=== PATIENT | male | born 1950 | race Caucasian/White ===

== ENCOUNTER 2016-11-15 01:19 | Inpatient (IN) | payer OTHER ==
[2016-11-15] VITALS (141 sets, daily range): BP systolic -4–141; BP diastolic -5–106; PULSE 81–153; TEMP 33.9–38.9; O2SAT 83–100; Ht 172.7 cm; Wt 90.5 kg
[~2016-11-15] VITALS: Ht 172.7 cm; Wt 90.5 kg
[~2016-11-15 01:19] MED LIST: AMX500 PO
[2016-11-15] MEDS ORDERED: HEPARIN SOD (PORCINE) 1000 UNIT/ML 10 ML VIAL ONE (01:26)
[2016-11-15] MEDS ORDERED: FENTANYL CITRATE INJ 50 MCG/1 ML 2 ML VIAL ONE ×2 (01:26→03:55)
[2016-11-15] MEDS ORDERED: NiCARDipine HCL INJ 2.5 MG/ML 10 ML AMP ONE (01:26)
[2016-11-15] MEDS ORDERED: MIDAZOLAM HCL 1 MG/ML 2ML VIAL ONE (01:26)
[2016-11-15] MEDS ORDERED: NITROGLYCERIN/D5W 100MCG/ML 20ML SYR ONE (01:27)
[2016-11-15] MEDS ORDERED: SODIUM CHLORIDE 0.9% 1000ML 1,000 ML IV STA (01:28)
[2016-11-15] MEDS ORDERED: MoRPHine SULFATE 2 MG/ML CARP IV PRN (01:30)
[2016-11-15] MEDS ORDERED: NITROGLYCERIN 0.4 MG SL PER TAB CHARGE SL PRN (01:30)
--- NOTE | 2016-11-15 01:35 | EMERGENCY ROOM VISIT NOTE ---
History Report prepared by Cassidy: Jeannette Francisco Under the Supervision of: Dr. Frank Tan M.D. First contact with patient: 01:08 Chief Complaint: HEART ALERT Stated Complaint: CHEST PAIN History of Present Illness The patient is a 65 year old male who presents to the Emergency Room with complaints of persistent chest pain that began earlier today, but worsened around 1700. He currently rates his discomfort as a 2/10, but states that it was initially 10/10 around 1700. Per EMS the patient was moving furniture all day and was experiencing persistent chest pain. EMS reports that the patient developed crushing chest pain that he rated as a 10/10 in severity. EMS reports that the patient additionally complained of diaphoresis, shortness of breath, and nausea. EMS states that the the patient has a history of hypertension and GERD and a family history of heart disease. The patient states that his father at 51 of a heart attack. The patient states that his pain radiated into his left neck and left shoulder. EMS reports that the patient called them around midnight regarding his pain. EMS reports that the patient received 324 mg of aspirin 4 mg of Zofran and 100 mcg of Fentanyl that has alleviated his discomfort from a 10/10 to a 2/10 in severity. The patient states that he was a previous smoker 35 years ago. The patient denies any dizziness or lightheadedness Source of History: patient, EMS Onset: today, worsened around 1700 Position: chest Symptom Intensity: 2/10 Quality: other (crushing) Timing: worsening, other (persistent) Associated Symptoms: + diaphoresis, + SOB, + nausea Review of Systems See HPI for pertinent positives and negatives. A total of ten systems were reviewed and were otherwise negative. Past Medical & Surgical Medical Problems: (1) Anterior myocardial infarction (2) Cardiogenic shock (3) GERD (gastroesophageal reflux disease) (4) Hypertension Family History Heart disease Social History Smoking Status: Former Smoker Current/Historical Medications Scheduled Lisinopril (Prinivil), 20 MG PO DAILY Omeprazole (Prilosec), 20 MG PO DAILY Allergies Coded Allergies: No Known Allergies (Unverified , NONE, 11/15/16) Physical Exam Vital Signs Date Time Temp Pulse Resp B/P (MAP) Pulse Ox O2 Delivery O2 Flow Rate FiO2 11/15/16 03:30 133 20 118/84 (95) 85 Mechanical Ventilator 100 8/9/17 03:15 121 20 101/71 (81) 86 Mechanical Ventilator 100 11/15/16 02:30 100 11/15/16 01:34 82 23 99 11/15/16 01:31 107/82 11/15/16 01:30 116/89 11/15/16 01:29 93 17 90 11/15/16 01:26 90 24 108/81 87 Room Air 11/15/16 01:26 87 Room Air 11/15/16 01:26 89 11/15/16 01:25 Nasal Cannula 2.0 11/15/16 01:24 90 30 108/81 87 11/15/16 01:23 87 Room Air Physical Exam GENERAL: Awake, alert, uncomfortable-appearing but in NAD HENT: Normocephalic, atraumatic. Dry mucous membranes. EYES: Normal conjunctiva. Sclera non-icteric. NECK: Supple. No nuchal rigidity. FROM. No JVD. RESPIRATORY: Clear to auscultation. CARDIAC: Regular rate, normal rhythm. Extremities warm and well perfused. Pulses equal. ABDOMEN: Soft, non-distended. No tenderness to palpation. No rebound or guarding. No masses. RECTAL: Deferred. MUSCULOSKELETAL: Chest examination reveals no tenderness. The back is symmetrical on inspection without obvious abnormality. There is no CVA tenderness to palpation. No joint edema. LOWER EXTREMITIES: Calves are equal size bilaterally and non-tender. No edema. No discoloration. NEURO: Normal sensorium. No sensory or motor deficits noted. SKIN: No rash or jaundice noted. Medical Decision & Procedures ER Provider Diagnostic Interpretation: 1 view chest x-ray interpretation, pending radiology review: mediastinum within normal limits, lungs are clear, no cardiomegaly Laboratory Results Test 11/15/16 01:29 11/15/16 01:36 11/15/16 01:38 11/15/16 02:43 Bedside Troponin I 0.440 ng/ml (0-0.045) Bedside Hemoglobin 17.0 g/dl (14.0-18.0) Bedside Hematocrit 50 % (42-52) Bedside Sodium 142 mEq/L (135-144) Bedside Potassium 4.4 mEq/L (3.3-5.0) Bedside Chloride 108 mEq/L (101-112) Bedside Total CO2 23 mEq/l (24-31) Bedside Blood Urea Nitrogen 26 mg/dl (7-18) Bedside Creatinine 1.3 mg/dl (0.6-1.3) Bedside Ionized Calcium (Boy) 1.22 mmol/l (1.12-1.32) Prothrombin Time 10.3 SECONDS (9.0-12.0) Prothromb Time International Ratio 1.0 (0.9-1.1) Activated Partial Thromboplast Time 26.9 SECONDS (21.0-31.0) Partial Thromboplastin Ratio 1.0 Total Bilirubin 0.3 mg/dl (0.2-1) Direct Bilirubin < 0.1 mg/dl (0-0.2) Aspartate Amino Transf (AST/SGOT) 32 U/L (15-37) Alanine Aminotransferase (ALT/SGPT) 38 U/L (12-78) Alkaline Phosphatase 73 U/L (45-117) Total Protein 7.2 gm/dl (6.4-8.2) Albumin 3.4 gm/dl (3.4-5.0) Globulin 3.8 gm/dl (2.5-4.0) Albumin/Globulin Ratio 0.9 (0.9-2) Kaolin Activated Coagulation Time 379 SECONDS (94-140) Laboratory results reviewed by me Medications Administered Medications (Trade) Dose Ordered Sig/[facility] Route Start Time Stop Time Status Last Admin Dose Admin Heparin Sodium (Porcine) (Heparin Iv Bolus) 10,000 unit STK-MED ONCE .ROUTE 11/15/16 01:26 11/15/16 01:27 DC 11/15/16 01:26 8,000 UNIT Fentanyl Citrate (Fentanyl Inj) 100 mcg STK-MED ONCE .ROUTE 11/15/16 01:26 11/15/16 01:27 DC 11/15/16 01:26 100 MCG Midazolam HCl (Versed Inj) 2 mg STK-MED ONCE .ROUTE 11/15/16 01:26 11/15/16 01:27 DC 11/15/16 01:26 2 MG Ondansetron HCl (Zofran Inj) 8 mg STK-MED ONCE .ROUTE 11/15/16 01:43 11/15/16 01:44 DC 11/15/16 01:43 8 MG Phenylephrine HCl (Hitesh-Synephrine Inj) 10 mg STK-MED ONCE .ROUTE 11/15/16 01:59 8/9/17 02:00 DC 11/15/16 01:59 10 MG Eptifibatide (Integrilin Inj) 75 mg STK-MED ONCE IV 11/15/16 02:05 11/15/16 02:06 DC 11/15/16 02:05 75 MG Eptifibatide (Integrilin Inj) 40 mg STK-MED ONCE IV 11/15/16 02:05 11/15/16 02:06 DC 11/15/16 02:05 40 MG Dopamine HCl/ Dextrose (DOPamine 400MG / D5W) 400 mg STK-MED ONCE .ROUTE 11/15/16 02:09 11/15/16 02:10 DC 11/15/16 02:09 400 MG Furosemide (Lasix Inj) 40 mg STK-MED ONCE .ROUTE 11/15/16 02:14 11/15/16 02:15 DC 11/15/16 02:14 40 MG Miscellaneous (Rapid Sequence Induction Bag) 1 ea STK-MED ONCE N/A 11/15/16 02:24 11/15/16 02:25 DC 11/15/16 02:24 1 EA Sodium Bicarbonate (Sodium Bicarbonate 8.4% Inj) 50 ml STK-MED ONCE IV 11/15/16 02:46 11/15/16 02:47 DC 11/15/16 02:46 50 ML Sodium Bicarbonate (Sodium Bicarbonate 8.4% Inj) 50 ml STK-MED ONCE IV 11/15/16 03:06 11/15/16 03:07 DC 11/15/16 03:06 50 ML ECG Indication: chest pain Rate (beats per minute): 89 Rhythm: normal sinus Findings: ST depression (reciprocal ST depressions consistent with STEMI), ST elevation (anterioseptal) ED Course 0100: I took the medical command call for the patient and a Code Heart Alert was called. 0119: The patient was evaluated in room B1. A complete history and physical exam was performed. I initiated the Heart Alert Protocol set at this time. 0123: Dr. Reyez, interventional cardiology arrived at the patients bedside for further evaluation and treatment. 0126: I spoke to the patients regarding the patients condition and Dr. Reyez, interventional Cardiology spoke to the patient about the risks and benefits of a heart catheterization. 0137: I discussed the patients case with Dakota Crandall. He is going to evaluate the patient for further treatment after the catheterization. 0141: The patient left for the cardiac catheterization lab at this time. Medical Decision I reviewed the patient's past medical history, medications, and the nursing notes as described above. The patient's presentation and history were concerning for STEMI, PE, unstable angina The patient is a 65 y/o gentle man who presents to the emergency department with acute onset CP of pressure on his chest at 1700 tonight in setting of intermittant pain throughout the day per HPI. Heart alert activated priro to arrival via Medical command after view transmitted 12 lead showing anterior- septal RADHA with inferior reciprocal STD. ASA by EMS. Fentanyl for pain with good effect. On arrival the patient appeared uncomfortable but in NAD. Able to speak full sentences with pain improved to 2/10. Dr. Reyez, cards interventionalist, at beside shortly after patient arrival and patient was taken to the labor conciliator. Medicine team made aware. Otherwise, Pre-labor conciliator panel sent, trop elevated. My CXR interpretation with clear lungs, no cardiomegaly, mediastinum wnl. Of note, patient decompensated in labor conciliator during procedure 2/2 evolving heart failure and required intubation. See Dr. Mackey's note for details. ICU attending updated. Medication Reconcilliation Current Medication List: was personally reviewed by me Blood Pressure Screening Patient's blood pressure: Normal blood pressure Consults Time Called: 0130 Consulting Physician: Dakota Crandall Returned Call: 0137 I discussed the patients case with Dakota Crandall. He is going to evaluate the patient for further treatment after the catheterization. Impression Primary Impression: STEMI (ST elevation myocardial infarction) Critical Care I have personally spent greater than 40 minutes of critical care time in the direct management of this patient. This includes bedside care, interpretation of diagnostic studies, and testing, discussion with consultants, patient, and family members, and other required patient management activities. This 40 minutes is in excess of all separately billable procedures. Scribe Attestation The scribe's documentation has been prepared under my direction and personally reviewed by me in its entirety. I confirm that the note above accurately reflects all work, treatment, procedures, and medical decision making performed by me. Departure Information Dispostion Being Evaluated By Hospitalist Referrals No Doctor, Assigned (PCP)
[2016-11-15] MEDS ORDERED: ONDANSETRON INJ 2 MG/ML 2 ML VIAL ONE (01:43)
[2016-11-15 01:46] LABS: HEMATOCRIT 47.7 % (42-52); MEAN CELL VOLUME 90.9 fL (80-100); MEAN CORPUSCULAR HEMOGLOBIN 31.8 pg (25-34); MEAN PLATELET VOLUME 11.8 fL (7.4-10.4); PLATELET COUNT 278 K/uL (130-400); RED BLOOD COUNT 5.25 M/uL (4.7-6.1); WHITE BLOOD COUNT 13.97 K/uL (4.8-10.8)
[2016-11-15] MEDS ORDERED: PRLSR20 PO (01:47)
[2016-11-15] MEDS ORDERED: LISI20TA3 PO (01:47)
[2016-11-15 01:54] LABS: PROTHROMBIN TIME (PATIENT) 10.3 SECONDS (9.0-12.0)
[2016-11-15 01:57] LABS: ISTAT CREATININE 1.3 mg/dl (0.6-1.3); ISTAT IONIZED CALCIUM 1.22 mmol/l (1.12-1.32)
[2016-11-15] MEDS ORDERED: PHENYLEPHRINE HCL INJ 10 MG/ML VIAL ONE (01:59)
[2016-11-15] MEDS ORDERED: EPTIFIBATIDE 0.75 MG/ML 75MG VIAL IV ONE (02:05)
[2016-11-15] MEDS ORDERED: EPTIFIBATIDE 2 MG/ML 10 ML VIAL IV ONE (02:05)
[2016-11-15 02:08] LABS: ALT/SGPT 38 U/L (12-78); AST/SGOT 32 U/L (15-37); BLOOD UREA NITROGEN 22 mg/dl (7-18); BUN/CREATININE RATIO 18.3 (10-20); CALCIUM 8.3 mg/dl (8.5-10.1); CARBON DIOXIDE 18 mmol/L (21-32); CHLORIDE 114 mmol/L (98-107); GLUCOSE 141 mg/dl (70-99); MAGNESIUM 1.8 mg/dl (1.8-2.4); POTASSIUM 4.2 mmol/L (3.5-5.1); SODIUM 141 mmol/L (136-145)
[2016-11-15] MEDS ORDERED: DOPamine 400MG / 250ML D5W ONE (02:09)
[2016-11-15 02:10] LABS: BASO % 0.3 %; BASO ABS # 0.04 K/uL (0-0.2); COMPLETE YES; EOS % 2.3 %; IG% 0.4 %; LYMPH % 35.9 %; LYMPH ABS # 5.02 K/uL (1.2-3.4); MONO % 6.9 %; NEUT % 54.2 %
[2016-11-15] MEDS ORDERED: FUROSEMIDE 40 MG/4 ML VIAL ONE (02:14)
[2016-11-15 02:24] LABS: ALB/GLOB RATIO 0.9 (0.9-2); ALKALINE PHOSPHATASE 73 U/L (45-117)
[2016-11-15] MEDS ORDERED: RAPID SEQUENCE INDUCTION BAG ONE (02:24)
--- NOTE | 2016-11-15 02:42 | EMERGENCY ROOM VISIT NOTE ---
ED Visit Note I was called to the cardiac catheterization laboratory as the patient was in need of an emergent airway. The patient had presented as a heart alert. As he was in the catheterization laboratory undergoing coronary stenting, he became short of breath and began to cough up heart failure appearing fluid. His O2 saturation began to drop. I was called to perform an intubation emergently. The patient was hyperoxygenated with bag valve mask ventilation. Respiratory was present. Intubation: Patient received 20 mg of etomidate IV, 120 mg of succinylcholine IV. The patient was hyper oxygenated. Using rapid technique, the patient was intubated with a Alberto two blade. Suction was required-heart failure fluid was noted to be coming from the trachea. No complication with the tube placement. The endotracheal tube was placed at 24 centimeters at the the lips. Good O2 saturation noted afterwards. Good CO2 color change. Breath sounds equal bilaterally. His tube placement will be confirmed via fluoroscopy. He is still undergoing his cardiac intervention. Of note, the patient was given 10 mg of IV vecuronium to maintain paralysis. Dr. Reyez has assumed care.
[2016-11-15] MEDS ORDERED: SODIUM BICARB 8.4% INJ 50 MEQ/50 ML SYR IV ONE ×2 (02:46→03:06)
[2016-11-15 03:32] LABS: ISTAT ARTERIAL BLOOD GAS HCO3 14 meq/L (19-24); ISTAT ARTERIAL BLOOD GAS PCO2 40 mmHg (35-46); ISTAT ARTERIAL BLOOD GAS PO2 51 mmHg (80-95); ISTAT ARTERIAL BLOOD GAS pH 7.16 (7.35-7.45); ISTAT CARBON DIOXIDE 16 mEq/l (24-31)
[2016-11-15 03:32] LABS: ISTAT ARTERIAL BLOOD GAS HCO3 14 meq/L (19-24); ISTAT ARTERIAL BLOOD GAS PCO2 38 mmHg (35-46); ISTAT ARTERIAL BLOOD GAS PO2 72 mmHg (80-95); ISTAT ARTERIAL BLOOD GAS pH 7.17 (7.35-7.45); ISTAT CARBON DIOXIDE 15 mEq/l (24-31)
[2016-11-15] MEDS ORDERED: PHENYLEPHRINE HCL INJ 20 MG in DEXTROSE 5% 500ML 500 ML IV PRN ×2 (03:52→04:00)
[2016-11-15] MEDS ORDERED: MIDAZOLAM HCL 1 MG/ML 2ML VIAL IV PRN (04:00)
[2016-11-15] MEDS ORDERED: FENTANYL CITRATE INJ 50 MCG/1 ML 2 ML VIAL IV PRN (04:00)
[2016-11-15] MEDS ORDERED: RANITIDINE IV 50 MG in DEXTROSE 5% 100ML 100 ML IV SCH (04:00)
[2016-11-15] MEDS ORDERED: ENOXAPARIN 30 MG/0.3 ML SYR SQ SCH (04:00)
[2016-11-15] MEDS ORDERED: ONDANSETRON INJ 8 MG in DEXTROSE 5% 50ML 50 ML IV PRN (04:00)
[2016-11-15] MEDS ORDERED: EPTIFIBATIDE BOLUS / DRIP IV ONE (04:00)
[2016-11-15] MEDS ORDERED: ATROPINE SULFATE 0.1 MG/ML 5ML SYR IV PRN (04:00)
[2016-11-15] MEDS ORDERED: MIDAZOLAM 125MG/250ML D5W IV ONE (04:18)
[2016-11-15] MEDS ORDERED: MIDAZOLAM HCL 1 MG/ML 2ML VIAL IV STA (04:25)
--- NOTE | 2016-11-15 04:49 | Cardiac Catheterization ---
Procedure Note Procedure Date Nov 15, 2016. Pre-Procedure Diagnosis STEMI AUC Score 9 Post-Procedure Diagnosis Severe CAD, Successful PCI, Decreased LV Systolic Function, Elevated Intracardiac Pressures Procedure(s) Performed Coronary Angiography, Left Heart Cath, LV Angiography, PTCA, Drug Eluting Stent Wood Finisher Dr. Reyez Space Operations(s) Harriett Ba, DIRECTOR [employer]POR[employer]URITY Estimated Blood Loss 50 Medication(s) Dopamine, Fentanyl, Heparin, Integrilin, Hitehs-Synephrine, Nicardipine (Intra- arterial and intracoronary), Versed, Lidocaine 1% IV sodium bicarbonate . IV etomidate,succinylcholine, Vecuronium for endotracheal intubation. Summary of Findings Indications: Acute anterior ND Cath site: 6 Fr [place]ender [place] right radial artery Hemostasis: Terumo TR band. Equipment and protocol: Initial left coronary angiography was attempted with a 3.75 EBU guide catheter. This catheter would not adequately cannulate the left main coronary artery. Was then exchanged for an EBU 3.5 guide catheter which adequately cannulated the left main coronary artery. A [place] guidewire was then advanced across a total proximal LAD occlusion. PTCA was then performed to the proximal LAD with an Abbot 2.5 x 12 millimeter balloon dilatation catheter. Four balloon inflations to a maximum pressure of 8 atmospheres and maximum duration of 25 seconds performed. Prior to intervention intravenous heparin and Integrilin had been administered. A therapeutic activated clotting time was subsequently documented. Because of respiratory distress intravenous furosemide was administered.. Because of hypotension intravenous dopamine and Hitesh-Synephrine were initiated. A Medtronic Resolute 2.5 x 26 millimeter drug-eluting stent was then deployed in the proximal LAD at a pressure of 9 atmospheres for duration of 35 seconds. Because of continued respiratory distress the patient was then endotracheally intubated by the emergency department physician. He was then placed on mechanical ventilation. A 2nd Medtronic Resolute stent was then deployed distal to the 1st stent in an overlapping fashion. This was a 2.5 x 22 millimeter stent. Deployed at a pressure of 8 atmospheres for duration of 45 seconds. The overlap site of the stents was then post dilated with the 2nd stent delivery balloon to a pressure of 14 atmospheres for duration of 15 seconds. Proximal stent was post dilated with the 2nd stent delivery balloon with 2 inflations to 14 atmospheres for duration of 15 seconds. Follow-up angiography was then performed from orthogonal projections with guidewire in place and then withdrawn. Right coronary angiography was then performed with a 6 [place] JR4 diagnostic catheter. Left heart catheterization and left ventricular angiography were then performed with a 6 [place] pigtail catheter. Left ventricular angiography was performed with a hand injection of contrast dye in the 30 degree right anterior oblique projection. Findings: Fluoroscopy revealed coronary calcifications. The coronary circulation was right dominant. Large caliber left main coronary artery which gave rise to medium caliber left anterior descending and left circumflex coronary arteries. There was an ostial 20 percent left main stenosis. 100% proximal LAD occlusion. KOBI 0 flow. After PTCA with 2.5 X 12 mm Trek balloon KOBI 2 flow. 75% mid LAD stenosis noted. PTCA performed to mid LAD. Following PTCA to the proximal and mid LAD there were residual 50 percent stenoses in the proximal mid LAD. Medtronic Resolute 2.5 X 26 mm and 2.5 X 22 mm SHAWANDA deployed in proximal to mid LAD in overlapping fashion. No dissection, thrombus, perforation,or distal embolic event. KOBI 3 flow post stents. The residual stenosis at the stent sites was 0-10 percent. The mid LAD after the stent had a 20 percent stenosis. The proximal LAD gave rise to a very small caliber 1st diagonal artery. Mid LAD gave rise to a small caliber 2nd diagonal artery. It then gave rise to very small caliber 3rd and 4th diagonal arteries. The distal LAD had no obstructive disease. It wrapped around the apex as a very small caliber vessel. On initial angiography L-R collaterals seen . The LAD and left circumflex supplied collateral flow to the right posterolateral artery and right posterior descending artery. These vessels were visualized as very small caliber vessels. The RCA itself was a medium caliber vessel. 50,30 percent proximal stenoses. 50 percent mid segment stenosis. After the origin of a right ventricular branch the right coronary artery was totally occluded. The appearance was that of a chronic total occlusion. The ostial left circumflex had 30 percent stenosis. The proximal left circumflex gave rise to a long medium caliber 1st marginal artery. The 1st marginal had a 20 percent proximal stenosis and 20 percent mid segment stenosis. Following the origin of this marginal the mid circumflex had 20 percent stenosis. The circumflex gave rise to a very small caliber 2nd marginal artery and then to a long small caliber 3rd marginal artery. Following the origin of the marginal the circumflex continued on in the atrioventricular groove as a very small caliber vessel. LV angiography from the 30 degree right anterior oblique projection all ( hand injection) with global LV hypokinesis. The hypokinesis in the posterobasal and diaphragmatic segments was severe. Estimated LVEF 25-30%. Complications: No coronary complications. Patient did have development of pulmonary edema requiring ET intubation . Hypotension requiring pressors. Plan: IV Integrilin for 24 hrs. ASA and clopidogrel. Statin. Mechanical ventilation. IV sedation. Continue pressors to maintain MAP > 60 mm Hg. Serial labs,ECG. Stat echo now to further assess LV function and to assess for mechanical defect. Beta mihaela and JORGE LUIS inhibitor when hemodynamically stable. Hemodynamics Rest Ao: 90/64/76 mm Hg Final Ao: 89/58/74 mm Hg LV: 94/30 mm Hg Recommendations Medical therapy and/or Counseling, PCI without planned CABG Specimens None Radiation Exposure (mGy) 3448 Contrast (mls) 120 ml Visipaque Fluids (cc crystalloids) 250 Drains none Anesthesia IV Versed,fentanyl, etomidate Procedural Complication(s) None Disposition ICU ACC Data Cardiac Status Clinical evaluation leading to the procedure CAD Presntation: STEMI Anginal Classification: CCS IV Heart Failure: NYHA Class: CCS IV Cardiogenic Shock w/in 24Hrs: Yes Cardiac Arrest w/in 24Hrs: No Imaging studies past 6 months: No Stress studies past 6 months: No Standard Exercise Stress Test: No Stress Echocardiogram: No Stress Testing w/SPECT MPI: No Cardiac CTA: No Coronary Anatomy Dominant: Right Left Main (% Stenosis): Normal LAD (% Stenosis): Proximal (100), Mid (20) D1 (% Stenosis): Normal D2 (% Stenosis): Ostial (50) D3 (% Stenosis): Normal Circumflex (% Stenosis): Ostial (30), Mid (30) OM1 (% Stenosis): Proximal (20), Mid (20,20) RCA (% Stenosis): Proximal (50,30), Mid (50,100) Left Ventricular Angiography EF (%): 30 Wall Motion: Inferior (Hypokinetic), Apical (Hypokinetic), Anterior ( Hypokinetic) Mitral Regurgitation: None Diagnostic Physician's Name: Carter Reyez M.D. Status: Emergency Closure Device Percutaneous Entry Location: Radial Closure Device: Radial Band Recommendations: Medical therapy and/or Counseling, PCI without planned CABG PCI Indication: Immediate PCI for STEMI First Noted: First EKG Lesion Segment Name: proximal LAD Culprit Artery: Yes Stenosis Prior to Rx (%): 100 Chronic Total Occlusion: No IVUS: No FFR: No Pre-Procedure KOBI Flow: 0 Previously Treated Lesion: No Lesion Complexity: Non-High/Non-C Lesion Length (mm): 20 Thrombus Present: Yes Bifurcation Lesion: No Guidewire Across Lesion: Yes Guidewire: Stenosis Post-Procedure (%): 0 Post-Procedure KOBI Flow: 3 Device(s) Deployed: Yes Type of Device(s): Medtronic Resolute 2.5 X 26 mm SHAWANDA Lesion #2 Segment Name: mid LAD Culprit Artery: Yes Stenosis Prior to Rx (%): 75 Chronic Total Occlusion: No IVUS: No FFR: No Pre-Procedure KOBI Flow: 3 Previously Treated Lesion: No Lesion Complexity: Non-High/Non-C Lesion Length (mm): 15 Thrombus Present: No Bifurcation Lesion: No Guidewire Across Lesion: Yes Guidewire: Stenosis Post-Procedure (%): 0 Post-Procedure KOBI Flow: 3 Device(s) Deployed: Yes Type of Device(s): Medtronic Resolute 2.5 X 22 mm SHAWANDA Intraprocedure Events Significant Dissection: No Perforation: No
[2016-11-15 05:08] LABS: ISTAT ALLEN TEST Pass; ISTAT ARTERIAL BLOOD GAS HCO3 19 meq/L (19-24); ISTAT ARTERIAL BLOOD GAS PCO2 40 mmHg (35-46); ISTAT ARTERIAL BLOOD GAS PO2 59 mmHg (80-95); ISTAT ARTERIAL BLOOD GAS pH 7.28 (7.35-7.45); ISTAT CARBON DIOXIDE 21 mEq/l (24-31); ISTAT DELIVERY SYSTEM Ventilator; ISTAT FIO2 100 %; ISTAT PEEP 10; ISTAT RATE 16; ISTAT SITE L Radial; VE 12.1; Vt 600
[2016-11-15 05:28] LABS: HEMATOCRIT 50.3 % (42-52); MEAN CORPUSCULAR HEMOGLOBIN 32.4 pg (25-34); MEAN CORPUSCULAR HGB CONC 35.6 g/dl (32-36); MEAN PLATELET VOLUME 12.3 fL (7.4-10.4); PLATELET COUNT 337 K/uL (130-400); RED BLOOD COUNT 5.53 M/uL (4.7-6.1)
[2016-11-15] MEDS: EPTIFIBATIDE INJ 75 MG PREMIXED IV SCH ×2 (05:46→12:18)
[2016-11-15 05:51] LABS: BLOOD UREA NITROGEN 23 mg/dl (7-18); BUN/CREATININE RATIO 16.5 (10-20); CALCIUM 7.7 mg/dl (8.5-10.1); CARBON DIOXIDE 20 mmol/L (21-32); CHLORIDE 105 mmol/L (98-107); CHOLESTEROL 238 mg/dl (0-200); CHOLESTEROL/HDL RATIO 6.8; HDL CHOLESTEROL 35 mg/dl; MAGNESIUM 1.6 mg/dl (1.8-2.4); SODIUM 134 mmol/L (136-145); TRIGLYCERIDES 209 mg/dl (0-150); VERY LOW DENSITY LIPOPROT CALC 42 mg/dl
[2016-11-15 05:54] LABS: GLUCOSE 425 mg/dl (70-99)
[2016-11-15 06:12] LABS: BASO % 0.1 %; BASO ABS # 0.03 K/uL (0-0.2); COMPLETE YES; EOS % 0.1 %; IG% 0.6 %; LYMPH ABS # 2.64 K/uL (1.2-3.4); MONO % 2.2 %
[2016-11-15] MEDS ORDERED: MAGNESIUM SULFATE 1GM / D5W 1 GM in PREMIXED IN D5W 100 ML IV STA ×2 (06:21→21:45)
[2016-11-15] MEDS ORDERED: GLUCAGON FOR INJ 1 MG VIAL SQ PRN (06:30)
[2016-11-15] MEDS ORDERED: GLUCOSE 40% GEL 15 GM TUBE PO PRN (06:30)
[2016-11-15] MEDS ORDERED: GLUCOSE 10 TABS/TUBE PO PRN (06:30)
[2016-11-15] MEDS ORDERED: DEXTROSE 50% 50 ML SYR IV PRN (06:30)
--- NOTE | 2016-11-15 06:42 | HISTORY & PHYSICAL EXAMINATION ---
DATE OF ADMISSION: 11/15/2016 PRIMARY CARE PHYSICIAN: Dr. Lobo. CHIEF COMPLAINT: Off and on chest pain since last morning. HISTORY OF PRESENT COMPLAINT: He is a 65-year-old male with significant past medical history including hypertension, hyperlipidemia, history of duodenal ulcer, history of back pain with sciatica and a strong family history of ischemic heart disease. Apparently he has been complaining of chest pain off and on since yesterday morning. The pain got worse around 5:00 p.m. yesterday and it went up to about 10/10. At that time, he was feeling that somebody was sitting on his chest associated with shortness of breath, diaphoresis, nausea. He called EMS for help and he received 324 mg of aspirin and 4 mg of Zofran and also got fentanyl IV. In the Emergency Room, he was noted to have ST elevation CA in the anterior leads and from that point, Heart Alert was called and he was straightaway taken to the cardiac labor union business representative by Dr. Reyez. In the labor union business representative, the patient was having difficulty breathing and his saturation was going down and also blood pressure was going down as well. At that time, the ER physician was called and he was intubated. The cath was finished and it did show that he has complete occlusion of LAD and he is status post 2 stent placement in that area and also he has blockage of the right coronary artery and circumflex artery had good collaterals. At one point, the thought was given that the patient might need to be transferred to tertiary care center for blood pressure control. He was started with vasopressor and he was transferred to ICU. In the ICU, when I saw the patient, his blood pressure is improving and his saturation is improving as well. He receives Lasix as well for pulmonary edema. PAST MEDICAL HISTORY: Back pain with sciatica, a strong family history of ischemic heart disease, hyperlipidemia, not been taking any medications, duodenal ulcer and essential hypertension. PAST SURGICAL HISTORY: Nothing significant. FAMILY HISTORY: Father had heart disorder, at the age of 51. Mother has lymph node cancer. Brother has throat cancer. SOCIAL HISTORY: He is . He quit smoking in 1980 and he smoked 3 packs per day for 20 years. He does not use any alcohol and he is reasonably active. ALLERGIES: NKDA. MEDICATIONS: From the Epic chart, he has been on lisinopril 20 mg tablet daily and omeprazole 20 mg daily. REVIEW OF SYSTEMS: Was not able to get as the patient is intubated. PHYSICAL EXAMINATION: VITAL SIGNS: In the ICU, temperature 34.8 rectal, pulse is 130, blood pressure 135/62 and saturation 88% on 100% FiO2. HEENT: Unremarkable. NECK: Supple. No JVD, no bruit. CHEST: Decreased breath sounds with coarse crackles at the bases. HEART: S1, S2 regular. No definite murmur appreciated. ABDOMEN: Nondistended, soft, benign. No organomegaly. Bowel sounds present. RECTAL: Deferred. EXTREMITIES: Negative for any edema. CENTRAL NERVOUS SYSTEM: He was intubated and was on sedation. LABORATORY DATA: Noted today, white count was 13.97, H&H 16.7/47.7, platelet was 278. Chemistry: Sodium 142, potassium 4.4, chloride 108, carbon dioxide 23, anion gap 16, BUN of 26 and creatinine 1.20, random glucose 141, calcium 8.3. LFTs unremarkable. CK-MB was 11.2. Troponin initial one was 0.440 that was POC troponin and lab troponin was 0.669, albumin 3.4. INR 1.0, PTT ratio 1.0. Active coagulation time 379. Chest x-ray consistent with pulmonary edema, but no infiltration. EKG sinus rhythm with multiple ventricular ectopics, ST elevation anterior leads, IVCD with associated ST-T wave changes. There are no prior EKGs to compare. IMPRESSION AND PLAN: 1.RADHA myocardial infarction anterior, Coronary Angiography, Left Heart Cath, LV Angiography, PTCA, Drug Eluting Stent. The patient is admitted to the ICU, has been on Integrilin drip and also received aspirin, Plavix and statin. Further management as per physiology teacher. 2. Status post intubation and mechanical ventilation. The patient's condition deteriorated during the catheterization procedure secondary to pulmonary edema and required intubation.Now sedated on Vent in ICU. Further vent management as per business applications analyst. 3. Low blood pressure with Hypoxemia and acidosis Started on intravenous pressor agents and IV Bicarbonate x2 for Acidosis. Will monitor blood gas while in the ICU. Cannot give much fluids due to pulmonary edema. Blood pressure and saturation have been improving when I saw the patient. 4. Hyperlipidemia. Last cholesterol was checked in 2014. At that time, total cholesterol, LDL and triglycerides mildly elevated and HDL was borderline at 36. He has not been taking any statin medications. We will start atorvastatin while in the hospital. 5. History of duodenal ulcer, has been on Protonix, we will continue with that. 6.Leukocytosis.Likely secondary to Stress.Doubt any infection /Will not start any antibiotic yet 7. Deep venous thrombosis prophylaxis, has been on Integrilin. Will need subsequent prophylaxis 8. Gastrointestinal prophylaxis with Ranitidine. 9. Code status. He will be a full code. In my clinical judgment, the beneficiary meets criteria as per CMS for 2 midnight admission in the hospital. MELISSA
[2016-11-15] MEDS ORDERED: INSULIN ASPART 100 UNITS/ML 3 ML PEN SC SCH (06:45)
--- NOTE | 2016-11-15 07:22 | DIAGNOSTIC IMAGING REPORT ---
CHEST ONE VIEW PORTABLE CLINICAL HISTORY: HEART ALERT dyspnea COMPARISON STUDY: No previous studies for comparison. FINDINGS: Mild/moderate fullness right hilum. Mild fullness mid mediastinum. Moderate prominence pulmonary vasculature. Diaphragms smooth. IMPRESSION: 1. Findings consistent with developing congestive failure. 2. Fullness right hilum and mid mediastinum. CT of the chest is recommended on a routine basis to exclude any possibility of adenopathy. The above report was generated using voice recognition software. It may contain grammatical, syntax or spelling errors. Electronically signed by: Idris Schaffer M.D. 11/15/2016 7:21 AM Dictated Date/Time: 11/15/2016 7:19 AM
[2016-11-15 07:36] LABS: BETA-HYDROXYBUTYRATE 1.51 mg/dL (0.2-2.81); CKMB/CK RATIO 8.7 (0-3.0)
[2016-11-15 07:38] LABS: ESTIMATED AVERAGE GLUCOSE 105 mg/dl; HA1C FLAG Normal (Normal)
[2016-11-15] MEDS ORDERED: PNEUMOCOCCAL ADMINISTRATION CHARGE ONE (08:00)
[2016-11-15] MEDS ORDERED: PNEUMOCOCCAL POLYSACCHARIDES 25 MCG/0.5 ML VIAL/SYR IM. ONE (08:00)
[2016-11-15] MEDS: CHLORHEXIDINE GLUCONATE 0.12% 480 ML MT SCH (08:12)
[2016-11-15] MEDS: ARTIFICIAL TEARS OP SOLN OP SCH ×2 (08:13)
--- NOTE | 2016-11-15 08:13 | Progress Note ---
Medicine Progress Note Date & Time of Visit: Nov 15, 2016 at 07:50 . Subjective Presented to ED during the night with anterior STEMI. Found to have 100% proximal LAD occlusion, 75% mid LAD stenosis, 100% RCA occlusion. PCI with SHAWANDA x 2 performed. Required intubation for respiratory failure due to pulmonary edema. Required pressors for cardiogenic shock. Remains intubated and sedated this morning. . Objective Last 8 Hrs Date Time Temp Pulse Resp B/P (MAP) Pulse Ox O2 Delivery O2 Flow Rate FiO2 11/15/16 07:33 100 11/15/16 06:01 35.4 90 15 117/76 (90) 97 11/15/16 05:34 100 11/15/16 05:31 35.2 99 23 113/84 (94) 93 11/15/16 05:20 35.2 108 19 11/15/16 05:16 35.3 111 18 114/88 (97) 96 11/15/16 05:05 35.1 111 19 95 11/15/16 05:01 35.1 111 19 110/80 (90) 97 11/15/16 04:50 35.2 114 44 97 11/15/16 04:47 35.2 114 21 110/67 (81) 88 11/15/16 04:35 35.2 96 24 91 11/15/16 04:31 33.9 90 18 124/81 (95) 91 11/15/16 04:20 35.0 83 23 85 11/15/16 04:15 34.8 130 18 135/62 88 Mechanical Ventilator 100 11/15/16 04:15 34.4 87 24 109/78 (88) 87 11/15/16 04:05 35.1 103 24 90 11/15/16 04:01 35.1 112 16 119/86 (97) 88 11/15/16 03:50 35.3 148 85 11/15/16 03:49 35.3 134 127/92 (104) 91 11/15/16 03:35 100 11/15/16 03:30 133 20 118/84 (95) 85 Mechanical Ventilator 100 11/15/16 03:15 121 20 101/71 (81) 86 Mechanical Ventilator 100 11/15/16 02:30 100 11/15/16 01:34 82 23 99 11/15/16 01:31 107/82 11/15/16 01:30 116/89 11/15/16 01:29 93 17 90 11/15/16 01:26 90 24 108/81 87 Room Air 11/15/16 01:26 87 Room Air 11/15/16 01:26 89 11/15/16 01:25 Nasal Cannula 2.0 11/15/16 01:24 90 30 108/81 87 11/15/16 01:23 87 Room Air Physical Exam: General- sedated, no acute distress Eyes- pupils 3 mm, reactive; anicteric ENT- oral ETT Neck- + JVD Lungs- scattered rhonchi Heart- RRR, apical S3 Abdomen- quiet, soft, nondistended Extremities- no pretibial edema or calf tenderness Neuro- sedated . Laboratory Results: Last 24 Hours Test 11/15/16 01:28 11/15/16 01:29 11/15/16 01:36 11/15/16 01:38 Creatine Kinase MB Ratio Bedside Troponin I 0.440 ng/ml Bedside Hemoglobin 17.0 g/dl Bedside Hematocrit 50 % Bedside Sodium 142 mEq/L Bedside Potassium 4.4 mEq/L Bedside Chloride 108 mEq/L Bedside Total CO2 23 mEq/l Anion Gap 16.0 mmol/L 9.0 mmol/L Bedside Blood Urea Nitrogen 26 mg/dl Bedside Creatinine 1.3 mg/dl Bedside Glucose (other) 114 mg/dl Bedside Ionized Calcium (Boy) 1.22 mmol/l White Blood Count 13.97 K/uL Red Blood Count 5.25 M/uL Hemoglobin 16.7 g/dL Hematocrit 47.7 % Mean Corpuscular Volume 90.9 fL Mean Corpuscular Hemoglobin 31.8 pg Mean Corpuscular Hemoglobin Concent 35.0 g/dl Platelet Count 278 K/uL Mean Platelet Volume 11.8 fL Neutrophils (%) (Auto) 54.2 % Lymphocytes (%) (Auto) 35.9 % Monocytes (%) (Auto) 6.9 % Eosinophils (%) (Auto) 2.3 % Basophils (%) (Auto) 0.3 % Neutrophils # (Auto) 7.57 K/uL Lymphocytes # (Auto) 5.02 K/uL Monocytes # (Auto) 0.97 K/uL Eosinophils # (Auto) 0.32 K/uL Basophils # (Auto) 0.04 K/uL RDW Standard Deviation 44.9 fL RDW Coefficient of Variation 13.6 % Immature Granulocyte % (Auto) 0.4 % Immature Granulocyte # (Auto) 0.05 K/uL Prothrombin Time 10.3 SECONDS Prothromb Time International Ratio 1.0 Activated Partial Thromboplast Time 26.9 SECONDS Partial Thromboplastin Ratio 1.0 Sodium Level 141 mmol/L Potassium Level 4.2 mmol/L Chloride Level 114 mmol/L Carbon Dioxide Level 18 mmol/L Blood Urea Nitrogen 22 mg/dl Creatinine 1.20 mg/dl Est Creatinine Clear Calc Drug Dose 58.6 ml/min Estimated GFR () 72.6 Estimated GFR (Non- 62.6 BUN/Creatinine Ratio 18.3 Random Glucose 141 mg/dl Calcium Level 8.3 mg/dl Magnesium Level 1.8 mg/dl Total Bilirubin 0.3 mg/dl Direct Bilirubin < 0.1 mg/dl Aspartate Amino Transf (AST/SGOT) 32 U/L Alanine Aminotransferase (ALT/SGPT) 38 U/L Alkaline Phosphatase 73 U/L Creatine Kinase MB 11.2 ng/ml Troponin I 0.669 ng/ml Total Protein 7.2 gm/dl Albumin 3.4 gm/dl Globulin 3.8 gm/dl Albumin/Globulin Ratio 0.9 Test 11/15/16 01:59 11/15/16 02:42 11/15/16 02:43 11/15/16 03:01 Kaolin Activated Coagulation Time 263 SECONDS 379 SECONDS Bedside Blood Gas pH (LAB) 7.17 7.16 Bedside Blood Gas pCO2 (LAB) 38 mmHg 40 mmHg Bedside Blood Gas pO2 (LAB) 72 mmHg 51 mmHg Bedside Blood Gas HCO3 (LAB) 14 meq/L 14 meq/L Bedside Blood Gas Total CO2 15 mEq/l 16 mEq/l Bedside Blood Gas Base Excess (LAB) -15.0 meq/L -14.0 meq/L Bedside Blood Gas O2 Saturation 90.0 % 76.0 % Test 11/15/16 04:45 11/15/16 04:55 11/15/16 06:30 White Blood Count 33.20 K/uL Red Blood Count 5.53 M/uL Hemoglobin 17.9 g/dL Hematocrit 50.3 % Mean Corpuscular Volume 91.0 fL Mean Corpuscular Hemoglobin 32.4 pg Mean Corpuscular Hemoglobin Concent 35.6 g/dl Platelet Count 337 K/uL Mean Platelet Volume 12.3 fL Neutrophils (%) (Auto) 89.0 % Lymphocytes (%) (Auto) 8.0 % Monocytes (%) (Auto) 2.2 % Eosinophils (%) (Auto) 0.1 % Basophils (%) (Auto) 0.1 % Neutrophils # (Auto) 29.57 K/uL Lymphocytes # (Auto) 2.64 K/uL Monocytes # (Auto) 0.73 K/uL Eosinophils # (Auto) 0.04 K/uL Basophils # (Auto) 0.03 K/uL RDW Standard Deviation 45.0 fL RDW Coefficient of Variation 13.5 % Immature Granulocyte % (Auto) 0.6 % Immature Granulocyte # (Auto) 0.19 K/uL Sodium Level 134 mmol/L Potassium Level 4.0 mmol/L Chloride Level 105 mmol/L Carbon Dioxide Level 20 mmol/L Anion Gap 9.0 mmol/L Blood Urea Nitrogen 23 mg/dl Creatinine 1.40 mg/dl Est Creatinine Clear Calc Drug Dose 50.2 ml/min Estimated GFR () 60.3 Estimated GFR (Non- 52.0 BUN/Creatinine Ratio 16.5 Random Glucose 425 mg/dl Estimated Average Glucose 105 mg/dl Hemoglobin A1c 5.3 % Lactic Acid Level 2.6 mmol/L Calcium Level 7.7 mg/dl Magnesium Level 1.6 mg/dl Triglycerides Level 209 mg/dl Cholesterol Level 238 mg/dl HDL Cholesterol 35 mg/dl LDL Cholesterol Direct 168 mg/dl LDL Cholesterol, Calculated mg/dl VLDL Cholesterol, Calculated 42 mg/dl Cholesterol/HDL Ratio 6.8 Chemistry Specimen Hemolysis Blood Gas Sample Site L Radial Bedside Blood Gas pH (LAB) 7.28 Bedside Blood Gas pCO2 (LAB) 40 mmHg Bedside Blood Gas pO2 (LAB) 59 mmHg Bedside Blood Gas HCO3 (LAB) 19 meq/L Bedside Blood Gas Total CO2 21 mEq/l Bedside Blood Gas Base Excess (LAB) -8.0 meq/L Bedside Blood Gas O2 Saturation 90.0 % Gold Test Pass Oxygen Delivery Device Ventilator Bedside Oxygen Rate (breaths/min) 16 Blood Gas Minute Ventilation 12.1 Bedside FiO2 100 % Blood Gas Tidal Volume 600 Blood Gas PEEP 10 Total Creatine Kinase 8409 U/L Creatine Kinase MB 729.1 ng/ml Creatine Kinase MB Ratio 8.7 Troponin I > 200.000 ng/ml Beta-Hydroxybutyric Acid 1.51 mg/dL Date/Time Source Procedure Growth Status 11/15/16 03:55 Nasal MRSA DNA Surveillance Screen Pending Received Assessment & Plan STEMI PULMONARY EDEMA ACUTE RESPIRATORY FAILURE CARDIOGENIC SHOCK HYPERGLYCEMIA LEUKOCYTOSIS Critically ill with multiple problems as summarized above. Case discussed with CCM and Cardiology. Family at bedside and given update. . Current Inpatient Medications: Current Inpatient Medications Medications (Trade) Dose Ordered Sig/Guillaume Route Start Time Stop Time Status Last Admin Dose Admin Atropine Sulfate (Atropine Sulfate 0.1MG/Ml Inj) 0.5 mg ONE PRN IV 11/15/16 04:00 12/15/16 03:59 Ondansetron HCl 8 mg/Dextrose 54 ml @ 200 mls/hr Q6H PRN IV 11/15/16 04:00 12/15/16 03:59 Aspirin (Ecotrin Tab) 81 mg QAM PO 11/15/16 09:00 12/15/16 08:59 Clopidogrel Bisulfate (plAVix TAB) 75 mg QAM PO 11/15/16 09:00 12/15/16 08:59 Atorvastatin Calcium (Lipitor Tab) 80 mg QAM PO 11/15/16 09:00 12/15/16 08:59 Fentanyl Citrate (Fentanyl Inj) 50 mcg Q1H PRN IV 11/15/16 04:00 11/29/16 03:59 11/15/16 05:02 50 MCG Dopamine HCl/ Dextrose 0 ml @ 0 mls/hr Q0M PRN IV 11/15/16 03:52 12/15/16 03:51 Lansoprazole (Prevacid Solutab) 30 mg DAILY PO 11/15/16 09:00 12/15/16 08:59 Phenylephrine HCl 20 mg/Dextrose 502 ml @ 0 mls/hr Q0M PRN IV 11/15/16 03:52 12/15/16 03:51 11/15/16 06:17 281 MLS/HR Midazolam HCl (Versed Inj) 1 mg Q1HWA PRN IV 11/15/16 04:00 12/15/16 03:59 Midazolam HCl 250 ml @ 0 mls/hr Q0M PRN IV 11/15/16 03:52 12/15/16 03:51 Ranitidine HCl 50 mg/Dextrose 102 ml @ 200 mls/hr Q8H IV 11/15/16 04:00 12/15/16 03:59 11/15/16 05:45 200 MLS/HR Eptifibatide 100 ml @ 13 mls/hr Q7H42M IV 11/15/16 04:45 11/16/16 07:00 11/15/16 05:46 13 MLS/HR Miscellaneous (Stop Order) 1 ea 0700 ONCE N/A 11/16/16 07:00 11/16/16 07:01 Insulin Aspart (novoLOG ASPART) SLIDING SCALE G... ACHS SC 11/15/16 06:45 12/15/16 06:44 11/15/16 06:36 10 UNITS Glucose (Glucose 40% Gel) 15-30 GRAMS 15 GRAMS... UD PRN PO 11/15/16 06:30 12/15/16 06:29 Glucose (Glucose Chew Tab) 4-8 Tablets 4 Tabl... UD PRN PO 11/15/16 06:30 12/15/16 06:29 Dextrose (Dextrose 50% 50ML Syringe) 25-50ML OF 50% DW IV FOR... UD PRN IV 11/15/16 06:30 12/15/16 06:29 Glucagon (Glucagon Inj) 1 mg UD PRN SQ 11/15/16 06:30 12/15/16 06:29 Chlorhexidine Gluconate (Peridex Oral Soln) 15 ml DAILY MT 11/15/16 09:00 12/15/16 08:59 Artificial Tears (Artificial Tears) 1 drops DAILY OP 11/15/16 09:00 12/15/16 08:59
--- NOTE | 2016-11-15 08:15 | DIAGNOSTIC IMAGING REPORT ---
CHEST ONE VIEW PORTABLE HISTORY: Right subclavian central venous catheter placement. COMPARISON: Chest 11/15/2016. FINDINGS: Interval placement of a right subclavian central venous catheter. The tip terminates in the expected location of the SVC. No pneumothorax. The endotracheal tube terminates 3.9 cm from the jennifer. The heart is normal in size. Bilateral perihilar airspace opacities have developed in the interval. There may be a small right pleural effusion. IMPRESSION: 1. Satisfactory support line placement. 2. Bilateral perihilar airspace opacities. This may represent pulmonary edema or pneumonia. 3. Suspect a small right pleural effusion. Electronically signed by: Ken Ray M.D. 11/15/2016 8:14 AM Dictated Date/Time: 11/15/2016 8:12 AM
--- NOTE | 2016-11-15 08:50 | CARDIOLOGY CONSULTATION ---
DATE OF CONSULTATION: 11/15/2016 PRIMARY PHYSICIAN: Alex Lobo DO REFERRING PHYSICIAN: Frank Tan MD ATTENDING PHYSICIAN: Brett Rossi MD CONSULTATION: Carter Reyez MD HISTORY OF PRESENT ILLNESS: The patient is a 65-year-old white male. No prior history of CAD. Coronary artery disease risk factors include hypertension, dyslipidemia, and family history of premature coronary artery disease. His father at age 51 of a myocardial infarction. The patient states that he is not on any medical therapy for his dyslipidemia. He is not on any antihypertensive therapy. He had no prior history of coronary artery disease. In the late afternoon of 11/14/2016, he developed intermittent chest pressure radiating into his neck. This could be associated with nausea, weakness, dyspnea, and diaphoresis. The pain would come and go. At approximately 11:00 p.m. on 11/14/2016, the pain became persistent. Because it did not resolve, he ultimately called emergency medical services. Electrocardiogram was performed in the field. This revealed an acute anterior myocardial infarction. The electrocardiogram was transmitted to the [facility]. Based on the electrocardiogram, a Heart Alert was called. The patient received aspirin, fentanyl, and Zofran by EMS staff. On arrival to the Emergency Department, he was still complaining of chest discomfort. Electrocardiogram performed in the field revealed sinus rhythm at a rate of [address] elevations and prominent T waves in V1-V5. Also, slight ST elevations in I and aVL. ST depressions in leads II, III, and aVF. His chest x-ray performed in the Emergency Department revealed congestive heart failure. Alveolar and interstitial edema. The patient was promptly evaluated in the Emergency Department by Dr. Tan. He was evaluated by me after I arrived to the Emergency Department. It was recommended to him that he undergo emergency cardiac catheterization. The procedure, risk, benefits and alternatives were discussed with him. He readily agreed to undergo the procedure. The patient was brought to emergently to the cardiac catheterization lab. The catheterization was performed via a 6-Macedonian sheath in the right radial artery. Because of hypertension, he was started on Hitesh-Synephrine. Hypertension persisted and he was then started on additional pressor support with dopamine. Because of the heart failure noted on his chest x-ray and worsening oxygen saturations, he was given intravenous furosemide. Emergency angiography revealed a total proximal LAD occlusion. KOBI 0 flow. Collateral flow from the left circumflex to the distal RCA and its branches. PTCA was then performed to the LAD. KOBI 3 flow was established. The patient then underwent deployment of a 2.5 x 26 mm Resolute drug-eluting stent in the proximal LAD. After flow had been reestablished in the LAD, there was evidence of a 75% mid LAD stenosis. This received PTCA. A second Resolute 2.5 x 22 mm stent was deployed in an overlapping fashion with the first and into the mid LAD covering this site. The overlap site of the 2 stents was postdilated with the stent delivery balloon. The residual stenosis at the stent sites were 0-10%. There was no evidence of dissection, thrombus, perforation, or distal embolic event. KOBI 3 flow into the distal LAD. Despite high-flow oxygen via a face mask, the patient had progressively worsening oxygen saturation. Because of this, he was endotracheally intubated by Dr. Art Mackey of the Emergency Department. The intubation was after deployment of the first stent. The second stent was deployed following intubation. Right coronary angiography was then performed and revealed a total mid RCA occlusion. Limited LV angiogram was performed with a hand injection of contrast dye in the 30-degree GILLETTE projection. This revealed global hypokinesis. Estimated LV ejection fraction 25-30%. During the procedure, the patient received intravenous heparin and Integrilin. Therapeutic activated clotting times were documented. Arterial blood gases performed following intubation revealed initially pH 7.17, pCO2 of 38, and pO2 of 72. He received 1 amp of sodium bicarbonate. His ventilator rate was increased. A repeat pH was 7.16 with a pCO2 of 40 and pO2 of 51. He received an additional amp of sodium bicarbonate at that time. After being admitted to the intensive care unit, a repeat arterial blood gas was performed; pH 7.282, pCO2 of 40.1, pO2 of 59. At the time of intubation, the patient received succinylcholine and etomidate. On admission to the intensive care unit, he was placed on an intravenous Versed trip. In the ICU, his pressures were improving and his dopamine and Hitesh-Synephrine doses were being decreased. He had a Hansen catheter inserted in the foundry laborer coreroom. With the intravenous furosemide administered in the beginning of the catheterization procedure, he had a good diuresis. At the time of this dictation, his oxygen saturations have improved to the low to mid 90s. PAST MEDICAL HISTORY: 1. Hypertension. 2. Dyslipidemia. 3. Gastroesophageal reflux disease. FAMILY HISTORY: His father at age 51 from myocardial infarction. SOCIAL HISTORY: The patient is and lives with his . He stopped smoking cigarettes 35 years ago. ALLERGIES: No known drug allergies. MEDICATIONS AT THE TIME OF ADMISSION: Lisinopril 20 mg daily and omeprazole 20 mg daily. REVIEW OF SYSTEMS: Negative other than for the above symptoms. ADDENDUM: In the foundry laborer coreroom prior to the procedure, the patient developed recurrent nausea for which intravenous Zofran was administered. No further complaints of nausea. PHYSICAL EXAMINATION: GENERAL: In the Emergency Department, the patient was examined by me. He was in no acute distress. He did appear ill. He had poor coloration. EYES: Pupils equal and round. Anicteric. Conjunctivae normal. No xanthelasma. NECK: No jugular venous distention. Carotids 2/2 bilaterally. Normal upstroke. No bruits. LUNGS: In the Emergency Department, normal respiratory effort. No rales or wheezes were heard. HEART: Regular rate and rhythm. S1, S2 normal. No S3 or S4. No murmur or rub was heard. ABDOMEN: Soft. Normal bowel sounds. Nontender. No palpable masses or organomegaly. EXTREMITIES: No pretibial edema. PULSES: Radial and dorsalis pedis pulses were palpable. NEUROLOGICAL: Alert and oriented x3. Motor grossly intact. PSYCHIATRIC: Affect normal. His initial vital signs in the Emergency Department revealed a pulse of 90, blood pressure 108/81, pulse oximetry of 87% on room air. Electrocardiogram and chest x-ray as documented above. Initial CBC with WBC 13.97, hemoglobin 16.7, hematocrit 47.7, platelet count 278. INR 1.0. PTT 26.9. Metabolic profile with sodium 141, potassium 4.2, chloride 114, carbon dioxide 18, BUN 22, creatinine 1.20, random glucose 141. Initial troponin I 0.669. CK-MB 11.2. Magnesium 1.8. ASSESSMENT: 1. Acute anterior myocardial infarction. Total proximal LAD occlusion on emergency cardiac catheterization. Subsequent successful intervention to the LAD. KOBI 3 flow at completion of intervention. Deployment of 2 drug-eluting stents from proximal to mid LAD. 2. Total mid RCA occlusion. Left to right collateral flow. This appears to be a chronic total occlusion. Mild atherosclerotic disease in the left circumflex. 3. Severe left ventricular systolic dysfunction. 4. Pulmonary edema and cardiogenic shock secondary to acute anterior myocardial infarction. His left ventricular end diastolic pressure was elevated at 30 mmHg post-PCI. 5. His oxygenation is improving after diuresis. His blood pressure and pH are improving. 6. Coronary artery disease risk factors include hypertension, dyslipidemia, prior smoking history, and family history of premature coronary artery disease. 7. No coronary complications with the PCI procedure. PLAN: 1. Remain on mechanical ventilation until extubation criteria is met. 2. Continue intravenous pressors. Titrate dose downward as tolerated. Maintain mean arterial pressure greater than or equal to 60 mmHg. 3. Intravenous Integrilin. 4. Aspirin and clopidogrel. 5. Atorvastatin 80 mg daily. 6. At this time, we will hold off on beta-mihaela and JORGE LUIS inhibitor therapy. This is secondary to his hypotension requiring pressor support. Once he is hemodynamically stable, can reinstitute JORGE LUIS inhibitor therapy and institute beta-mihaela therapy. 7. Echocardiogram to further assess LV systolic function and to assess for any mechanical complications. This in light of the hypotension. 8. Serial electrocardiograms and cardiac enzymes. 9. Serial metabolic profiles and CBCs. 10. Check lactic acid level. 11. Lipid profile and hemoglobin A1c. 12. Erp Analyst consultation with Dr. Chris Morelos. 13. The patient was [facility]. His case was discussed by me with Dr. Rossi. 14. The patient's case was also discussed by me Dr. Morelos. They will be managing the patient's ventilator. 15. Intravenous sedation with Versed. 16. The patient's clinical status and the events of the cardiac catheterization were extensively discussed by me with his and their daughter. 60 minutes of critical care time provided by me in management of this patient independent of the procedure. MELISSA
[2016-11-15] MEDS: CLOPIDOGREL BISULFATE 75 MG TAB PO SCH (09:00)
[2016-11-15] MEDS ORDERED: LANSOPRAZOLE SOLUTAB 30 MG PO SCH (09:00)
[2016-11-15] MEDS: ATORVASTATIN 40 MG TAB PO SCH (09:00)
[2016-11-15] MEDS: ASPIRIN 81 MG ECTAB PO SCH (09:00)
[2016-11-15] MEDS ORDERED: VASOPRESSIN INJ 50 UNITS in SODIUM CHLORIDE 0.9% 500ML 500 ML IV PRN (09:05)
[2016-11-15] MEDS ORDERED: PIPERACILL/TAZOBAC IV 4.5 GM in DEXTROSE 5% 100ML IV ONE (09:15)
[2016-11-15] MEDS ORDERED: PIPERACILL/TAZOBAC CONSULT ACTIVE PRN (09:15)
[2016-11-15] MEDS ORDERED: VANCOMYCIN CONSULT ACTIVE PRN (09:15)
[2016-11-15] MEDS ORDERED: FENTANYL CITRATE INJ 50 MCG/1 ML 2 ML VIAL IV STA (09:29)
[2016-11-15] MEDS ORDERED: VANCOMYCIN INJ 2,000 MG in SODIUM CHLORIDE 0.9% 500ML 500 ML IV ONE (09:30)
[2016-11-15] MEDS ORDERED: VECURONIUM BROMIDE 10 MG VIAL IV STA (09:30)
[2016-11-15] MEDS ORDERED: FENTANYL CITRATE 1250MCG/250ML NSS ONE (09:34)
[2016-11-15] MEDS ORDERED: SILVER NITR/POTASSIUM NITRATE 10 APPLICATOR PACK EXT PRN (10:30)
[2016-11-15] MEDS ORDERED: SODIUM BICARBONATE 8.4% INJ 75 MEQ in SODIUM CHLORIDE 0.45% 1000ML 1,000 ML IV SCH (10:30)
[2016-11-15] MEDS: DOPamine 400MG / D5W 400 MG IV PRN ×2 (11:27→17:56)
[2016-11-15 11:39] LABS: ISTAT ARTERIAL BLOOD GAS HCO3 18 meq/L (19-24); ISTAT ARTERIAL BLOOD GAS PCO2 36 mmHg (35-46); ISTAT ARTERIAL BLOOD GAS PO2 96 mmHg (80-95); ISTAT CARBON DIOXIDE 19 mEq/l (24-31); ISTAT DELIVERY SYSTEM Ventilator; ISTAT FIO2 90 %; ISTAT PEEP 10; ISTAT RATE 24; ISTAT SITE Art Line
--- NOTE | 2016-11-15 11:44 | DIAGNOSTIC IMAGING REPORT ---
CHEST ONE VIEW PORTABLE HISTORY: Pa catheter placement. COMPARISON: Chest 11/15/2016. FINDINGS: Endotracheal tube terminates 3.5 cm and the jennifer. Right subclavian central venous catheter terminates at the SVC. No pneumothorax. Bilateral perihilar hazy airspace opacities are again noted. Small right pleural effusion. The heart is normal in size. Suspect a trace left pleural effusion. Interval placement of a right jugular Dolton-Henry catheter. The tip overlies the left side of the T8 vertebral body and likely resides within the proximal right main pulmonary artery. IMPRESSION: 1. Interval placement of a right jugular Dolton-Henry catheter. The tip likely resides within the proximal right main pulmonary artery. 2. Remaining lines/tubes are in good position. 3. No change in the bilateral perihilar hazy airspace opacities and small right pleural effusion. This is concerning for pulmonary edema. Electronically signed by: Ken Ray M.D. 11/15/2016 11:42 AM Dictated Date/Time: 11/15/2016 11:37 AM
[2016-11-15 11:58] LABS: ISTAT ARTERIAL BLOOD GAS HCO3 20 meq/L (19-24); ISTAT ARTERIAL BLOOD GAS PCO2 41 mmHg (35-46); ISTAT ARTERIAL BLOOD GAS PO2 37 mmHg (80-95); ISTAT ARTERIAL BLOOD GAS pH 7.28 (7.35-7.45); ISTAT CARBON DIOXIDE 21 mEq/l (24-31); ISTAT DELIVERY SYSTEM Ventilator; ISTAT FIO2 90 %; ISTAT PEEP 10; ISTAT RATE 24
[2016-11-15] MEDS ORDERED: PIPERACILL/TAZOBAC IV 3.375 GM in DEXTROSE 5% 100ML 100 ML IV SCH (12:00)
[2016-11-15] MEDS ORDERED: DOBUTamine / D5W 500 MG IV SCH (12:15)
[2016-11-15] MEDS ORDERED: DOBUTamine 500MG / 250ML D5W ONE (12:17)
[2016-11-15] MEDS: PANTOprazole INJ 40 MG in SYRINGE 0 ML IV SCH ×2 (12:21→20:51)
[2016-11-15] MEDS ORDERED: INSULIN IV INFUSION PROTOCOL SCH (12:23)
[2016-11-15 13:02] LABS: CKMB/CK RATIO 11.2 (0-3.0)
[2016-11-15 13:30] LABS: HEMATOCRIT 46.6 % (42-52); MEAN CELL VOLUME 88.4 fL (80-100); MEAN CORPUSCULAR HEMOGLOBIN 31.5 pg (25-34); MEAN CORPUSCULAR HGB CONC 35.6 g/dl (32-36); MEAN PLATELET VOLUME 11.2 fL (7.4-10.4); PLATELET COUNT 276 K/uL (130-400); RED BLOOD COUNT 5.27 M/uL (4.7-6.1)
[2016-11-15 13:59] LABS: BUN/CREATININE RATIO 14.1 (10-20); CALCIUM 6.9 mg/dl (8.5-10.1); CREATININE 1.4 mg/dl (0.60-1.40); MAGNESIUM 1.5 mg/dl (1.8-2.4); POTASSIUM 3.5 mmol/L (3.5-5.1)
[2016-11-15 14:15] LABS: PHOSPHORUS 1.2 mg/dl (2.5-4.9)
[2016-11-15] MEDS: ASCORBIC ACID INJ 1,500 MG in NSS 100 ML IV SCH ×2 (14:51→20:51)
[2016-11-15] MEDS: HYDROCORTISONE IV 50 MG in SYRINGE 0 ML IV SCH ×2 (14:51→20:51)
[2016-11-15] MEDS: THIAMINE HCL INJ 200 MG in NSS 50ML IV SCH (14:51)
[2016-11-15] MEDS ORDERED: VECURONIUM BROMIDE 10 MG VIAL IV ONE (14:55)
[2016-11-15] MEDS ORDERED: SUCCINYLCHOLINE CHLORIDE 20 MG/ML 10 ML VIAL IV ONE (14:55)
[2016-11-15] MEDS ORDERED: ETOMIDATE 2 MG/ML 20 ML VIAL IV ONE (14:55)
[2016-11-15] MEDS ORDERED: SODIUM CHLORIDE 0.9% INJ 10 ML VIAL IV ONE (14:55)
[2016-11-15] MEDS ORDERED: POTASSIUM PHOSPHATE INJ 30 MMOL in SODIUM CHLORIDE 0.9% 500ML 500 ML IV ONE (15:00)
--- NOTE | 2016-11-15 15:03 | Pharmacy Progress Note ---
Pharmacy Antibiotic Consult Date of Service: Nov 15, 2016. Pharmacy Dosing Scope Pharmacy is consulted to initiate Vancomycin IV dosing therapy, order appropriate labs and adjust drug dose/frequency. Subjective The patient is a 65 year old male admitted on Nov 15, 2016 at 03:32. Objective Height (Feet): 5 Height (Inches): 8.00 Weight (Kilograms): 78.700 Lab Results (24hrs): Test 11/15/16 01:29 11/15/16 01:36 11/15/16 01:38 11/15/16 01:59 Bedside Troponin I 0.440 ng/ml (0-0.045) Bedside Hemoglobin 17.0 g/dl (14.0-18.0) Bedside Hematocrit 50 % (42-52) Bedside Sodium 142 mEq/L (135-144) Bedside Potassium 4.4 mEq/L (3.3-5.0) Bedside Chloride 108 mEq/L (101-112) Bedside Total CO2 23 mEq/l (24-31) Bedside Blood Urea Nitrogen 26 mg/dl (7-18) Bedside Creatinine 1.3 mg/dl (0.6-1.3) Bedside Glucose (other) 114 mg/dl (70-99) Bedside Ionized Calcium (Boy) 1.22 mmol/l (1.12-1.32) Immature Granulocyte % (Auto) 0.4 % White Blood Count 13.97 K/uL (4.8-10.8) Red Blood Count 5.25 M/uL (4.7-6.1) Hemoglobin 16.7 g/dL (14.0-18.0) Hematocrit 47.7 % (42-52) Mean Corpuscular Volume 90.9 fL (80-100) Mean Corpuscular Hemoglobin 31.8 pg (25-34) Mean Corpuscular Hemoglobin Concent 35.0 g/dl (32-36) Platelet Count 278 K/uL (130-400) Mean Platelet Volume 11.8 fL (7.4-10.4) Neutrophils (%) (Auto) 54.2 % Lymphocytes (%) (Auto) 35.9 % Monocytes (%) (Auto) 6.9 % Eosinophils (%) (Auto) 2.3 % Basophils (%) (Auto) 0.3 % Neutrophils # (Auto) 7.57 K/uL (1.4-6.5) Lymphocytes # (Auto) 5.02 K/uL (1.2-3.4) Monocytes # (Auto) 0.97 K/uL (0.11-0.59) Eosinophils # (Auto) 0.32 K/uL (0-0.5) Basophils # (Auto) 0.04 K/uL (0-0.2) Immature Granulocyte # (Auto) 0.05 K/uL (0.00-0.02) Prothrombin Time 10.3 SECONDS (9.0-12.0) Prothromb Time International Ratio 1.0 (0.9-1.1) Activated Partial Thromboplast Time 26.9 SECONDS (21.0-31.0) Partial Thromboplastin Ratio 1.0 Total Bilirubin 0.3 mg/dl (0.2-1) Direct Bilirubin < 0.1 mg/dl (0-0.2) Aspartate Amino Transf (AST/SGOT) 32 U/L (15-37) Alanine Aminotransferase (ALT/SGPT) 38 U/L (12-78) Alkaline Phosphatase 73 U/L (45-117) Total Protein 7.2 gm/dl (6.4-8.2) Albumin 3.4 gm/dl (3.4-5.0) Globulin 3.8 gm/dl (2.5-4.0) Albumin/Globulin Ratio 0.9 (0.9-2) Kaolin Activated Coagulation Time 263 SECONDS (94-140) Test 11/15/16 02:43 11/15/16 04:45 11/15/16 04:55 11/15/16 06:30 Kaolin Activated Coagulation Time 379 SECONDS (94-140) White Blood Count 33.20 K/uL (4.8-10.8) Red Blood Count 5.53 M/uL (4.7-6.1) Hemoglobin 17.9 g/dL (14.0-18.0) Hematocrit 50.3 % (42-52) Mean Corpuscular Volume 91.0 fL (80-100) Mean Corpuscular Hemoglobin 32.4 pg (25-34) Mean Corpuscular Hemoglobin Concent 35.6 g/dl (32-36) Platelet Count 337 K/uL (130-400) Mean Platelet Volume 12.3 fL (7.4-10.4) Neutrophils (%) (Auto) 89.0 % Lymphocytes (%) (Auto) 8.0 % Monocytes (%) (Auto) 2.2 % Eosinophils (%) (Auto) 0.1 % Basophils (%) (Auto) 0.1 % Neutrophils # (Auto) 29.57 K/uL (1.4-6.5) Lymphocytes # (Auto) 2.64 K/uL (1.2-3.4) Monocytes # (Auto) 0.73 K/uL (0.11-0.59) Eosinophils # (Auto) 0.04 K/uL (0-0.5) Basophils # (Auto) 0.03 K/uL (0-0.2) RDW Standard Deviation 45.0 fL (36.4-46.3) RDW Coefficient of Variation 13.5 % (11.5-14.5) Immature Granulocyte % (Auto) 0.6 % Immature Granulocyte # (Auto) 0.19 K/uL (0.00-0.02) Sodium Level 134 mmol/L (136-145) Potassium Level 4.0 mmol/L (3.5-5.1) Chloride Level 105 mmol/L (98-107) Carbon Dioxide Level 20 mmol/L (21-32) Anion Gap 9.0 mmol/L (3-11) Blood Urea Nitrogen 23 mg/dl (7-18) Creatinine 1.40 mg/dl (0.60-1.40) Est Creatinine Clear Calc Drug Dose 50.2 ml/min Estimated GFR () 60.3 Estimated GFR (Non- 52.0 BUN/Creatinine Ratio 16.5 (10-20) Random Glucose 425 mg/dl (70-99) Estimated Average Glucose 105 mg/dl Hemoglobin A1c 5.3 % (4.5-5.6) Lactic Acid Level 2.6 mmol/L (0.4-2.0) Calcium Level 7.7 mg/dl (8.5-10.1) Magnesium Level 1.6 mg/dl (1.8-2.4) Triglycerides Level 209 mg/dl (0-150) Cholesterol Level 238 mg/dl (0-200) HDL Cholesterol 35 mg/dl LDL Cholesterol Direct 168 mg/dl LDL Cholesterol, Calculated mg/dl VLDL Cholesterol, Calculated 42 mg/dl Cholesterol/HDL Ratio 6.8 Chemistry Specimen Hemolysis Blood Gas Minute Ventilation 12.1 Blood Gas Tidal Volume 600 Total Creatine Kinase 8409 U/L (39-308) Creatine Kinase MB 729.1 ng/ml (0.5-3.6) Creatine Kinase MB Ratio 8.7 (0-3.0) Troponin I > 200.000 ng/ml Beta-Hydroxybutyric Acid 1.51 mg/dL (0.2-2.81) Test 11/15/16 11:28 11/15/16 11:41 11/15/16 11:53 11/15/16 12:37 Blood Gas Sample Site Art Line Art Line Bedside Blood Gas pH (LAB) 7.30 (7.35-7.45) 7.28 (7.35-7.45) Bedside Blood Gas pCO2 (LAB) 36 mmHg (35-46) 41 mmHg (35-46) Bedside Blood Gas pO2 (LAB) 96 mmHg (80-95) 37 mmHg (80-95) Bedside Blood Gas HCO3 (LAB) 18 meq/L (19-24) 20 meq/L (19-24) Bedside Blood Gas Total CO2 19 mEq/l (24-31) 21 mEq/l (24-31) Bedside Blood Gas Base Excess (LAB) -9.0 meq/L (-9-1.8) -7.0 meq/L (-9-1.8) Bedside Blood Gas O2 Saturation 97.0 % (90-95) 64.0 % (90-95) Gold Test NA NA Oxygen Delivery Device Ventilator Ventilator Bedside Oxygen Rate (breaths/min) 24 24 Bedside FiO2 90 % 90 % Blood Gas PEEP 10 10 Total Creatine Kinase 6104 U/L (39-308) Creatine Kinase MB 681.9 ng/ml (0.5-3.6) Creatine Kinase MB Ratio 11.2 (0-3.0) Troponin I > 200.000 ng/ml Lactic Acid Level 2.9 mmol/L (0.4-2.0) Test 11/15/16 12:39 11/15/16 13:22 Bedside Glucose 234 mg/dl (70-99) White Blood Count 20.60 K/uL (4.8-10.8) Red Blood Count 5.27 M/uL (4.7-6.1) Hemoglobin 16.6 g/dL (14.0-18.0) Hematocrit 46.6 % (42-52) Mean Corpuscular Volume 88.4 fL (80-100) Mean Corpuscular Hemoglobin 31.5 pg (25-34) Mean Corpuscular Hemoglobin Concent 35.6 g/dl (32-36) RDW Standard Deviation 41.7 fL (36.4-46.3) RDW Coefficient of Variation 13.0 % (11.5-14.5) Platelet Count 276 K/uL (130-400) Mean Platelet Volume 11.2 fL (7.4-10.4) Nucleated RBC Absolute Count (auto) 0.03 K/uL (0-0) Nucleated Red Blood Cells % 0.1 % Sodium Level 134 mmol/L (136-145) Potassium Level 3.5 mmol/L (3.5-5.1) Chloride Level 102 mmol/L (98-107) Carbon Dioxide Level 23 mmol/L (21-32) Anion Gap 9.0 mmol/L (3-11) Blood Urea Nitrogen 20 mg/dl (7-18) Creatinine 1.40 mg/dl (0.60-1.40) Est Creatinine Clear Calc Drug Dose 50.2 ml/min Estimated GFR () 60.3 Estimated GFR (Non- 52.0 BUN/Creatinine Ratio 14.1 (10-20) Random Glucose 205 mg/dl (70-99) Calcium Level 6.9 mg/dl (8.5-10.1) Phosphorus Level 1.2 mg/dl (2.5-4.9) Magnesium Level 1.5 mg/dl (1.8-2.4) Micro Results: Item Value Date Time MRSA DNA Surveillance Screen - Final Complete 11/15/16 0355 Nasal Specimen Negative for MRSA by DNA Probe Assessment & Plan ASSESSMENT: * Mr Mathew is a 65yo male admitted with chest pain. Found to have a STEMI and taken to microbiological lab technician last night for stenting. * WBC 33.2, Lactic acid 2.6, hypotension requiring pressor support, mechanical ventilation * Broad-spectrum antibiotics started empirically this morning. PLAN: Vancomycin: * Loading dose: Vancomycin 2000 mg IV X 1 dose, then * Vancomycin 1250 mg IV every 18 hours. * Goal trough level estimate: between 15 - 20 mcg/mL. * Will check a vanc level prior to the ~3rd maintenance dose, but will wait to order until renal function is evaluated tomorrow, as dosing interval may require adjustment. Zosyn: * Zosyn 4.5gm IV x1 dose over 30 min, then * Zosyn 4.5gm IV q8h, extended 4-hr infusion * More aggressive regimen selected for critically ill pt Pharmacy will continue to follow and will adjust dose/frequency as necessary. Thank you
[2016-11-15] MEDS ORDERED: NURSING VERBAL MED ORDER ONE ×5 (15:15→21:45)
[2016-11-15 15:49] LABS: ISTAT SITE Art Line
[2016-11-15 15:50] LABS: ISTAT SAMPLE TYPE MIXED VENOUS
--- NOTE | 2016-11-15 16:16 | ECHOCARDIOGRAM REPORT ---
*NOTICE TO RECEIVING DEMOCRAT AGENCY This information is strictly Confidential and protected under [place] law. [place] law prohibits you from making any further disclosure of this information unless further disclosure is expressly permitted by the written consent of the person to whom it pertains or is authorized by law. A general authorization for the release of medical or other information is not sufficient for this purpose. Hospital accepts no responsibility if the information is made available to any other person, INCLUDING THE PATIENT. Interpretation Summary * Name: DANII HEALY Study Date: 11/15/2016 04:35 AM BP: 135/62 mmHg * Patient Location: E110 HR: 115 * : 1950 (M/d/yyyy) Gender: Male Height: 68 in * Age: 65 yrs Ethnicity: CA Weight: 173 lb * Ordering Physician: Carter Reyez MD, FACC * Referring Physician: Carter Reyez MD, FACC * Performed By: Ana Luisa Leiva RCS * * Reason For Study: HEART ALERT / CARDIOGENIC SHOCK * BSA: 1.9 m2 * Moderate left ventricular systolic dysfunction. * Inferior hypoinesis. Anterior,anteroseptal, apical hypokineis to akinesis. * Mild concentric left ventricular hypertrophy. * Borderline left atrial dilatation. * Mild tricuspid regurgitation. * Mildly elevated estimated right ventricular systolic pressure. Procedure Details * The study was technically limited. * The study was technically difficult. * The study was technically difficult, but visualization was adequate with the administration of Definity ultrasound contrast. * Limited views were obtained. * There were technical limitations due to patient'ssupine positioning while on mechanical ventilation * A contrast injection of Definity was performed to improve assessment of LV function. * Contrast was injected into an intravenous site in the left arm. * One vial of Definity ultrasound contrast was diluted in normal saline to a total volume of 10 ml. A total of '2' ml of solution was administered during imaging. * Lot # [id number] of Definity utilized for procedure. * Expiration date JAN 24. * The attending nurse who injected the contrast agent was CYN MCDOWELL, RN. Left Ventricle * The left ventricle is normal in size. * There is no ventricular septal defect visualized. * There is mild concentric left ventricular hypertrophy. * Left ventricular systolic function is moderately reduced. * Ejection Fraction = 35-40%. * Inferior hypokinesis.Septal,anteroseptal, and anterior hypokinesis to akinesis. Right Ventricle * The right ventricle is normal in size and function. Atria * Borderline left atrial enlargement. * Right atrium not well visualized. Mitral Valve * There is mild mitral annular calcification. * There is no mitral valve stenosis. * Significant mitral regurgitation is absent. Tricuspid Valve * The tricuspid valve is not well visualized. * There is no tricuspid stenosis. * There is mild tricuspid regurgitation. * Right ventricular systolic pressure is elevated at 30-40mmHg. Aortic Valve * The aortic valve is not well visualized. * There is no significant aortic regurgitation. Pulmonic Valve * The pulmonic valve is not well visualized. Great Vessels * The aortic root is normal size. Pericardium/Pleural * There is no pericardial effusion. MMode 2D Measurements and Calculations IVSd 1.4 cm IVSs 1.8 cm LVIDd 3.9 cm LVIDs 3.2 cm LVPWd 1.6 cm LVPWs 1.1 cm IVS/LVPW 0.85 FS 19.0 % EDV(Teich) 67.6 ml ESV(Teich) 40.7 ml EF(Teich) 39.7 % EDV(cubed) 61.2 ml ESV(cubed) 32.6 ml EF(cubed) 46.8 % % IVS thick 32.5 % % LVPW thick -28.95 % LV mass(C)d 227.0 grams LV mass(C)dI 118.1 grams/m\S\2 LV mass(C)s 168.5 grams LV mass(C)sI 87.7 grams/m\S\2 SV(Teich) 26.9 ml SI(Teich) 14.0 ml/m\S\2 SV(cubed) 28.7 ml SI(cubed) 14.9 ml/m\S\2 Ao root diam 3.6 cm Ao root area 10.2 cm\S\2 LA dimension 4.0 cm LA/Ao 1.1 LVOT diam 2.0 cm LVOT area 3.2 cm\S\2 Doppler Measurements and Calculations Ao V2 max 107.9 cm/sec Ao max PG 4.7 mmHg Ao max PG (full) 2.[address](V,A) 2.0 cm\S\2 LANE(V,D) 2.0 cm\S\2 LV V1 max PG 1.8 mmHg LV V1 max 67.9 cm/sec TR max silvia 260.7 cm/sec
[2016-11-15] MEDS: INSULIN REGULAR 250 UNITS in SODIUM CHLORIDE 0.9% 250ML 250 ML IV SCH (16:19)
--- NOTE | 2016-11-15 16:35 | Critical Care Consultation ---
Critical Care Consultation Date of Consultation: Nov 15, 2016. Attending Physician: Eugenio Bain M.D. Reason for Consultation: Cardiogenic shock, acute resp failure, distributive shock. History of Present Illness this is 65 yo , m, presented to the hospital with increasing sob and chest pain for the past 24 hrs, on arrival he was found to have STEMI in the anterior leads , he was taken by Dr. Reyez to the [facility] where he he underwent stent placement times 2 in the LAD, the pt was in severe resp distress requiring intubation, his hemodynamic status required starting high doses of pressors and inotropic agent with dopamine . he was brought to the ICU on Hitesh and dopa drip at high doses to barely maintain his BP at 87/38. tachycardic, tachypneic, O2 sat is variable but difficult to obtain. the pt underwent PA catheter placement and A line with CVL placement, showing distributive shock with poor cardiac reserve. over the day the pt started on dobutamine, levophed, in addition, changed to pc mode, marginal improvement in oxygenation, echo done at the bed side showed inferior wall hypokinesis, EF 40%, the views however, obscured by the hyperinflated lungs. started on versed and fentanyl for sedation and given a single dose of vecuronium, HP showed CO in the range of 3-4 and PAOP of 8 started on IVF with 1/2 NS and Bicarb, family were updated many times during the day. trop expectedly elevated, Integrilin continued, post cath meds continued. ROS was never obtainable given his shock state. Past Medical/Surgical History CAD, COPD, active smoker. Family History Heart disease Social History Smoking Status: Former Smoker Allergies Coded Allergies: No Known Allergies (Unverified , NONE, 11/15/16) Home Medications Scheduled Lisinopril (Prinivil), 20 MG PO DAILY Omeprazole (Prilosec), 20 MG PO DAILY Current Inpatient Medications Current Inpatient Medications Medications (Trade) Dose Ordered Sig/Guillaume Route Start Time Stop Time Status Last Admin Dose Admin Atropine Sulfate (Atropine Sulfate 0.1MG/Ml Inj) 0.5 mg ONE PRN IV 11/15/16 04:00 12/15/16 03:59 Ondansetron HCl 8 mg/Dextrose 54 ml @ 200 mls/hr Q6H PRN IV 11/15/16 04:00 12/15/16 03:59 Aspirin (Ecotrin Tab) 81 mg QAM PO 11/15/16 09:00 12/15/16 08:59 Clopidogrel Bisulfate (plAVix TAB) 75 mg QAM PO 11/15/16 09:00 12/15/16 08:59 Atorvastatin Calcium (Lipitor Tab) 80 mg QAM PO 11/15/16 09:00 12/15/16 08:59 Fentanyl Citrate (Fentanyl Inj) 50 mcg Q1H PRN IV 11/15/16 04:00 11/29/16 03:59 11/15/16 05:02 50 MCG Dopamine HCl/ Dextrose 0 ml @ 0 mls/hr Q0M PRN IV 11/15/16 03:52 12/15/16 03:51 11/15/16 11:27 43.9 MLS/HR Midazolam HCl (Versed Inj) 1 mg Q1HWA PRN IV 11/15/16 04:00 12/15/16 03:59 Midazolam HCl 250 ml @ 0 mls/hr Q0M PRN IV 11/15/16 03:52 12/15/16 03:51 Glucose (Glucose 40% Gel) 15-30 GRAMS 15 GRAMS... UD PRN PO 11/15/16 06:30 12/15/16 06:29 Glucose (Glucose Chew Tab) 4-8 Tablets 4 Tabl... UD PRN PO 11/15/16 06:30 12/15/16 06:29 Dextrose (Dextrose 50% 50ML Syringe) 25-50ML OF 50% DW IV FOR... UD PRN IV 11/15/16 06:30 12/15/16 06:29 Glucagon (Glucagon Inj) 1 mg UD PRN SQ 11/15/16 06:30 12/15/16 06:29 Chlorhexidine Gluconate (Peridex Oral Soln) 15 ml DAILY MT 11/15/16 09:00 12/15/16 08:59 11/15/16 08:12 15 ML Artificial Tears (Artificial Tears) 1 drops DAILY OP 11/15/16 09:00 12/15/16 08:59 11/15/16 08:13 1 DROPS Pantoprazole Sodium 40 mg/ Syringe 10 ml @ 5 mls/min Q12H IV 11/15/16 09:00 12/15/16 08:59 11/15/16 12:21 5 MLS/MIN Phenylephrine HCl 40 mg/Dextrose 504 ml @ 0 mls/hr Q0M PRN IV 11/15/16 09:30 12/15/16 09:29 Vasopressin 50 units/Sodium Chloride 502.5 ml @ 0 mls/hr Q0M PRN IV 11/15/16 09:05 12/15/16 09:04 Piperacillin Sod/ Tazobactam Sod (Consult) 1 ea UD PRN N/A 11/15/16 09:15 12/15/16 09:14 Vancomycin HCl (Consult) 1 ea UD PRN N/A 11/15/16 09:15 12/15/16 09:14 Fentanyl Citrate 250 ml @ 0 mls/hr Q0M PRN IV 11/15/16 09:45 11/29/16 09:44 Norepinephrine Bitartrate 8 mg/ Dextrose 508 ml @ 0 mls/hr Q0M PRN IV 11/15/16 09:45 12/15/16 09:44 Silver Nitrate/ Potassium Nitrate (Silver Nitrate Applicators) 1 pkt UD PRN EXT 11/15/16 10:30 12/15/16 10:29 Sodium Bicarbonate 75 meq/Sodium Chloride 1,075 ml @ 100 mls/hr [id number] IV 11/15/16 10:30 12/15/16 10:29 11/15/16 11:27 100 MLS/HR Dobutamine HCl 250 ml @ 0 mls/hr Q0M IV 11/15/16 12:15 12/15/16 12:14 Piperacillin Sod/ Tazobactam Sod 4.5 gm/Dextrose 120 ml @ 30 mls/hr Q8H IV 11/15/16 18:00 11/22/16 17:59 Vancomycin HCl 1250 mg/Sodium Chloride 275 ml @ 125 mls/hr Q18H IV 11/16/16 06:00 11/23/16 05:59 Miscellaneous Information (Pending Order) 1 ea Q4H N/A 11/15/16 16:30 12/15/16 16:29 Insulin Human Regular 250 units/ Sodium Chloride 252.5 ml @ 0 mls/hr DAILY@1130 IV 11/15/16 13:45 12/15/16 13:44 Ascorbic Acid 1500 mg/Sodium Chloride 103 ml @ 206 mls/hr Q6H IV 11/15/16 14:30 11/19/16 08:59 11/15/16 14:51 206 MLS/HR Hydrocortisone Sodium Succinate 50 mg/Syringe 1 ml @ 4 mls/min Q6H IV 11/15/16 14:30 12/15/16 14:29 11/15/16 14:51 4 MLS/MIN Thiamine HCl 200 mg/Sodium Chloride 52 ml @ 210 mls/hr Q12H IV 11/15/16 14:30 12/15/16 14:29 11/15/16 14:51 210 MLS/HR Potassium Phosphate 30 mmol/ Sodium Chloride 510 ml @ 100 mls/hr TODAY@1500 ONCE IV 11/15/16 15:00 11/15/16 20:05 11/15/16 14:51 100 MLS/HR Review of Systems not obtainable. Physical Exam Date Time Temp Pulse Resp B/P (MAP) Pulse Ox O2 Delivery O2 Flow Rate FiO2 11/15/16 13:57 70 11/15/16 12:00 95 Mechanical Ventilator 70 11/15/16 12:00 70 11/15/16 10:45 90 11/15/16 09:32 90 11/15/16 08:00 97 Mechanical Ventilator 100 11/15/16 08:00 100 11/15/16 07:33 100 11/15/16 06:01 35.4 90 15 117/76 (90) 97 11/15/16 05:34 100 11/15/16 05:31 35.2 99 23 113/84 (94) 93 11/15/16 05:20 35.2 108 19 11/15/16 05:16 35.3 111 18 114/88 (97) 96 11/15/16 05:05 35.1 111 19 95 11/15/16 05:01 35.1 111 19 110/80 (90) 97 11/15/16 04:50 35.2 114 44 97 11/15/16 04:47 35.2 114 21 110/67 (81) 88 11/15/16 04:35 35.2 96 24 91 11/15/16 04:31 33.9 90 18 124/81 (95) 91 11/15/16 04:20 35.0 83 23 85 11/15/16 04:15 34.8 130 18 135/62 88 Mechanical Ventilator 100 11/15/16 04:15 34.4 87 24 109/78 (88) 87 11/15/16 04:05 35.1 103 24 90 11/15/16 04:01 35.1 112 16 119/86 (97) 88 11/15/16 03:50 35.3 148 85 11/15/16 03:49 35.3 134 127/92 (104) 91 11/15/16 03:35 100 11/15/16 03:30 133 20 118/84 (95) 85 Mechanical Ventilator 100 11/15/16 03:15 121 20 101/71 (81) 86 Mechanical Ventilator 100 11/15/16 02:30 100 11/15/16 01:34 82 23 99 11/15/16 01:31 107/82 11/15/16 01:30 116/89 11/15/16 01:29 93 17 90 11/15/16 01:26 90 24 108/81 87 Room Air 11/15/16 01:26 87 Room Air 11/15/16 01:26 89 11/15/16 01:25 Nasal Cannula 2.0 11/15/16 01:24 90 30 108/81 87 11/15/16 01:23 87 Room Air comatose, sedated , not in distress, lower lip hematoma, no JVP, lungs are distant crackles. abdomen is distended. no edema. neuro can not be checked, pupils however are reactive. General Appearance: no apparent distress Eyes: sclerae normal ENT: other Laboratory Results Last 24 Hours Test 11/15/16 01:28 11/15/16 01:29 11/15/16 01:36 11/15/16 01:38 Creatine Kinase MB Ratio Bedside Troponin I 0.440 ng/ml Bedside Hemoglobin 17.0 g/dl Bedside Hematocrit 50 % Bedside Sodium 142 mEq/L Bedside Potassium 4.4 mEq/L Bedside Chloride 108 mEq/L Bedside Total CO2 23 mEq/l Anion Gap 16.0 mmol/L 9.0 mmol/L Bedside Blood Urea Nitrogen 26 mg/dl Bedside Creatinine 1.3 mg/dl Bedside Glucose (other) 114 mg/dl Bedside Ionized Calcium (Boy) 1.22 mmol/l White Blood Count 13.97 K/uL Red Blood Count 5.25 M/uL Hemoglobin 16.7 g/dL Hematocrit 47.7 % Mean Corpuscular Volume 90.9 fL Mean Corpuscular Hemoglobin 31.8 pg Mean Corpuscular Hemoglobin Concent 35.0 g/dl Platelet Count 278 K/uL Mean Platelet Volume 11.8 fL Neutrophils (%) (Auto) 54.2 % Lymphocytes (%) (Auto) 35.9 % Monocytes (%) (Auto) 6.9 % Eosinophils (%) (Auto) 2.3 % Basophils (%) (Auto) 0.3 % Neutrophils # (Auto) 7.57 K/uL Lymphocytes # (Auto) 5.02 K/uL Monocytes # (Auto) 0.97 K/uL Eosinophils # (Auto) 0.32 K/uL Basophils # (Auto) 0.04 K/uL RDW Standard Deviation 44.9 fL RDW Coefficient of Variation 13.6 % Immature Granulocyte % (Auto) 0.4 % Immature Granulocyte # (Auto) 0.05 K/uL Prothrombin Time 10.3 SECONDS Prothromb Time International Ratio 1.0 Activated Partial Thromboplast Time 26.9 SECONDS Partial Thromboplastin Ratio 1.0 Sodium Level 141 mmol/L Potassium Level 4.2 mmol/L Chloride Level 114 mmol/L Carbon Dioxide Level 18 mmol/L Blood Urea Nitrogen 22 mg/dl Creatinine 1.20 mg/dl Est Creatinine Clear Calc Drug Dose 58.6 ml/min Estimated GFR () 72.6 Estimated GFR (Non- 62.6 BUN/Creatinine Ratio 18.3 Random Glucose 141 mg/dl Calcium Level 8.3 mg/dl Magnesium Level 1.8 mg/dl Total Bilirubin 0.3 mg/dl Direct Bilirubin < 0.1 mg/dl Aspartate Amino Transf (AST/SGOT) 32 U/L Alanine Aminotransferase (ALT/SGPT) 38 U/L Alkaline Phosphatase 73 U/L Creatine Kinase MB 11.2 ng/ml Troponin I 0.669 ng/ml Total Protein 7.2 gm/dl Albumin 3.4 gm/dl Globulin 3.8 gm/dl Albumin/Globulin Ratio 0.9 Test 11/15/16 01:59 11/15/16 02:42 11/15/16 02:43 11/15/16 03:01 Kaolin Activated Coagulation Time 263 SECONDS 379 SECONDS Bedside Blood Gas pH (LAB) 7.17 7.16 Bedside Blood Gas pCO2 (LAB) 38 mmHg 40 mmHg Bedside Blood Gas pO2 (LAB) 72 mmHg 51 mmHg Bedside Blood Gas HCO3 (LAB) 14 meq/L 14 meq/L Bedside Blood Gas Total CO2 15 mEq/l 16 mEq/l Bedside Blood Gas Base Excess (LAB) -15.0 meq/L -14.0 meq/L Bedside Blood Gas O2 Saturation 90.0 % 76.0 % Test 11/15/16 04:45 11/15/16 04:55 11/15/16 06:30 11/15/16 11:28 White Blood Count 33.20 K/uL Red Blood Count 5.53 M/uL Hemoglobin 17.9 g/dL Hematocrit 50.3 % Mean Corpuscular Volume 91.0 fL Mean Corpuscular Hemoglobin 32.4 pg Mean Corpuscular Hemoglobin Concent 35.6 g/dl Platelet Count 337 K/uL Mean Platelet Volume 12.3 fL Neutrophils (%) (Auto) 89.0 % Lymphocytes (%) (Auto) 8.0 % Monocytes (%) (Auto) 2.2 % Eosinophils (%) (Auto) 0.1 % Basophils (%) (Auto) 0.1 % Neutrophils # (Auto) 29.57 K/uL Lymphocytes # (Auto) 2.64 K/uL Monocytes # (Auto) 0.73 K/uL Eosinophils # (Auto) 0.04 K/uL Basophils # (Auto) 0.03 K/uL RDW Standard Deviation 45.0 fL RDW Coefficient of Variation 13.5 % Immature Granulocyte % (Auto) 0.6 % Immature Granulocyte # (Auto) 0.19 K/uL Sodium Level 134 mmol/L Potassium Level 4.0 mmol/L Chloride Level 105 mmol/L Carbon Dioxide Level 20 mmol/L Anion Gap 9.0 mmol/L Blood Urea Nitrogen 23 mg/dl Creatinine 1.40 mg/dl Est Creatinine Clear Calc Drug Dose 50.2 ml/min Estimated GFR () 60.3 Estimated GFR (Non- 52.0 BUN/Creatinine Ratio 16.5 Random Glucose 425 mg/dl Estimated Average Glucose 105 mg/dl Hemoglobin A1c 5.3 % Lactic Acid Level 2.6 mmol/L Calcium Level 7.7 mg/dl Magnesium Level 1.6 mg/dl Triglycerides Level 209 mg/dl Cholesterol Level 238 mg/dl HDL Cholesterol 35 mg/dl LDL Cholesterol Direct 168 mg/dl LDL Cholesterol, Calculated mg/dl VLDL Cholesterol, Calculated 42 mg/dl Cholesterol/HDL Ratio 6.8 Chemistry Specimen Hemolysis Blood Gas Sample Site L Radial Art Line Bedside Blood Gas pH (LAB) 7.28 7.30 Bedside Blood Gas pCO2 (LAB) 40 mmHg 36 mmHg Bedside Blood Gas pO2 (LAB) 59 mmHg 96 mmHg Bedside Blood Gas HCO3 (LAB) 19 meq/L 18 meq/L Bedside Blood Gas Total CO2 21 mEq/l 19 mEq/l Bedside Blood Gas Base Excess (LAB) -8.0 meq/L -9.0 meq/L Bedside Blood Gas O2 Saturation 90.0 % 97.0 % Gold Test Pass NA Oxygen Delivery Device Ventilator Ventilator Bedside Oxygen Rate (breaths/min) 16 24 Blood Gas Minute Ventilation 12.1 Bedside FiO2 100 % 90 % Blood Gas Tidal Volume 600 Blood Gas PEEP 10 10 Total Creatine Kinase 8409 U/L Creatine Kinase MB 729.1 ng/ml Creatine Kinase MB Ratio 8.7 Troponin I > 200.000 ng/ml Beta-Hydroxybutyric Acid 1.51 mg/dL Test 11/15/16 11:41 11/15/16 11:53 11/15/16 12:37 11/15/16 12:39 Blood Gas Specimen Type MIXED VENOUS Blood Gas Sample Site Art Line Bedside Blood Gas pH (LAB) 7.28 Bedside Blood Gas pCO2 (LAB) 41 mmHg Bedside Blood Gas pO2 (LAB) 37 mmHg Bedside Blood Gas HCO3 (LAB) 20 meq/L Bedside Blood Gas Total CO2 21 mEq/l Bedside Blood Gas Base Excess (LAB) -7.0 meq/L Bedside Blood Gas O2 Saturation 64.0 % Gold Test NA Oxygen Delivery Device Ventilator Bedside Oxygen Rate (breaths/min) 24 Bedside FiO2 90 % Blood Gas PEEP 10 Total Creatine Kinase 6104 U/L Creatine Kinase MB 681.9 ng/ml Creatine Kinase MB Ratio 11.2 Troponin I > 200.000 ng/ml Lactic Acid Level 2.9 mmol/L Bedside Glucose 234 mg/dl Test 11/15/16 13:22 11/15/16 15:01 White Blood Count 20.60 K/uL Red Blood Count 5.27 M/uL Hemoglobin 16.6 g/dL Hematocrit 46.6 % Mean Corpuscular Volume 88.4 fL Mean Corpuscular Hemoglobin 31.5 pg Mean Corpuscular Hemoglobin Concent 35.6 g/dl RDW Standard Deviation 41.7 fL RDW Coefficient of Variation 13.0 % Platelet Count 276 K/uL Mean Platelet Volume 11.2 fL Nucleated RBC Absolute Count (auto) 0.03 K/uL Nucleated Red Blood Cells % 0.1 % Sodium Level 134 mmol/L Potassium Level 3.5 mmol/L Chloride Level 102 mmol/L Carbon Dioxide Level 23 mmol/L Anion Gap 9.0 mmol/L Blood Urea Nitrogen 20 mg/dl Creatinine 1.40 mg/dl Est Creatinine Clear Calc Drug Dose 50.2 ml/min Estimated GFR () 60.3 Estimated GFR (Non- 52.0 BUN/Creatinine Ratio 14.1 Random Glucose 205 mg/dl Calcium Level 6.9 mg/dl Phosphorus Level 1.2 mg/dl Magnesium Level 1.5 mg/dl Bedside Glucose (other) 225 mg/dl Diagnostic Results CXR reviewed personally compatible with ARDS and pulm edema. all lines supported. Assessment & Plan 65 yo male unfortunate with the following medical issues includin- cardiogenic shock , converting to distributive shock with poor cardiac reserve given his recent STEMI. 2- STEMI, s/p stents of the LAD. 3- pulmonary edema both cardiogenic and non-cardiogenic with ARDS, PAOP is only 8 on the opening. 4- CHF secondary to above. 5- KIMBERLY,. 6- shocked liver. 7- possible superimposed ischemic bowel. resulted in septic physiology ( SVR is only 472). 8- acute resp failure secondary to the above. 9- COPD. 10- PAD. Plan: 1- placement of CVL right subclav. dictated separately. 2- PA catheter placed for HP . will obtain the profile every 12 hrs. 3- check CO every 4 hrs for 24 hrs. 4- start dobutamine at fixed dose of 5 mcg/kg/min. 5- start Vasopressin and HC for hormonal support. 6- start Vit c and Vit B1 for much needed Coenzyme A for the pressors to be effective. 7- correct the acidosis by starting 1/2 NS with 75 meq bicarb at 100 ml/hr then 75 ml/hr. 8- O2 ER checked showing 55% , Goaal 22% by increasing the CO. Hb and Sat are adequate for now. 9- Abg and MVO2 with each profile. 10- change Vent to PC mode. keep PEEP at 10. 11- continue Hitesh and Dopa , taper Hitesh if possible. 12- add Levo for BP control MAP > 65. 13- Insulin drip for Glucose control ( ranging >200) especially with hydrocortisone starting. 14- Vap bundle. 15- empiric coverage with Abx vanco and zosyn due to the nature of distributive shock. 16 I have performed bed side Echo showing EF 40% and hypokinetic inferior wall. compatible with the finding on the Cath report. 17- discussed in details on multiple occasions with dr. Reyez, highly appreciate his hard work on this case. 18- family updated periodically. 19-NPO. 20- even with suspicion for Ischemic bowel , noted on abdominal US done at the bed side , the pt has significant colonic edema, however, not a candidate for any surgical intervention obviously, will hold off on consult to surgery. 21- will check lactate. 22- recheck LFTs for monitoring of shocked liver. 23- CXR reviewed post PA catheter. 24- already on DVT prophylaxis. 25- PPI. 26- full code. 27- monitor I and O closely. 28- Dr. Reyez attempted transfer to [place] for ECMO, unfortunately, declined due to multi-sites bleeding. case discussed with the staff on rounds in details. CCT 90 min excluding all procedure time.
--- NOTE | 2016-11-15 16:38 | Procedure Note ---
Procedure Note Procedure Date Nov 15, 2016. Procedure Description Procedure Name: CVL placement. Procedure time out: side/site verified, patient ID confirmed Consent obtained: verbal Performed by: attending Indications: other Contraindications: none Description: CVL , indication, multiple drips, pt is on Integrilin drip. consent obtained from the agreed to the procedure risks and benefits explained in details. the pt is in supine position, right subclavian site, under strict sterile field , the line placed with seldinger tech, the skin prepped with chlorhexidine, injected with 5 ml of 1% lido, the line secured with two sutures at the 16 cm darwin, covered with surgical dressing. CXR with the tip of the catheter in the SVc and no PTX, no evidence of bleeding at the site either. Complications: none
--- NOTE | 2016-11-15 16:40 | Procedure Note ---
Procedure Note Procedure Date Nov 15, 2016. Procedure Description Procedure Name: a line placement. Procedure time out: side/site verified Consent obtained: verbal Performed by: attending Indications: diagnostic Contraindications: none Description: a line placed at the left radial artery, under strict sterile field , using US guidance. the line placed using seldinger tech, 20 gauge catheter inserted, noted non pulsatile artery but the a waves noted , secured with anchor suture, and covered with surgical dressing. no immediate complication. Complications: none
--- NOTE | 2016-11-15 16:47 | Procedure Note ---
Procedure Note Procedure Date Nov 15, 2016. Procedure Description Procedure Name: PA catheter placement. Procedure time out: side/site verified Consent obtained: written Performed by: attending Indications: diagnostic Contraindications: none Description: PA catheter. placed for hemodynamic monitoring in this pt who is in severe shock. the pt placed in supine position, anterior Right IJ site mapped with US guidance. under strict sterile field, the skin prepped with chlorhexidine and injected with 5 ml 1% lido, one attempt under the guidance of the US, the introducer placed with seldinger tech, flushed with NS and secured with one surgical suture. then all the dressing and the gloves changed to a new sterile ones, the [email or web address] Catheter double port used, all the ports connected to the transducer, flushed with saline, the balloon tip tested priorly, then the catheter inserted to 20 cm, then the balloon inflated and advanced towards the RV, PA, and PAOP. three attempts with body position change done. CVP 8, RV 41/3, PA 26/14, PAOP 10. CO was 4.2, CI 2.1, O2 ER 55%. SV and LVSW are pending. the catheter sheet covered over the catheter itself and secured, at 48 cm. CXR confirmed the tip at the right pulmonary artery. no PTX. Complications: none Patient tolerated procedure: well Post-procedure vital signs: reviewed and stable
[2016-11-15] MEDS: PIPERACILL/TAZOBAC IV 4.5 GM in DEXTROSE 5% 100ML IV SCH (17:57)
[2016-11-15] MEDS: ACETAMINOPHEN 1000 MG/100 ML IV IV PRN (18:02)
[2016-11-15] MEDS: NOREPINEPHRINE BIT INJ 8 MG in DEXTROSE 5% 500ML 500 ML IV PRN ×2 (18:43→20:40)
[2016-11-15] MEDS: PHENYLEPHRINE HCL INJ 40 MG in DEXTROSE 5% 500ML 500 ML IV PRN (19:30)
[2016-11-15 20:38] LABS: BUN/CREATININE RATIO 13.1 (10-20); CALCIUM 6.5 mg/dl (8.5-10.1); CREATININE 1.5 mg/dl (0.60-1.40); MAGNESIUM 1.3 mg/dl (1.8-2.4)
[2016-11-15] MEDS: MIDAZOLAM 125MG/250ML D5W 250 ML IV PRN (20:38)
[2016-11-15] MEDS: FENTANYL 1250MCG/250ML NSS IV PRN (20:39)
[2016-11-15 20:49] LABS: CKMB/CK RATIO 10.2 (0-3.0)
[2016-11-15 21:25] LABS: PHOSPHORUS 3.4 mg/dl (2.5-4.9); POTASSIUM 4.2 mmol/L (3.5-5.1)
[2016-11-16] VITALS (60 sets, daily range): BP systolic -2–123; BP diastolic -50–83; PULSE 90–126; TEMP 34–38; O2SAT 89–100
[2016-11-16 00:37] LABS: BUN/CREATININE RATIO 12.5 (10-20); CALCIUM 6.5 mg/dl (8.5-10.1); CREATININE 1.4 mg/dl (0.60-1.40); MAGNESIUM 1.6 mg/dl (1.8-2.4); PHOSPHORUS 2.5 mg/dl (2.5-4.9); POTASSIUM 3.6 mmol/L (3.5-5.1)
[2016-11-16 00:50] LABS: MIXED VEN BASE EXCESS -4.5 mEq/L (-7.7-1.9); MIXED VEN PH 7.32 (7.35-7.45)
[2016-11-16 00:58] LABS: ISTAT ARTERIAL BLOOD GAS HCO3 18 meq/L (19-24); ISTAT ARTERIAL BLOOD GAS PCO2 34 mmHg (35-46); ISTAT ARTERIAL BLOOD GAS PO2 105 mmHg (80-95); ISTAT ARTERIAL BLOOD GAS pH 7.33 (7.35-7.45); ISTAT CARBON DIOXIDE 19 mEq/l (24-31); ISTAT DELIVERY SYSTEM Ventilator; ISTAT FIO2 45 %; ISTAT PEEP 10; ISTAT RATE 24; ISTAT SITE Art Line
[2016-11-16] MEDS: PHENYLEPHRINE HCL INJ 40 MG in DEXTROSE 5% 500ML 500 ML IV PRN (01:44)
[2016-11-16] MEDS: NOREPINEPHRINE BIT INJ 8 MG in DEXTROSE 5% 500ML 500 ML IV PRN ×4 (01:45→21:36)
[2016-11-16] MEDS: PIPERACILL/TAZOBAC IV 4.5 GM in DEXTROSE 5% 100ML IV SCH ×3 (01:46→17:53)
[2016-11-16] MEDS: ASCORBIC ACID INJ 1,500 MG in NSS 100 ML IV SCH ×4 (01:48→19:59)
[2016-11-16] MEDS: HYDROCORTISONE IV 50 MG in SYRINGE 0 ML IV SCH ×4 (01:48→20:00)
[2016-11-16] MEDS: THIAMINE HCL INJ 200 MG in NSS 50ML IV SCH ×2 (01:48→14:30)
[2016-11-16] MEDS ORDERED: NURSING VERBAL MED ORDER STA ×2 (02:28→05:31)
[2016-11-16] MEDS: POTASSIUM CHLR 10MEQ / WTR IV SCH ×4 (03:18→06:41)
[2016-11-16 04:37] LABS: BASO % 0.1 %; BASO ABS # 0.01 K/uL (0-0.2); COMPLETE YES; EOS % 0.1 %; HEMATOCRIT 38.8 % (42-52); IG% 0.2 %; LYMPH % 9.4 %; LYMPH ABS # 1.45 K/uL (1.2-3.4); MEAN CELL VOLUME 87.4 fL (80-100); MEAN CORPUSCULAR HEMOGLOBIN 31.5 pg (25-34); MEAN CORPUSCULAR HGB CONC 36.1 g/dl (32-36); MEAN PLATELET VOLUME 11.3 fL (7.4-10.4); MONO % 5.2 %; PLATELET COUNT 209 K/uL (130-400); RED BLOOD COUNT 4.44 M/uL (4.7-6.1); WHITE BLOOD COUNT 15.46 K/uL (4.8-10.8)
[2016-11-16 04:49] LABS: INR 1.2 (0.9-1.1); PROTHROMBIN TIME (PATIENT) 12.8 SECONDS (9.0-12.0)
[2016-11-16 05:07] LABS: BUN/CREATININE RATIO 13.5 (10-20); CALCIUM 6.3 mg/dl (8.5-10.1); CREATININE 1.2 mg/dl (0.60-1.40); MAGNESIUM 1.6 mg/dl (1.8-2.4); POTASSIUM 3.8 mmol/L (3.5-5.1)
[2016-11-16] MEDS ORDERED: CALCIUM GLUCONATE 10% 2,000 MG in SODIUM CHLORIDE 0.9% 50ML 50 ML IV STA (05:35)
[2016-11-16] MEDS ORDERED: VANCOMYCIN INJ 1,250 MG in SODIUM CHLORIDE 0.9% 250ML 250 ML IV SCH (06:00)
[2016-11-16 06:03] LABS: PHOSPHORUS 2.8 mg/dl (2.5-4.9)
[2016-11-16] MEDS: MAGNESIUM SULFATE 1GM / D5W 1 GM in PREMIXED IN D5W 100 ML IV SCH ×4 (06:19→18:26)
[2016-11-16] MEDS ORDERED: Integrelin infusion --> STOP ORDER ONE (07:00)
--- NOTE | 2016-11-16 07:37 | Clinical Documentation Query ---
CLINICAL DOCUMENTATION QUERY Query #1/3 65-y/o male who presents with NSTEMI. Patient has become extremely hypotensive and required multiple pressors to maintain BP's adequate with life. Intesivist consult has stated a suspicion of bowel ischemia causing sepsis. The word acute is quintessential for capturing intended severity of illness. In your clinical opinion is this patient being managed for: ( ) Suspected Acute bowel ischemia due to hypoperfusion in setting of AR and cardiogenic shock. ( ) Other explanation of clinical findings (Please Explain) ( x ) Unable to determine (Please Define) ( ) Need to Discuss ( ) Not Agree The medical record reflects the following clinical findings, treatment, and risk factors. Clinical Indicators: As above. Hypotension despite multiple pressors. (97/). Treatment: IV Dobutamine gtt, IV Norepinephrine gtt, IV Phenylephrine gtt, IV Vassopressin gtt, IV Vancomycin, IV Zosyn, Risk Factors: Age, Cardiogenic shock, AR Query #2/3 Since admission this patent has had marginal Sats on mechanical ventilator, hypotension, and pulmonary edema by CXR. In your clinical opinion is this patient being managed for: ( ) Acute systolic CHF in setting of AR treated with dobutamine gtt, I/O's, daily weights, and PA pressure monitoring. ( ) Other explanation of clinical findings (Please Explain) ( ) Unable to determine (Please Define) ( ) Need to Discuss ( ) Not Agree The medical record reflects the following clinical findings, treatment, and risk factors. Clinical Indicators: As above. Intraoperative angiogram showed and Estimated LVEF of 25-30% and severe LV systolic dysfunction. Treatment: ICU hemodynamic monitoring with PA, arterial, and CV pressure monitoring, IV Dobutamine gtt, IV Norepinephrine gtt, IV Phenylephrine gtt, IV Vassopressin gtt, I/O's, daily weights, Risk Factors: AR Query #3/3 Family Practice Doctor has speculated that sepsis involve in this patient's workup 2/2 Ischemic bowel. Patient is being treated with multiple IV pressor support and IV antibiotics. This diagnosis carries significant clinical weight and unless carried through record to DC summary is at risk for not being coded by a professional help desk supervisor at this facility. In your clinical opinion is this patient being managed for: ( ) Sepsis POA ( ) Sepsis occurring after presentation Please clarify and document your clinical opinion in the progress notes and discharge summary. Terms such as "probable", "suspected", "likely", "questionable", "possible", or "still to be ruled out" are acceptable. IF IN AGREEMENT, YOU MUST DOCUMENT ABOVE DIAGNOSTIC STATEMENT IN DAILY PROGRESS NOTES AND DISCHARGE SUMMARY. This document is not part of the patient's record. Thank You, Sha Mena, RN [phone]
[2016-11-16] MEDS: CLOPIDOGREL BISULFATE 75 MG TAB PO SCH (08:24)
[2016-11-16] MEDS: ATORVASTATIN 40 MG TAB PO SCH (08:24)
[2016-11-16] MEDS: ASPIRIN 81 MG ECTAB PO SCH (08:24)
[2016-11-16] MEDS: PANTOprazole INJ 40 MG in SYRINGE 0 ML IV SCH ×2 (08:25→19:59)
--- NOTE | 2016-11-16 09:10 | DIAGNOSTIC IMAGING REPORT ---
CHEST ONE VIEW PORTABLE CLINICAL HISTORY: ARDS COMPARISON STUDY: Chest radiograph November 15, 2016. FINDINGS: The tip of the endotracheal tube is 4.4 cm above the jennifer. The tip of the nasogastric tube is within the mid body of the stomach. Right subclavian central line is in place. Tip is within the SVC. There is no pneumothorax. A right internal jugular introducer with a [place] catheter is in place. Tip is likely within the distal main pulmonary artery. A small right pleural effusion is unchanged. There are persistent perihilar and bibasilar opacities. There is dense retrocardiac opacity. IMPRESSION: 1. Satisfactory positioning of the endotracheal and nasogastric tubes. 2. [place] catheter place with tip projecting over the main pulmonary artery. 3. Persistent perihilar opacities which favor pulmonary edema although bilateral pneumonia could appear similar. No change in dense left basilar opacity which may reflect consolidation or atelectasis. 4. Small right pleural effusion which is similar to prior exam. Electronically signed by: Elkin Acosta M.D. 11/16/2016 9:09 AM Dictated Date/Time: 11/16/2016 9:03 AM
[2016-11-16] MEDS: ARTIFICIAL TEARS OP SOLN OP SCH ×2 (09:11)
[2016-11-16] MEDS: CHLORHEXIDINE GLUCONATE 0.12% 480 ML MT SCH (09:11)
[2016-11-16] MEDS: ASPIRIN 81 MG CHEW PO SCH (09:14)
[2016-11-16 09:30] LABS: BUN/CREATININE RATIO 13.7 (10-20); CALCIUM 6.6 mg/dl (8.5-10.1); CREATININE 1.1 mg/dl (0.60-1.40); MAGNESIUM 1.7 mg/dl (1.8-2.4); POTASSIUM 3.9 mmol/L (3.5-5.1)
[2016-11-16 09:31] LABS: PHOSPHORUS 2.6 mg/dl (2.5-4.9)
[2016-11-16 09:54] LABS: ISTAT ARTERIAL BLOOD GAS HCO3 19 meq/L (19-24); ISTAT ARTERIAL BLOOD GAS PCO2 41 mmHg (35-46); ISTAT ARTERIAL BLOOD GAS PO2 < 32 mmHg (80-95); ISTAT ARTERIAL BLOOD GAS pH 7.27 (7.35-7.45); ISTAT CARBON DIOXIDE 20 mEq/l (24-31); ISTAT SITE Art Line
[2016-11-16 09:54] LABS: ISTAT ARTERIAL BLOOD GAS HCO3 18 meq/L (19-24); ISTAT ARTERIAL BLOOD GAS PCO2 35 mmHg (35-46); ISTAT ARTERIAL BLOOD GAS PO2 87 mmHg (80-95); ISTAT ARTERIAL BLOOD GAS pH 7.32 (7.35-7.45); ISTAT CARBON DIOXIDE 19 mEq/l (24-31); ISTAT DELIVERY SYSTEM Ventilator; ISTAT FIO2 45 %; ISTAT PEEP 10; ISTAT RATE 24; ISTAT SITE Art Line
[2016-11-16] MEDS ORDERED: FUROSEMIDE INJ 40 MG in SYRINGE 0 ML IV SCH ×2 (10:00→14:00)
--- NOTE | 2016-11-16 11:45 | CARDIOLOGY PROGRESS NOTE ---
DATE: 11/16/2016 SUBJECTIVE: The patient was seen by me today in his intensive care unit room. History obtained from nursing staff and ICU staff. The patient remains sedated with intravenous Versed and fentanyl. He is endotracheally intubated. The nursing staff reports that there is evidence of bleeding in the oropharynx. On suctioning of the ET tube, there is blood. OG tube drainage is brown in color. Overall, since yesterday morning, the patient has been stable to improved. His blood pressure has improved. His heart rate has decreased. Yesterday, he had sinus tachycardia. His oxygen saturation has been stable. His FiO2 has been reduced. It is currently at 45%. His temperature elevation present yesterday has improved. His maximum rectal temperature yesterday was 38.9. On arrival to the intensive care unit, the patient was actually hypothermic with rectal temperature reported as low as 33.9. Most of the rectal temperatures on initial hours in the intensive care unit were in between 34.8 and 35.3. Thereafter, his temperature began to increase. There has been no report of any arrhythmias over the past 24 hours. When the Kingston was inserted yesterday, there were ventricular arrhythmias. Since then, no further ventricular arrhythmias noted. Review of monitor history by me shows normal rhythm with occasional premature ventricular beat. CURRENT MEDICATIONS: Furosemide 40 mg IV q. 8 hours, chewable aspirin 81 mg daily via OG tube, vibramycin 1250 mg IV q. 18 hours, piperacillin/tazobactam 4.5 grams IV q. 8 hours, ascorbic acid 1500 mg IV q. 6 hours, hydrocortisone 50 mg IV q. 6 hours, thiamine 200 mg IV q. 12 hours, regular insulin IV, dobutamine IV, intravenous Versed and intravenous fentanyl, norepinephrine IV, phenylephrine IV, vasopressin IV, clopidogrel 75 mg via OG tube daily, atorvastatin 80 mg via OG tube daily, pantoprazole 40 mg IV b.i.d., and intravenous dopamine. Intake and output yesterday 9078/1575. Today 2993/550. Today's weight 86.5 kg. Yesterday's weight 78.7 kg. OBJECTIVE: VITAL SIGNS: This morning with rectal temperature of 37.7, pulse 96, blood pressure 96/68, pulmonary artery pressure of 55/25, and pulse oximetry 96%. GENERAL: The patient is endotracheally intubated. He is sedated. He is not responsive to stimuli. NECK: No obvious jugular venous distention. LUNGS: Clear anterolaterally. No rales or wheezes heard. HEART: Regular rate and rhythm. S1 and S2 normal. No S3 or S4. No murmur or rub. ABDOMEN: Distended. No audible bowel sounds at the time of my exam. No bruits. EXTREMITIES: No pretibial edema. PULSES: Left radial artery with a catheter in place. Right radial pulse not palpable. Dorsalis pedis pulses strongly palpable bilaterally. NEUROLOGIC: The patient is sedated. Electrocardiogram today and reviewed by me shows normal sinus rhythm with evolving anterior septal myocardial infarction. Left axis deviation. Chest x-ray today and reviewed by me shows alveolar infiltrates in the lower lung gar. Increased pulmonary vasculature. LABORATORY DATA: Labs today with WBC 15.46, hemoglobin 14.0, hematocrit 38.8, and platelet count 209. Arterial blood gas today with a pH 7.32, pCO2 of 35 and pO2 of 87. This was on 45% FiO2. Metabolic profile with sodium 123, potassium 3.9, chloride 95, carbon dioxide 20, BUN 15, creatinine 1.10, random glucose 143, phosphorus 2.6, and magnesium 1.7. AST 330. ALT 85. Peak troponin I was greater than 200. Troponin I at 08:00 p.m. last evening was 147.000. Echocardiogram performed earlier yesterday morning was technically difficult and limited. LV ejection fraction 35%-40%. Mild concentric LVH. Inferior, septal, anterior septal, and anterior wall hypokinesis to akinesis. Normal right ventricular size and systolic function. Estimated right ventricular systolic pressure at that time was 30-40 mmHg. No pericardial effusion. No evidence of mechanical complication from the myocardial infarction. No evidence of VSD or significant mitral regurgitation. ASSESSMENT: 1. Acute anterior myocardial infarction secondary to total proximal left anterior descending exclusion. Subsequent successful intervention to the LAD with deployment of 2 drug-eluting stents from the proximal to mid LAD. KOBI-3 flow following intervention. It was in the LAD. The patient was also noted to have a total mid RCA occlusion with appearance consistent with chronic total occlusion. Left to right collateral flow. Mild atherosclerotic disease in the left circumflex coronary artery. 2. Moderate left ventricular systolic dysfunction on echocardiogram yesterday. 3. Respiratory failure. Diffuse alveolar infiltrates on chest x-ray yesterday. On today's x-ray, they appeared to be slightly improved compared to yesterday. His wedge yesterday after Kingston-Henry catheter was inserted was not significantly elevated. Thus, he could have noncardiogenic pulmonary edema. The patient also had severely decreased blood pressure yesterday. He had a decreased systemic vascular resistance. This would go against a cardiogenic shock. His overall left ventricular systolic function on yesterday morning's echo was moderately decreased. 4. His blood pressure has improved since yesterday. He does have significantly increased intake and output over the past 24 hours. With this, his pulmonary artery pressures have increased. He has since been started on intravenous furosemide. 5. Evidence of upper airway bleeding. 6. Evidence of upper gastrointestinal bleeding. Despite the noted bleeding, his hemoglobin has only decreased from 16.6 yesterday to 14.0 today. Also, there may be some component of hemodilution secondary to increased intake over the past 24 hours. His white blood cell count is decreasing compared to yesterday. 7. Distended abdomen and decreased bowel sounds. Cannot exclude ischemia to his colon. Despite this possibility, his pH today is actually improved compared to yesterday morning. 8. Stable renal function. 9. Hypomagnesemia. 10. No evidence of any spontaneous significant ventricular arrhythmias. Ventricular arrhythmias yesterday seemed to be related to insertion of the Kingston-Henry catheter. CARDIAC RECOMMENDATIONS: 1. Continue aspirin and clopidogrel. Continue atorvastatin. 2. Management of his pressors is being performed by Dr. Morelos in the ICU team. 3. I discussed his case yesterday with one of the heart failure specialist at [facility]. Based on his condition at that time, it was felt that the patient was not a candidate for any mechanical cardiac support. It was recommended to continue his current medical regimen. 4. Management of ventilator by the intensive care unit staff. 5. At this time, the patient has contraindications to any cardiac medication such as beta mihaela or afterload reduction therapy. Once he is off pressors and if his hemodynamics are stable, would then consider introduction of beta mihaela and the afterload reduction therapy. The patient's case was discussed with the nursing staff, Dr. Morelos, Dr. Bain, and the patient's . This was by me. MELISSA
--- NOTE | 2016-11-16 12:04 | Critical Care Progress Note ---
Critical Care Progress Note Date of Service Nov 16, 2016. ICU Day ICU Day Number: [address] Morelos Subjective not obtainable ROS. Objective S1S2 RRR, Pa catheter showing the PAD of 23 and PAOP of 19, no JVP, lungs with rhonchi, abdomen is benign, CCE. neuro he is sedated. Current SOFA Score SOFA Score Response (Comments) Value PaO2/FiO2 (mmHg) < 200 3 SaO2 / FIO2 142 - 220 2 Platelets (x10) > 150 0 Bilirubin (mg/dL) < 1.2 0 Carlos Coma Score 6 - 9 3 Level of Hypotension MAP less than 70 1 Creatinine (mg/dL) 1.2 - 1.9 1 Total 10 Previous SOFA Scores 5 Assessment & Plan 1- cardiogenic shock. 2- STEMI , 2 stents to the LAD. 3- acute resp failure with ARDS and possible DAH. 4- low grade splanchnic ischemia. 5- COPD. 6- pharyngeal bleeding. Plan: 1- continue HP every 12 hrs. 2- CXR today. 3- ABG and MVO2 with each profile. 4- continue current pressors, taper Hitesh to off. then Dopamine to off, then dobutamin to off then levo to off. 5- start diuresis, as the pt SV is much higher than the LVSW. 6- continue plavix and ASA. 7- heparin SC. 8- Protonix IV. 9- dc paralysis. 10-titrate FIO2 down to sat > 92%. 11- discussed in details with the staff on rounds and with the at the bed side. CCT 45 min. Consults & Procedures Consultants: cardiology. Procedures: non today Data Medications: Current Inpatient Medications Medications (Trade) Dose Ordered Sig/Guillaume Route Start Time Stop Time Status Last Admin Dose Admin Atropine Sulfate (Atropine Sulfate 0.1MG/Ml Inj) 0.5 mg ONE PRN IV 11/15/16 04:00 12/15/16 03:59 Ondansetron HCl 8 mg/Dextrose 54 ml @ 200 mls/hr Q6H PRN IV 11/15/16 04:00 12/15/16 03:59 Clopidogrel Bisulfate (plAVix TAB) 75 mg QAM PO 11/15/16 09:00 12/15/16 08:59 11/16/16 08:24 75 MG Atorvastatin Calcium (Lipitor Tab) 80 mg QAM PO 11/15/16 09:00 12/15/16 08:59 11/16/16 08:24 80 MG Fentanyl Citrate (Fentanyl Inj) 50 mcg Q1H PRN IV 11/15/16 04:00 11/29/16 03:59 11/15/16 05:02 50 MCG Dopamine HCl/ Dextrose 0 ml @ 0 mls/hr Q0M PRN IV 11/15/16 03:52 12/15/16 03:51 11/15/16 17:56 23.4 MLS/HR Midazolam HCl (Versed Inj) 1 mg Q1HWA PRN IV 11/15/16 04:00 12/15/16 03:59 Midazolam HCl 250 ml @ 0 mls/hr Q0M PRN IV 11/15/16 03:52 12/15/16 03:51 11/15/16 20:38 8 MLS/HR Glucose (Glucose 40% Gel) 15-30 GRAMS 15 GRAMS... UD PRN PO 11/15/16 06:30 12/15/16 06:29 Glucose (Glucose Chew Tab) 4-8 Tablets 4 Tabl... UD PRN PO 11/15/16 06:30 12/15/16 06:29 Dextrose (Dextrose 50% 50ML Syringe) 25-50ML OF 50% DW IV FOR... UD PRN IV 11/15/16 06:30 12/15/16 06:29 Glucagon (Glucagon Inj) 1 mg UD PRN SQ 11/15/16 06:30 12/15/16 06:29 Chlorhexidine Gluconate (Peridex Oral Soln) 15 ml DAILY MT 11/15/16 09:00 12/15/16 08:59 11/16/16 09:11 15 ML Artificial Tears (Artificial Tears) 1 drops DAILY OP 11/15/16 09:00 12/15/16 08:59 11/16/16 09:11 1 DROPS Pantoprazole Sodium 40 mg/ Syringe 10 ml @ 5 mls/min Q12H IV 11/15/16 09:00 12/15/16 08:59 11/16/16 08:25 5 MLS/MIN Phenylephrine HCl 40 mg/Dextrose 504 ml @ 0 mls/hr Q0M PRN IV 11/15/16 09:30 12/15/16 09:29 11/16/16 01:44 87.8 MLS/HR Vasopressin 50 units/Sodium Chloride 502.5 ml @ 0 mls/hr Q0M PRN IV 11/15/16 09:05 12/15/16 09:04 11/15/16 15:30 24 MLS/HR Piperacillin Sod/ Tazobactam Sod (Consult) 1 ea UD PRN N/A 11/15/16 09:15 12/15/16 09:14 Vancomycin HCl (Consult) 1 ea UD PRN N/A 11/15/16 09:15 12/15/16 09:14 Fentanyl Citrate 250 ml @ 0 mls/hr Q0M PRN IV 11/15/16 09:45 11/29/16 09:44 11/15/16 20:39 20 MLS/HR Norepinephrine Bitartrate 8 mg/ Dextrose 508 ml @ 0 mls/hr Q0M PRN IV 11/15/16 09:45 12/15/16 09:44 11/16/16 05:10 120 MLS/HR Silver Nitrate/ Potassium Nitrate (Silver Nitrate Applicators) 1 pkt UD PRN EXT 11/15/16 10:30 12/15/16 10:29 Sodium Bicarbonate 75 meq/Sodium Chloride 1,075 ml @ 0 mls/hr Q0M IV 11/15/16 10:30 12/15/16 10:29 11/15/16 11:27 100 MLS/HR Dobutamine HCl 250 ml @ 0 mls/hr Q0M IV 11/15/16 12:15 12/15/16 12:14 Piperacillin Sod/ Tazobactam Sod 4.5 gm/Dextrose 120 ml @ 30 mls/hr Q8H IV 11/15/16 18:00 11/22/16 17:59 11/16/16 09:11 30 MLS/HR Miscellaneous Information (Pending Order) 1 ea Q4H N/A 11/15/16 16:30 12/15/16 16:29 11/15/16 20:48 1 EA Insulin Human Regular 250 units/ Sodium Chloride 252.5 ml @ 0 mls/hr DAILY@1130 IV 11/15/16 13:45 12/15/16 13:44 11/15/16 16:19 3 MLS/HR Ascorbic Acid 1500 mg/Sodium Chloride 103 ml @ 206 mls/hr Q6H IV 11/15/16 14:30 11/19/16 08:59 11/16/16 08:22 206 MLS/HR Hydrocortisone Sodium Succinate 50 mg/Syringe 1 ml @ 4 mls/min Q6H IV 11/15/16 14:30 12/15/16 14:29 11/16/16 08:22 4 MLS/MIN Thiamine HCl 200 mg/Sodium Chloride 52 ml @ 210 mls/hr Q12H IV 11/15/16 14:30 12/15/16 14:29 11/16/16 01:48 210 MLS/HR Acetaminophen (Ofirmev Iv) 1,000 mg Q8H PRN IV 11/15/16 17:45 12/15/16 17:44 11/15/16 18:02 1,000 MG Heparin Sodium (Porcine) (Heparin 10 Unit/ ml 5 ml Flush) 5 ml PRN PRN FLUSH 11/16/16 01:00 12/16/16 00:59 Aspirin (Aspirin Chew) 81 mg QAM PO 11/16/16 09:00 12/16/16 08:59 11/16/16 09:14 81 MG Furosemide 40 mg/ Syringe 4 ml @ 4 mls/min Q8H IV 11/16/16 10:00 12/16/16 09:59 11/16/16 10:00 4 MLS/MIN Vancomycin HCl 1250 mg/Sodium Chloride 275 ml @ 125 mls/hr Q12H IV 11/16/16 18:00 11/22/16 17:59 Vital Signs: Date Time Temp Pulse Resp B/P (MAP) Pulse Ox O2 Delivery O2 Flow Rate FiO2 11/16/16 11:36 40 11/16/16 10:01 37.6 98 24 66/49 (32) 99 41/24 11/16/16 10:01 37.6 98 24 66/49 (32) 99 41/24 11/16/16 10:00 37.6 100 24 (32) 100 41/24 11/16/16 10:00 37.6 100 24 (32) 100 41/24 11/16/16 09:01 37.7 99 24 111/72 (42) 98 60/29 11/16/16 09:00 37.7 101 24 (42) 97 60/29 11/16/16 08:01 37.6 96 25 94/71 (39) 98 56/26 11/16/16 08:00 40 11/16/16 08:00 37.6 95 19 (39) 99 57/25 11/16/16 08:00 99 Mechanical Ventilator 45 11/16/16 07:35 45 11/16/16 07:23 37.7 94 23 (40) 97 58/11/16/16 07:01 37.6 93 20 99/70 (39) 97 56/11/16/16 07:00 37.6 94 25 (40) 98 58/25 11/16/16 06:01 37.7 96 24 96/68 (38) 96 55/11/16/16 05:30 37.6 95 24 50/26 95 11/16/16 05:18 45 11/16/16 05:01 37.6 97 24 106/73 (37) 95 51/26 11/16/16 04:36 37.6 98 24 52/27 93 11/16/16 04:01 37.7 101 24 95/71 (35) 94 49/25 11/16/16 04:00 45 11/16/16 04:00 93 Mechanical Ventilator 45 11/16/16 03:30 37.8 121 25 54/26 93 11/16/16 03:01 37.8 101 24 112/73 (38) 93 56/11/16/16 02:30 37.8 94 24 55/26 94 11/16/16 02:10 45 11/16/16 02:01 37.8 94 24 110/73 (36) 92 50/11/16/16 01:45 37.8 105 24 51/26 92 11/16/16 01:28 37.8 95 24 46/26 96 11/16/16 01:25 37.8 94 24 46/25 98 11/16/16 01:21 37.8 94 24 45/25 98 11/16/16 01:01 37.9 95 24 102/73 (33) 95 44/25 11/16/16 00:31 37.9 98 24 104/71 (33) 95 45/25 11/16/16 00:01 38.0 101 24 101/68 (36) 93 49/11/15/16 23:59 95 Mechanical Ventilator 45 11/15/16 23:59 45 11/15/16 23:45 38.0 98 18 47/22 83 11/15/16 23:15 38.1 97 24 47/23 93 11/15/16 23:06 45 11/15/16 22:15 38.1 100 24 (34) 95 46/23 11/15/16 22:01 38.2 102 24 99/69 (32) 96 41/11/15/16 22:00 38.2 102 24 (31) 95 41/23 11/15/16 21:45 38.4 102 24 (33) 94 43/24 11/15/16 21:31 38.4 102 24 97/70 (32) 96 42/11/15/16 21:30 38.4 102 24 (32) 96 42/11/15/16 21:15 38.5 104 24 (32) 96 42/11/15/16 21:00 38.5 107 24 (31) 97 41/11/15/16 20:45 38.5 106 24 (30) 97 38/23 11/15/16 20:30 38.6 106 24 91/65 (73) 97 39/11/15/16 20:21 50 11/15/16 20:15 38.6 108 24 (29) 99 36/11/15/16 20:01 38.7 109 24 88/66 (30) 99 38/11/15/16 20:00 38.7 112 24 (31) 97 37/11/15/16 20:00 60 11/15/16 20:00 Mechanical Ventilator 60 11/15/16 19:55 38.7 112 24 (31) 98 38/11/15/16 19:45 38.7 110 24 (30) 95 38/22 11/15/16 19:30 38.7 112 24 103/68 (81) 93 27/11/15/16 19:15 38.7 116 24 (25) 93 31/20 11/15/16 19:01 38.8 112 24 89/68 (30) 91 37/11/15/16 19:00 38.7 114 24 (30) 91 38/11/15/16 18:45 38.8 116 24 (30) 90 38/22 8 18:31 38.8 117 24 105/70 (35) 90 44/ 8 18:30 38.8 116 24 (35) 90 44/ 8 18:15 38.9 117 24 (35) 91 44/ 8 18:00 38.9 119 24 98/73 (77) 90 42/ 8 17:46 38.9 119 24 84/67 (31) 92 37/ 8 17:45 38.9 118 24 (31) 92 38/ 8 17:30 50 8/12/24 17:30 38.9 121 24 (31) 92 36/ 8 17:16 38.8 123 24 87/65 (31) 92 38/ 8 17:15 38.8 123 24 (31) 93 39/ 8 17:01 38.8 122 24 90/65 (32) 94 39/ 8 17:00 38.8 123 24 (31) 96 37/23 8 16:46 38.8 125 24 93/70 (33) 95 40/ 8 16:45 38.7 126 24 (33) 96 40/ 8/12/24 16:31 38.7 125 24 93/72 (34) 96 40/25 11/15/16 16:30 38.7 125 24 (33) 96 39/24 11/15/16 16:16 38.6 126 24 95/71 (33) 97 39/ 817 16:15 38.6 126 24 (32) 97 39/22 8 16:01 38.6 128 24 91/74 (82) 97 40/ 8 16:00 38.6 127 25 (33) 97 40/ 8 15:46 38.5 128 24 101/71 (33) 98 40/24 8 15:45 38.5 128 24 (32) 98 39/22 8 15:30 60 11/15/16 15:30 Mechanical Ventilator 60 11/15/16 15:30 38.5 133 24 101/71 (84) 99 36/19 8/9/17 15:16 38.4 137 24 82/59 (24) 97 30/19 8/9/17 15:15 38.4 138 24 (23) 98 31/16 8/9/17 15:00 38.4 138 24 94/65 (70) 98 32/18 8/9/17 14:15 38.2 142 24 93/67 (72) 97 32/19 8/9/17 14:02 38.2 143 24 97/70 (24) 98 31/16 8/9/17 14:00 38.2 143 24 97/70 (77) 99 31/18 8/9/17 13:57 70 8/9/17 13:45 38.2 142 24 95/71 (77) 97 31/18 8/9/17 13:35 38.1 142 24 95/73 (77) 98 32/18 8/9/17 13:30 38.1 141 24 95/70 (75) 98 31/17 8/9/17 13:25 38.1 142 24 92/71 (75) 98 32/17 8/9/17 13:20 38.1 144 24 91/66 (79) 99 34/15 8/9/17 13:15 38.1 145 24 97/70 (83) 98 30/17 8/9/17 13:10 38.1 145 24 101/75 (81) 98 30/17 8/9/17 13:05 38.1 146 24 100/71 (79) 97 28/16 8/9/17 13:00 38.1 147 24 97/74 (78) 97 31/18 8/9/17 12:55 38.1 148 24 96/76 (81) 97 29/17 8/9/17 12:50 38.1 151 24 109/79 (90) 97 30/17 8/9/17 12:45 38.1 148 24 111/77 (91) 96 29/17 8/9/17 12:40 38.1 145 24 82/63 (65) 95 28/15 8/9/17 12:36 38.1 143 24 77/58 (20) 95 26/14 8/9/17 12:30 38.0 144 24 98/72 (74) 97 29/15 8/9/17 12:20 38.0 137 24 101/77 (82) 98 32/11/15/16 12:15 38.0 137 24 100/81 (85) 98 11/15/16 12:10 37.9 137 24 105/77 (81) 98 11/15/16 12:05 37.9 137 24 99/80 (84) 98 11/15/16 12:00 37.9 137 24 104/78 (82) 98 11/15/16 12:00 95 Mechanical Ventilator 70 11/15/16 12:00 70 11/15/16 11:57 37.9 137 24 (24) 98 Laboratory Results: Last 24 Hours Test 11/15/16 12:37 11/15/16 12:39 11/15/16 13:22 11/15/16 15:01 Lactic Acid Level 2.9 mmol/L Bedside Glucose 234 mg/dl White Blood Count 20.60 K/uL Red Blood Count 5.27 M/uL Hemoglobin 16.6 g/dL Hematocrit 46.6 % Mean Corpuscular Volume 88.4 fL Mean Corpuscular Hemoglobin 31.5 pg Mean Corpuscular Hemoglobin Concent 35.6 g/dl RDW Standard Deviation 41.7 fL RDW Coefficient of Variation 13.0 % Platelet Count 276 K/uL Mean Platelet Volume 11.2 fL Nucleated RBC Absolute Count (auto) 0.03 K/uL Nucleated Red Blood Cells % 0.1 % Sodium Level 134 mmol/L Potassium Level 3.5 mmol/L Chloride Level 102 mmol/L Carbon Dioxide Level 23 mmol/L Anion Gap 9.0 mmol/L Blood Urea Nitrogen 20 mg/dl Creatinine 1.40 mg/dl Est Creatinine Clear Calc Drug Dose 50.2 ml/min Estimated GFR () 60.3 Estimated GFR (Non- 52.0 BUN/Creatinine Ratio 14.1 Random Glucose 205 mg/dl Calcium Level 6.9 mg/dl Phosphorus Level 1.2 mg/dl Magnesium Level 1.5 mg/dl Bedside Glucose (other) 225 mg/dl Test 11/15/16 17:27 11/15/16 18:45 11/15/16 19:39 11/15/16 20:00 Bedside Glucose (other) 220 mg/dl 222 mg/dl 221 mg/dl Sodium Level 129 mmol/L Potassium Level 4.2 mmol/L Chloride Level 99 mmol/L Carbon Dioxide Level 18 mmol/L Anion Gap 12.0 mmol/L Blood Urea Nitrogen 20 mg/dl Creatinine 1.50 mg/dl Est Creatinine Clear Calc Drug Dose 46.9 ml/min Estimated GFR () 55.4 Estimated GFR (Non- 47.8 BUN/Creatinine Ratio 13.1 Random Glucose 224 mg/dl Calcium Level 6.5 mg/dl Phosphorus Level 3.4 mg/dl Magnesium Level 1.3 mg/dl Total Creatine Kinase 3195 U/L Creatine Kinase MB 325.9 ng/ml Creatine Kinase MB Ratio 10.2 Troponin I 147.000 ng/ml Test 11/15/16 20:37 11/15/16 21:37 11/15/16 22:45 11/15/16 23:48 Bedside Glucose (other) 224 mg/dl 222 mg/dl 228 mg/dl Sodium Level 128 mmol/L Potassium Level 3.6 mmol/L Chloride Level 98 mmol/L Carbon Dioxide Level 20 mmol/L Anion Gap 10.0 mmol/L Blood Urea Nitrogen 17 mg/dl Creatinine 1.40 mg/dl Est Creatinine Clear Calc Drug Dose 50.2 ml/min Estimated GFR () 60.3 Estimated GFR (Non- 52.0 BUN/Creatinine Ratio 12.5 Random Glucose 218 mg/dl Calcium Level 6.5 mg/dl Phosphorus Level 2.5 mg/dl Magnesium Level 1.6 mg/dl Test 11/15/16 23:54 11/16/16 00:36 11/16/16 00:41 11/16/16 00:47 Bedside Glucose (other) 224 mg/dl 231 mg/dl Mixed Venous Blood pH 7.32 Mixed Venous Blood PCO2 43 mmHg Mixed Venous Blood PO2 39 mmHg Mixed Venous Blood HCO3 22 mmol/L Mixed Venous Blood Base Excess -4.5 mEq/L Mixed Venous Blood O2 Saturation 74.0 % Blood Gas Sample Site Art Line Bedside Blood Gas pH (LAB) 7.33 Bedside Blood Gas pCO2 (LAB) 34 mmHg Bedside Blood Gas pO2 (LAB) 105 mmHg Bedside Blood Gas HCO3 (LAB) 18 meq/L Bedside Blood Gas Total CO2 19 mEq/l Bedside Blood Gas Base Excess (LAB) -8.0 meq/L Bedside Blood Gas O2 Saturation 97.0 % Gold Test NA Oxygen Delivery Device Ventilator Bedside Oxygen Rate (breaths/min) 24 Bedside FiO2 45 % Blood Gas PEEP 10 Test 11/16/16 02:03 11/16/16 02:52 11/16/16 03:52 11/16/16 04:21 Bedside Glucose (other) 188 mg/dl 187 mg/dl 188 mg/dl White Blood Count 15.46 K/uL Red Blood Count 4.44 M/uL Hemoglobin 14.0 g/dL Hematocrit 38.8 % Mean Corpuscular Volume 87.4 fL Mean Corpuscular Hemoglobin 31.5 pg Mean Corpuscular Hemoglobin Concent 36.1 g/dl Platelet Count 209 K/uL Mean Platelet Volume 11.3 fL Neutrophils (%) (Auto) 85.0 % Lymphocytes (%) (Auto) 9.4 % Monocytes (%) (Auto) 5.2 % Eosinophils (%) (Auto) 0.1 % Basophils (%) (Auto) 0.1 % Neutrophils # (Auto) 13.16 K/uL Lymphocytes # (Auto) 1.45 K/uL Monocytes # (Auto) 0.80 K/uL Eosinophils # (Auto) 0.01 K/uL Basophils # (Auto) 0.01 K/uL RDW Standard Deviation 41.5 fL RDW Coefficient of Variation 12.8 % Immature Granulocyte % (Auto) 0.2 % Immature Granulocyte # (Auto) 0.03 K/uL Prothrombin Time 12.8 SECONDS Prothromb Time International Ratio 1.2 Sodium Level 125 mmol/L Potassium Level 3.8 mmol/L Chloride Level 96 mmol/L Carbon Dioxide Level 21 mmol/L Anion Gap 8.0 mmol/L Blood Urea Nitrogen 16 mg/dl Creatinine 1.20 mg/dl Est Creatinine Clear Calc Drug Dose 58.6 ml/min Estimated GFR () 72.6 Estimated GFR (Non- 62.6 BUN/Creatinine Ratio 13.5 Random Glucose 178 mg/dl Calcium Level 6.3 mg/dl Phosphorus Level 2.8 mg/dl Magnesium Level 1.6 mg/dl Total Bilirubin 1.0 mg/dl Direct Bilirubin 0.4 mg/dl Aspartate Amino Transf (AST/SGOT) 330 U/L Alanine Aminotransferase (ALT/SGPT) 85 U/L Alkaline Phosphatase 50 U/L Total Protein 4.9 gm/dl Albumin 1.9 gm/dl Test 11/16/16 04:53 11/16/16 06:30 11/16/16 09:03 11/16/16 09:25 Bedside Glucose (other) 179 mg/dl 170 mg/dl Sodium Level 123 mmol/L Potassium Level 3.9 mmol/L Chloride Level 95 mmol/L Carbon Dioxide Level 20 mmol/L Anion Gap 8.0 mmol/L Blood Urea Nitrogen 15 mg/dl Creatinine 1.10 mg/dl Est Creatinine Clear Calc Drug Dose 70.7 ml/min Estimated GFR () 80.6 Estimated GFR (Non- 69.6 BUN/Creatinine Ratio 13.7 Random Glucose 143 mg/dl Calcium Level 6.6 mg/dl Phosphorus Level 2.6 mg/dl Magnesium Level 1.7 mg/dl Blood Gas Sample Site Art Line Bedside Blood Gas pH (LAB) 7.27 Bedside Blood Gas pCO2 (LAB) 41 mmHg Bedside Blood Gas pO2 (LAB) < 32 mmHg Bedside Blood Gas HCO3 (LAB) 19 meq/L Bedside Blood Gas Total CO2 20 mEq/l Bedside Blood Gas Base Excess (LAB) -8.0 meq/L Bedside Blood Gas O2 Saturation 52.0 % Gold Test NA Test 11/16/16 09:31 11/16/16 09:40 11/16/16 11:08 11/16/16 11:49 Bedside Glucose (other) 142 mg/dl 157 mg/dl Blood Gas Sample Site Art Line Bedside Blood Gas pH (LAB) 7.32 Bedside Blood Gas pCO2 (LAB) 35 mmHg Bedside Blood Gas pO2 (LAB) 87 mmHg Bedside Blood Gas HCO3 (LAB) 18 meq/L Bedside Blood Gas Total CO2 19 mEq/l Bedside Blood Gas Base Excess (LAB) -8.0 meq/L Bedside Blood Gas O2 Saturation 96.0 % Gold Test NA Oxygen Delivery Device Ventilator Bedside Oxygen Rate (breaths/min) 24 Bedside FiO2 45 % Blood Gas PEEP 10
[2016-11-16 13:03] LABS: BUN/CREATININE RATIO 12.3 (10-20); CALCIUM 6.7 mg/dl (8.5-10.1); CREATININE 1.2 mg/dl (0.60-1.40); POTASSIUM 3.7 mmol/L (3.5-5.1)
[2016-11-16 13:04] LABS: PHOSPHORUS 2.8 mg/dl (2.5-4.9)
--- NOTE | 2016-11-16 13:55 | Pharmacy Progress Note ---
Pharmacy Abx Dose Short Note Date of Service Nov 16, 2016. Assessment & Plan ASSESSMENT: * Mr Mathew is a 65yo male admitted with chest pain. Found to have a STEMI and taken to field laboratory operator for stenting. * WBC 33.2, Lactic acid 2.6, Procalcitonin 5.93, hypotension requiring pressor support, mechanical ventilation * Broad-spectrum antibiotics started empirically * SCr has improved since admission: 1.4 --> 1.1 mg/dL PLAN: Vancomycin: * Loading dose: Vancomycin 2000 mg IV X 1 dose, then * Vancomycin 1250 mg IV every 12 hours. * Goal trough level estimate: between 15 - 20 mcg/mL. * Trough level ordered for 11/17/16 at 1730, prior to the 4th maintenance dose. Zosyn: * Zosyn 4.5gm IV x1 dose over 30 min, then * Zosyn 4.5gm IV q8h, extended 4-hr infusion * More aggressive regimen selected for critically ill pt Pharmacy will continue to follow and will adjust dose/frequency as necessary. Thank you
[2016-11-16] MEDS ORDERED: CALCIUM GLUCONATE 10% 2,000 MG in SODIUM CHLORIDE 0.9% 50ML 50 ML IV ONE (16:00)
[2016-11-16] MEDS: POTASSIUM CHLR 20 MEQ / WTR 20 MEQ in PREMIXED WATER 100 ML IV SCH ×2 (16:14→17:45)
[2016-11-16] MEDS: VANCOMYCIN INJ 1,250 MG in SODIUM CHLORIDE 0.9% 250ML 250 ML IV SCH (18:20)
[2016-11-16] MEDS: FUROSEMIDE INJ 40 MG in SYRINGE 0 ML IV SCH (20:00)
--- NOTE | 2016-11-16 21:19 | Progress Note ---
Medicine Progress Note Date & Time of Visit: Nov 16, 2016 at 9:20 . Subjective Remains sedated on ventilator. Hemodynamics improved. at bedside. . Objective Last 8 Hrs Date Time Temp Pulse Resp B/P (MAP) Pulse Ox O2 Delivery O2 Flow Rate FiO2 11/16/16 20:01 37.5 115 25 115/74 (44) 94 104/65 70/23 11/16/16 20:00 92 Mechanical Ventilator 40 11/16/16 20:00 37.5 116 27 105/66 94 71/24 11/16/16 20:00 40 11/16/16 19:48 37.5 109 26 104/65 92 71/30 11/16/16 19:30 37.5 103 26 104/64 93 69/11/16/16 18:30 37.4 117 25 (44) 95 94/62 68/28 11/16/16 18:15 37.4 113 25 (44) 94 100/63 69/30 11/16/16 18:01 37.4 101 24 106/71 (42) 96 98/61 67/26 11/16/16 18:00 37.4 101 24 (40) 96 100/61 65/23 11/16/16 17:30 40 11/16/16 17:00 95 24 (36) 95 101/61 64/19 11/16/16 16:45 36.9 92 24 (35) 95 103/61 65/15 11/16/16 16:30 37.1 108 24 (39) 96 106/65 65/22 11/16/16 16:15 34.0 110 24 (41) 96 106/65 66/24 11/16/16 16:00 37.3 11/16/16 16:00 37.3 99 24 (37) 96 105/64 63/18 11/16/16 16:00 99 Mechanical Ventilator 40 11/16/16 16:00 40 11/16/16 15:46 37.0 98 24 112/73 (91) 96 112/39 /19 11/16/16 15:45 36.9 99 24 (37) 96 123/-50 63/19 11/16/16 15:30 36.6 96 24 (38) 96 104/64 63/21 11/16/16 15:15 37.0 97 24 (35) 96 102/63 58/20 8/10/17 15:01 36.8 100 23 65/42 (45) 99 41/10 36/10 11/16/16 15:00 36.9 101 24 (21) 98 53/37 37/8 11/16/16 14:08 40 Physical Exam: General- sedated, no acute distress Eyes- pupils 3 mm, reactive; anicteric ENT- NGT; oral ETT Neck- + JVD; right IJ introducer with [place]-Henry catheter Lungs- scattered rhonchi Heart- RRR Thorax- right subclavian triple-lumen catheter Abdomen- quiet, soft, nondistended - Hansen cath Extremities- trace pretibial edema; no calf tenderness; SCD's and waffle boots applied Neuro- sedated . Laboratory Results: Last 24 Hours Test 11/15/16 21:37 11/15/16 22:45 11/15/16 23:48 11/15/16 23:54 Bedside Glucose (other) 222 mg/dl 228 mg/dl 224 mg/dl Sodium Level 128 mmol/L Potassium Level 3.6 mmol/L Chloride Level 98 mmol/L Carbon Dioxide Level 20 mmol/L Anion Gap 10.0 mmol/L Blood Urea Nitrogen 17 mg/dl Creatinine 1.40 mg/dl Est Creatinine Clear Calc Drug Dose 50.2 ml/min Estimated GFR () 60.3 Estimated GFR (Non- 52.0 BUN/Creatinine Ratio 12.5 Random Glucose 218 mg/dl Calcium Level 6.5 mg/dl Phosphorus Level 2.5 mg/dl Magnesium Level 1.6 mg/dl Test 11/16/16 00:36 11/16/16 00:41 11/16/16 00:47 11/16/16 02:03 Mixed Venous Blood pH 7.32 Mixed Venous Blood PCO2 43 mmHg Mixed Venous Blood PO2 39 mmHg Mixed Venous Blood HCO3 22 mmol/L Mixed Venous Blood Base Excess -4.5 mEq/L Mixed Venous Blood O2 Saturation 74.0 % Blood Gas Sample Site Art Line Bedside Blood Gas pH (LAB) 7.33 Bedside Blood Gas pCO2 (LAB) 34 mmHg Bedside Blood Gas pO2 (LAB) 105 mmHg Bedside Blood Gas HCO3 (LAB) 18 meq/L Bedside Blood Gas Total CO2 19 mEq/l Bedside Blood Gas Base Excess (LAB) -8.0 meq/L Bedside Blood Gas O2 Saturation 97.0 % Gold Test NA Oxygen Delivery Device Ventilator Bedside Oxygen Rate (breaths/min) 24 Bedside FiO2 45 % Blood Gas PEEP 10 Bedside Glucose (other) 231 mg/dl 188 mg/dl Test 11/16/16 02:52 11/16/16 03:52 11/16/16 04:21 11/16/16 04:53 Bedside Glucose (other) 187 mg/dl 188 mg/dl 179 mg/dl White Blood Count 15.46 K/uL Red Blood Count 4.44 M/uL Hemoglobin 14.0 g/dL Hematocrit 38.8 % Mean Corpuscular Volume 87.4 fL Mean Corpuscular Hemoglobin 31.5 pg Mean Corpuscular Hemoglobin Concent 36.1 g/dl Platelet Count 209 K/uL Mean Platelet Volume 11.3 fL Neutrophils (%) (Auto) 85.0 % Lymphocytes (%) (Auto) 9.4 % Monocytes (%) (Auto) 5.2 % Eosinophils (%) (Auto) 0.1 % Basophils (%) (Auto) 0.1 % Neutrophils # (Auto) 13.16 K/uL Lymphocytes # (Auto) 1.45 K/uL Monocytes # (Auto) 0.80 K/uL Eosinophils # (Auto) 0.01 K/uL Basophils # (Auto) 0.01 K/uL RDW Standard Deviation 41.5 fL RDW Coefficient of Variation 12.8 % Immature Granulocyte % (Auto) 0.2 % Immature Granulocyte # (Auto) 0.03 K/uL Prothrombin Time 12.8 SECONDS Prothromb Time International Ratio 1.2 Sodium Level 125 mmol/L Potassium Level 3.8 mmol/L Chloride Level 96 mmol/L Carbon Dioxide Level 21 mmol/L Anion Gap 8.0 mmol/L Blood Urea Nitrogen 16 mg/dl Creatinine 1.20 mg/dl Est Creatinine Clear Calc Drug Dose 58.6 ml/min Estimated GFR () 72.6 Estimated GFR (Non- 62.6 BUN/Creatinine Ratio 13.5 Random Glucose 178 mg/dl Calcium Level 6.3 mg/dl Phosphorus Level 2.8 mg/dl Magnesium Level 1.6 mg/dl Total Bilirubin 1.0 mg/dl Direct Bilirubin 0.4 mg/dl Aspartate Amino Transf (AST/SGOT) 330 U/L Alanine Aminotransferase (ALT/SGPT) 85 U/L Alkaline Phosphatase 50 U/L Total Protein 4.9 gm/dl Albumin 1.9 gm/dl Test 11/16/16 06:30 11/16/16 09:03 11/16/16 09:25 11/16/16 09:31 Bedside Glucose (other) 170 mg/dl 142 mg/dl Sodium Level 123 mmol/L Potassium Level 3.9 mmol/L Chloride Level 95 mmol/L Carbon Dioxide Level 20 mmol/L Anion Gap 8.0 mmol/L Blood Urea Nitrogen 15 mg/dl Creatinine 1.10 mg/dl Est Creatinine Clear Calc Drug Dose 70.7 ml/min Estimated GFR () 80.6 Estimated GFR (Non- 69.6 BUN/Creatinine Ratio 13.7 Random Glucose 143 mg/dl Calcium Level 6.6 mg/dl Phosphorus Level 2.6 mg/dl Magnesium Level 1.7 mg/dl Blood Gas Sample Site Art Line Bedside Blood Gas pH (LAB) 7.27 Bedside Blood Gas pCO2 (LAB) 41 mmHg Bedside Blood Gas pO2 (LAB) < 32 mmHg Bedside Blood Gas HCO3 (LAB) 19 meq/L Bedside Blood Gas Total CO2 20 mEq/l Bedside Blood Gas Base Excess (LAB) -8.0 meq/L Bedside Blood Gas O2 Saturation 52.0 % Gold Test NA Test 11/16/16 09:40 11/16/16 11:08 11/16/16 11:49 11/16/16 15:48 Blood Gas Sample Site Art Line Bedside Blood Gas pH (LAB) 7.32 Bedside Blood Gas pCO2 (LAB) 35 mmHg Bedside Blood Gas pO2 (LAB) 87 mmHg Bedside Blood Gas HCO3 (LAB) 18 meq/L Bedside Blood Gas Total CO2 19 mEq/l Bedside Blood Gas Base Excess (LAB) -8.0 meq/L Bedside Blood Gas O2 Saturation 96.0 % Gold Test NA Oxygen Delivery Device Ventilator Bedside Oxygen Rate (breaths/min) 24 Bedside FiO2 45 % Blood Gas PEEP 10 Bedside Glucose (other) 157 mg/dl 139 mg/dl Sodium Level 123 mmol/L Potassium Level 3.7 mmol/L Chloride Level 91 mmol/L Carbon Dioxide Level 20 mmol/L Anion Gap 12.0 mmol/L Blood Urea Nitrogen 15 mg/dl Creatinine 1.20 mg/dl Est Creatinine Clear Calc Drug Dose 64.8 ml/min Estimated GFR () 72.6 Estimated GFR (Non- 62.6 BUN/Creatinine Ratio 12.3 Random Glucose 155 mg/dl Calcium Level 6.7 mg/dl Phosphorus Level 2.8 mg/dl Magnesium Level 2.0 mg/dl Procalcitonin 5.93 ng/ml Test 11/16/16 17:51 11/16/16 19:49 Bedside Glucose (other) 145 mg/dl 152 mg/dl Assessment & Plan STEMI S/P PCI LAD with 2 drug-eluting stents. Echo demonstrated anterior, septal, anteroseptal, inferior wall motion abnormalities, overall LVEF of 35-40 %. Receiving aspirin, clopidogrel, statin. No beta mihaela this time due to cardiogenic shock. Ongoing management per Cardiology. PULMONARY EDEMA Echo as noted above. Diurese as tolerated. ACUTE RESPIRATORY FAILURE Secondary to pulmonary edema. Continue ventilatory support. Management/weaning per CCM. CARDIOGENIC SHOCK Remains on multiple pressors. As tolerated. HYPERGLYCEMIA Random blood sugars as high as 425. Started on insulin infusion. Hemoglobin A1c 5.3. Follow. FEVER / LEUKOCYTOSIS Could be secondary to infection or [place]. Receiving empiric therapy with intravenous vancomycin and piperacillin/ tazobactam. VTE PROPHYLAXIS No anticoagulants at this time due to bruising and bleeding associated with other antithrombotic medications. SCD's. Critically ill with multiple problems as summarized above. Case discussed with Cardiology. at bedside and given update. . Current Inpatient Medications: Current Inpatient Medications Medications (Trade) Dose Ordered Sig/Guillaume Route Start Time Stop Time Status Last Admin Dose Admin Atropine Sulfate (Atropine Sulfate 0.1MG/Ml Inj) 0.5 mg ONE PRN IV 11/15/16 04:00 12/15/16 03:59 Ondansetron HCl 8 mg/Dextrose 54 ml @ 200 mls/hr Q6H PRN IV 11/15/16 04:00 12/15/16 03:59 Clopidogrel Bisulfate (plAVix TAB) 75 mg QAM PO 11/15/16 09:00 12/15/16 08:59 11/16/16 08:24 75 MG Atorvastatin Calcium (Lipitor Tab) 80 mg QAM PO 11/15/16 09:00 12/15/16 08:59 11/16/16 08:24 80 MG Fentanyl Citrate (Fentanyl Inj) 50 mcg Q1H PRN IV 11/15/16 04:00 11/29/16 03:59 11/15/16 05:02 50 MCG Midazolam HCl (Versed Inj) 1 mg Q1HWA PRN IV 11/15/16 04:00 12/15/16 03:59 Midazolam HCl 250 ml @ 0 mls/hr Q0M PRN IV 11/15/16 03:52 12/15/16 03:51 11/15/16 20:38 8 MLS/HR Glucose (Glucose 40% Gel) 15-30 GRAMS 15 GRAMS... UD PRN PO 11/15/16 06:30 12/15/16 06:29 Glucose (Glucose Chew Tab) 4-8 Tablets 4 Tabl... UD PRN PO 11/15/16 06:30 12/15/16 06:29 Dextrose (Dextrose 50% 50ML Syringe) 25-50ML OF 50% DW IV FOR... UD PRN IV 11/15/16 06:30 12/15/16 06:29 Glucagon (Glucagon Inj) 1 mg UD PRN SQ 11/15/16 06:30 12/15/16 06:29 Chlorhexidine Gluconate (Peridex Oral Soln) 15 ml DAILY MT 11/15/16 09:00 12/15/16 08:59 11/16/16 09:11 15 ML Artificial Tears (Artificial Tears) 1 drops DAILY OP 11/15/16 09:00 12/15/16 08:59 11/16/16 09:11 1 DROPS Pantoprazole Sodium 40 mg/ Syringe 10 ml @ 5 mls/min Q12H IV 11/15/16 09:00 12/15/16 08:59 11/16/16 19:59 5 MLS/MIN Phenylephrine HCl 40 mg/Dextrose 504 ml @ 0 mls/hr Q0M PRN IV 11/15/16 09:30 12/15/16 09:29 11/16/16 01:44 87.8 MLS/HR Vasopressin 50 units/Sodium Chloride 502.5 ml @ 0 mls/hr Q0M PRN IV 11/15/16 09:05 12/15/16 09:04 11/15/16 15:30 24 MLS/HR Piperacillin Sod/ Tazobactam Sod (Consult) 1 ea UD PRN N/A 11/15/16 09:15 12/15/16 09:14 Vancomycin HCl (Consult) 1 ea UD PRN N/A 11/15/16 09:15 12/15/16 09:14 Fentanyl Citrate 250 ml @ 0 mls/hr Q0M PRN IV 11/15/16 09:45 11/29/16 09:44 11/15/16 20:39 20 MLS/HR Norepinephrine Bitartrate 8 mg/ Dextrose 508 ml @ 0 mls/hr Q0M PRN IV 11/15/16 09:45 12/15/16 09:44 11/16/16 15:02 120 MLS/HR Silver Nitrate/ Potassium Nitrate (Silver Nitrate Applicators) 1 pkt UD PRN EXT 11/15/16 10:30 12/15/16 10:29 Piperacillin Sod/ Tazobactam Sod 4.5 gm/Dextrose 120 ml @ 30 mls/hr Q8H IV 11/15/16 18:00 11/22/16 17:59 11/16/16 17:53 30 MLS/HR Miscellaneous Information (Pending Order) 1 ea Q4H N/A 11/15/16 16:30 12/15/16 16:29 11/15/16 20:48 1 EA Insulin Human Regular 250 units/ Sodium Chloride 252.5 ml @ 0 mls/hr DAILY@1130 IV 11/15/16 13:45 12/15/16 13:44 11/15/16 16:19 3 MLS/HR Ascorbic Acid 1500 mg/Sodium Chloride 103 ml @ 206 mls/hr Q6H IV 11/15/16 14:30 11/19/16 08:59 11/16/16 19:59 206 MLS/HR Hydrocortisone Sodium Succinate 50 mg/Syringe 1 ml @ 4 mls/min Q6H IV 11/15/16 14:30 12/15/16 14:29 11/16/16 20:00 4 MLS/MIN Thiamine HCl 200 mg/Sodium Chloride 52 ml @ 210 mls/hr Q12H IV 11/15/16 14:30 12/15/16 14:29 11/16/16 14:30 210 MLS/HR Acetaminophen (Ofirmev Iv) 1,000 mg Q8H PRN IV 11/15/16 17:45 12/15/16 17:44 11/15/16 18:02 1,000 MG Heparin Sodium (Porcine) (Heparin 10 Unit/ ml 5 ml Flush) 5 ml PRN PRN FLUSH 11/16/16 01:00 12/16/16 00:59 Aspirin (Aspirin Chew) 81 mg QAM PO 11/16/16 09:00 12/16/16 08:59 11/16/16 09:14 81 MG Vancomycin HCl 1250 mg/Sodium Chloride 275 ml @ 125 mls/hr Q12H IV 11/16/16 18:00 11/22/16 17:59 11/16/16 18:20 125 MLS/HR Furosemide 40 mg/ Syringe 4 ml @ 4 mls/min Q12 IV 11/16/16 21:00 12/16/16 09:59 11/16/16 20:00 4 MLS/MIN
[2016-11-16] MEDS: FENTANYL 1250MCG/250ML NSS IV PRN (22:17)
[2016-11-17] VITALS (35 sets, daily range): BP systolic 29–300; BP diastolic 9–300; PULSE 94–151; TEMP 36.3–38.2; O2SAT 68–100
[2016-11-17] MEDS: NOREPINEPHRINE BIT INJ 8 MG in DEXTROSE 5% 500ML 500 ML IV PRN ×3 (00:17→05:36)
[2016-11-17] MEDS: HYDROCORTISONE IV 50 MG in SYRINGE 0 ML IV SCH ×2 (02:05→07:53)
[2016-11-17] MEDS: THIAMINE HCL INJ 200 MG in NSS 50ML IV SCH (02:06)
[2016-11-17] MEDS: PIPERACILL/TAZOBAC IV 4.5 GM in DEXTROSE 5% 100ML IV SCH ×2 (02:06→11:03)
[2016-11-17] MEDS: ASCORBIC ACID INJ 1,500 MG in NSS 100 ML IV SCH ×2 (02:06→08:05)
[2016-11-17] MEDS: MIDAZOLAM 125MG/250ML D5W 250 ML IV PRN (02:51)
[2016-11-17] MEDS: INSULIN REGULAR 250 UNITS in SODIUM CHLORIDE 0.9% 250ML 250 ML IV SCH ×2 (02:58→11:42)
[2016-11-17] MEDS: ACETAMINOPHEN 1000 MG/100 ML IV IV PRN (05:12)
[2016-11-17] MEDS: VANCOMYCIN INJ 1,250 MG in SODIUM CHLORIDE 0.9% 250ML 250 ML IV SCH (05:31)
[2016-11-17 07:04] LABS: BUN/CREATININE RATIO 9.8 (10-20); CALCIUM 6.3 mg/dl (8.5-10.1); CREATININE 1.2 mg/dl (0.60-1.40); MAGNESIUM 1.8 mg/dl (1.8-2.4); PHOSPHORUS 2.6 mg/dl (2.5-4.9); POTASSIUM 4.2 mmol/L (3.5-5.1)
[2016-11-17 07:24] LABS: HEMATOCRIT 35.5 % (42-52); MEAN CELL VOLUME 86.2 fL (80-100); MEAN CORPUSCULAR HEMOGLOBIN 31.3 pg (25-34); MEAN CORPUSCULAR HGB CONC 36.3 g/dl (32-36); MEAN PLATELET VOLUME 12.2 fL (7.4-10.4); PLATELET COUNT 235 K/uL (130-400); RED BLOOD COUNT 4.12 M/uL (4.7-6.1); WHITE BLOOD COUNT 19.82 K/uL (4.8-10.8)
[2016-11-17 07:29] LABS: COMPLETE YES; ECHINOCYTES 1+; IG% 0.3 %; LYMPH % 7.1 %; MONO % 5.4 %; NEUT % 87.2 %; VACUOLIZATION 1+
[2016-11-17] MEDS: ASPIRIN 81 MG CHEW PO SCH (07:53)
[2016-11-17] MEDS: FUROSEMIDE INJ 40 MG in SYRINGE 0 ML IV SCH (07:53)
[2016-11-17] MEDS: PANTOprazole INJ 40 MG in SYRINGE 0 ML IV SCH (07:53)
[2016-11-17] MEDS: CLOPIDOGREL BISULFATE 75 MG TAB PO SCH (07:54)
[2016-11-17] MEDS: ATORVASTATIN 40 MG TAB PO SCH (07:54)
[2016-11-17] MEDS: CHLORHEXIDINE GLUCONATE 0.12% 480 ML MT SCH (07:56)
[2016-11-17] MEDS: ARTIFICIAL TEARS OP SOLN OP SCH ×2 (07:56)
[2016-11-17 09:03] LABS: MIXED VEN BASE EXCESS -4.3 mEq/L (-7.7-1.9); MIXED VEN PH 7.31 (7.35-7.45); MIXED VENOUS O2 SATURATION 62.8 % (68)
[2016-11-17 09:15] LABS: ISTAT ARTERIAL BLOOD GAS HCO3 16 meq/L (19-24); ISTAT ARTERIAL BLOOD GAS PCO2 33 mmHg (35-46); ISTAT ARTERIAL BLOOD GAS PO2 66 mmHg (80-95); ISTAT CARBON DIOXIDE 17 mEq/l (24-31); ISTAT DELIVERY SYSTEM Ventilator; ISTAT FIO2 50 %; ISTAT PEEP 50; ISTAT RATE 24; ISTAT SITE Art Line
[2016-11-17 09:16] LABS: URINE APPEARANCE CLEAR (CLEAR); URINE BILIRUBIN NEG (NEG); URINE COLOR DK YELLOW; URINE NITRITE NEG (NEG); URINE SPECIFIC GRAVITY 1.026 (1.000-1.030); UROBILINOGEN NEG (NEG)
[2016-11-17 09:17] LABS: MANUAL MICROSCOPIC REQUIRED? NO; REVIEW REQ? YES
[2016-11-17] MEDS ORDERED: LIDOCAINE HCL 1% 20 ML VIAL ONE (09:20)
[2016-11-17 09:31] LABS: URINE PATH CASTS 1-5 GRANULAR CASTS /lpf (0)
[2016-11-17 09:39] LABS: CALCIUM 6.5 mg/dl (8.5-10.1); CREATININE 1.3 mg/dl (0.60-1.40); POTASSIUM 4.1 mmol/L (3.5-5.1)
--- NOTE | 2016-11-17 09:55 | Progress Note ---
Medicine Progress Note Date & Time of Visit: Nov 17, 2016 at 08:00 . Subjective Sedated on vent. Pressors being weaned. No new problems reported during the night. at bedside. . Objective Last 8 Hrs Date Time Temp Pulse Resp B/P (MAP) Pulse Ox O2 Delivery O2 Flow Rate FiO2 11/17/16 07:25 50 11/17/16 06:01 38.1 102 30 95/78 (39) 95 81/58 53/30 11/17/16 05:58 70 11/17/16 05:30 38.2 102 19 81/57 94 52/29 11/17/16 05:01 38.2 104 18 85/73 (37) 95 80/56 49/27 11/17/16 04:01 38.0 97 24 105/74 (40) 96 96/63 53/30 11/17/16 04:00 100 11/17/16 04:00 92 Mechanical Ventilator 100 11/17/16 03:40 38.0 97 30 (38) 90 87/59 51/26 11/17/16 03:01 37.9 99 27 118/82 (42) 91 106/66 60/29 11/17/16 02:30 37.9 101 27 119/73 92 68/35 11/17/16 02:01 37.9 98 21 130/96 (39) 91 105/68 55/28 11/17/16 02:00 100 I/O's 11/16: I = 8846 O = 4850 I/O's last shift: I = 2859 O = 1200 . Physical Exam: General- sedated, no acute distress Eyes- pupils 2 mm, reactive; anicteric ENT- NGT; oral ETT Neck- + JVD; right IJ introducer with [place]-Henry catheter Lungs- few scattered rhonchi Heart- RRR Thorax- right subclavian triple-lumen catheter Abdomen- quiet, distended - Hansen cath Extremities- trace pretibial edema; no calf tenderness Neuro- sedated . Laboratory Results: Last 24 Hours Test 11/16/16 11:08 11/16/16 11:49 11/16/16 15:48 11/16/16 17:51 Bedside Glucose (other) 157 mg/dl 139 mg/dl 145 mg/dl Sodium Level 123 mmol/L Potassium Level 3.7 mmol/L Chloride Level 91 mmol/L Carbon Dioxide Level 20 mmol/L Anion Gap 12.0 mmol/L Blood Urea Nitrogen 15 mg/dl Creatinine 1.20 mg/dl Est Creatinine Clear Calc Drug Dose 64.8 ml/min Estimated GFR () 72.6 Estimated GFR (Non- 62.6 BUN/Creatinine Ratio 12.3 Random Glucose 155 mg/dl Calcium Level 6.7 mg/dl Phosphorus Level 2.8 mg/dl Magnesium Level 2.0 mg/dl Procalcitonin 5.93 ng/ml Test 11/16/16 19:49 11/16/16 23:49 11/17/16 03:41 11/17/16 05:42 Bedside Glucose (other) 152 mg/dl 157 mg/dl 147 mg/dl White Blood Count 19.82 K/uL Red Blood Count 4.12 M/uL Hemoglobin 12.9 g/dL Hematocrit 35.5 % Mean Corpuscular Volume 86.2 fL Mean Corpuscular Hemoglobin 31.3 pg Mean Corpuscular Hemoglobin Concent 36.3 g/dl Platelet Count 235 K/uL Mean Platelet Volume 12.2 fL Neutrophils (%) (Auto) 87.2 % Lymphocytes (%) (Auto) 7.1 % Monocytes (%) (Auto) 5.4 % Eosinophils (%) (Auto) 0.0 % Basophils (%) (Auto) 0.0 % Neutrophils # (Auto) 17.29 K/uL Lymphocytes # (Auto) 1.40 K/uL Monocytes # (Auto) 1.08 K/uL Eosinophils # (Auto) 0.00 K/uL Basophils # (Auto) 0.00 K/uL RDW Standard Deviation 41.2 fL RDW Coefficient of Variation 13.0 % Immature Granulocyte % (Auto) 0.3 % Immature Granulocyte # (Auto) 0.05 K/uL Toxic Vacuolation 1+ Echinocytes 1+ Sodium Level 116 mmol/L Potassium Level 4.2 mmol/L Chloride Level 86 mmol/L Carbon Dioxide Level 18 mmol/L Anion Gap 12.0 mmol/L Blood Urea Nitrogen 12 mg/dl Creatinine 1.20 mg/dl Est Creatinine Clear Calc Drug Dose 66.2 ml/min Estimated GFR () 72.6 Estimated GFR (Non- 62.6 BUN/Creatinine Ratio 9.8 Random Glucose 112 mg/dl Calcium Level 6.3 mg/dl Phosphorus Level 2.6 mg/dl Magnesium Level 1.8 mg/dl Test 11/17/16 08:47 11/17/16 08:50 11/17/16 08:55 11/17/16 09:00 Urine Color DK YELLOW Urine Appearance CLEAR Urine pH 5.0 Urine Specific [place] 1.026 Urine Protein NEG Urine Glucose (UA) NEG Urine Ketones NEG Urine Occult Blood TRACE Urine Nitrite NEG Urine Bilirubin NEG Urine Urobilinogen NEG Urine Leukocyte Esterase NEG Urine WBC (Auto) 1-5 /hpf Urine RBC (Auto) 10-30 /hpf Urine Hyaline Casts (Auto) 1-5 /lpf Urine Epithelial Cells (Auto) 10-20 /lpf Urine Bacteria (Auto) NEG Urine Crystals URIC ACID Urine Pathogenic Casts 1-5 GRANULAR CASTS /lpf Urine Yeast (Auto) Urine Osmolality 485 mOms/kg Urine Random Sodium 23 mEq/L Mixed Venous Blood pH 7.31 Mixed Venous Blood PCO2 44 mmHg Mixed Venous Blood PO2 33 mmHg Mixed Venous Blood HCO3 22 mmol/L Mixed Venous Blood Base Excess -4.3 mEq/L Mixed Venous Blood O2 Saturation 62.8 % Sodium Level 116 mmol/L Potassium Level 4.1 mmol/L Chloride Level 85 mmol/L Carbon Dioxide Level 21 mmol/L Anion Gap 10.0 mmol/L Blood Urea Nitrogen 13 mg/dl Creatinine 1.30 mg/dl Est Creatinine Clear Calc Drug Dose 61.1 ml/min Estimated GFR () 65.9 Estimated GFR (Non- 56.9 BUN/Creatinine Ratio 10.0 Random Glucose 100 mg/dl Calcium Level 6.5 mg/dl Blood Gas Sample Site Art Line Bedside Blood Gas pH (LAB) 7.30 Bedside Blood Gas pCO2 (LAB) 33 mmHg Bedside Blood Gas pO2 (LAB) 66 mmHg Bedside Blood Gas HCO3 (LAB) 16 meq/L Bedside Blood Gas Total CO2 17 mEq/l Bedside Blood Gas Base Excess (LAB) -10.0 meq/L Bedside Blood Gas O2 Saturation 90.0 % Gold Test NA Oxygen Delivery Device Ventilator Bedside Oxygen Rate (breaths/min) 24 Bedside FiO2 50 % Blood Gas PEEP 50 Diagnostic Imaging: Chest x-ray reviewed by the undersigned and interpreted formally by Radiology: CHEST ONE VIEW PORTABLE IMPRESSION: 1. Satisfactory positioning of the endotracheal and nasogastric tubes. 2. [place]-Henry catheter place with tip projecting over the main pulmonary artery. 3. Persistent perihilar opacities which favor pulmonary edema although bilateral pneumonia could appear similar. No change in dense left basilar opacity which may reflect consolidation or atelectasis. 4. Small right pleural effusion which is similar to prior exam. Electronically signed by: Elkin Acosta M.D. 11/16/2016 9:09 AM Dictated Date/Time: 11/16/2016 9:03 AM . Assessment & Plan STEMI S/P PCI LAD with 2 drug-eluting stents. Echo demonstrated anterior, septal, anteroseptal, inferior wall motion abnormalities, overall LVEF of 35-40 %. Receiving aspirin, clopidogrel, statin. No beta mihaela this time due to cardiogenic shock. Ongoing management per Cardiology. PULMONARY EDEMA Echo as noted above. Acute left ventricular systolic heart failure. Diurese as tolerated. ACUTE RESPIRATORY FAILURE Secondary to pulmonary edema. Continue ventilatory support. Management/weaning per CCM. CARDIOGENIC SHOCK Required multiple pressors and hydrocortisone for hemodynamics support. Pressors being weaned. HYPERGLYCEMIA Random blood sugars as high as 425. Started on insulin infusion. Hemoglobin A1c 5.3. Follow. FEVER / LEUKOCYTOSIS Met criteria for SIRS. Lactate and procalcitonin elevated. SIRS could be secondary to [place] or sepsis. Possible infiltrate on chest x-ray. Consider mesenteric ischemic / bowel infarct from shock. Receiving empiric therapy with intravenous vancomycin and piperacillin/ tazobactam. HYPONATREMIA Serum sodium 116. Vasopressin + administration of free water with various medication infusions contributing factors. Follow. VTE PROPHYLAXIS No anticoagulants at this time due to bruising and bleeding associated with other antithrombotic medications. SCD's. Critically ill with multiple problems as summarized above. Case discussed with CCM. at bedside and given update. . Consultants: Cardiology Critical Care Medicine . Current Inpatient Medications: Current Inpatient Medications Medications (Trade) Dose Ordered Sig/Guillaume Route Start Time Stop Time Status Last Admin Dose Admin Atropine Sulfate (Atropine Sulfate 0.1MG/Ml Inj) 0.5 mg ONE PRN IV 11/15/16 04:00 12/15/16 03:59 Ondansetron HCl 8 mg/Dextrose 54 ml @ 200 mls/hr Q6H PRN IV 11/15/16 04:00 12/15/16 03:59 Clopidogrel Bisulfate (plAVix TAB) 75 mg QAM PO 11/15/16 09:00 12/15/16 08:59 11/17/16 07:54 75 MG Atorvastatin Calcium (Lipitor Tab) 80 mg QAM PO 11/15/16 09:00 12/15/16 08:59 11/17/16 07:54 80 MG Fentanyl Citrate (Fentanyl Inj) 50 mcg Q1H PRN IV 11/15/16 04:00 11/29/16 03:59 11/15/16 05:02 50 MCG Midazolam HCl (Versed Inj) 1 mg Q1HWA PRN IV 11/15/16 04:00 12/15/16 03:59 Midazolam HCl 250 ml @ 0 mls/hr Q0M PRN IV 11/15/16 03:52 12/15/16 03:51 11/17/16 02:51 16 MLS/HR Glucose (Glucose 40% Gel) 15-30 GRAMS 15 GRAMS... UD PRN PO 11/15/16 06:30 12/15/16 06:29 Glucose (Glucose Chew Tab) 4-8 Tablets 4 Tabl... UD PRN PO 11/15/16 06:30 12/15/16 06:29 Dextrose (Dextrose 50% 50ML Syringe) 25-50ML OF 50% DW IV FOR... UD PRN IV 11/15/16 06:30 12/15/16 06:29 Glucagon (Glucagon Inj) 1 mg UD PRN SQ 11/15/16 06:30 12/15/16 06:29 Chlorhexidine Gluconate (Peridex Oral Soln) 15 ml DAILY MT 11/15/16 09:00 12/15/16 08:59 11/17/16 07:56 15 ML Artificial Tears (Artificial Tears) 1 drops DAILY OP 11/15/16 09:00 12/15/16 08:59 11/17/16 07:56 1 DROPS Pantoprazole Sodium 40 mg/ Syringe 10 ml @ 5 mls/min Q12H IV 11/15/16 09:00 12/15/16 08:59 11/17/16 07:53 5 MLS/MIN Piperacillin Sod/ Tazobactam Sod (Consult) 1 ea UD PRN N/A 11/15/16 09:15 12/15/16 09:14 Vancomycin HCl (Consult) 1 ea UD PRN N/A 11/15/16 09:15 12/15/16 09:14 Fentanyl Citrate 250 ml @ 0 mls/hr Q0M PRN IV 11/15/16 09:45 8/23/17 09:44 11/16/16 22:17 20 MLS/HR Norepinephrine Bitartrate 8 mg/ Dextrose 508 ml @ 0 mls/hr Q0M PRN IV 11/15/16 09:45 12/15/16 09:44 11/17/16 05:36 165 MLS/HR Silver Nitrate/ Potassium Nitrate (Silver Nitrate Applicators) 1 pkt UD PRN EXT 11/15/16 10:30 12/15/16 10:29 Piperacillin Sod/ Tazobactam Sod 4.5 gm/Dextrose 120 ml @ 30 mls/hr Q8H IV 11/15/16 18:00 11/22/16 17:59 11/17/16 02:06 30 MLS/HR Miscellaneous Information (Pending Order) 1 ea Q4H N/A 11/15/16 16:30 12/15/16 16:29 11/15/16 20:48 1 EA Insulin Human Regular 250 units/ Sodium Chloride 252.5 ml @ 0 mls/hr DAILY@1130 IV 11/15/16 13:45 12/15/16 13:44 11/17/16 02:58 5 MLS/HR Ascorbic Acid 1500 mg/Sodium Chloride 103 ml @ 206 mls/hr Q6H IV 11/15/16 14:30 11/19/16 08:59 11/17/16 08:05 206 MLS/HR Hydrocortisone Sodium Succinate 50 mg/Syringe 1 ml @ 4 mls/min Q6H IV 11/15/16 14:30 12/15/16 14:29 11/17/16 07:53 4 MLS/MIN Thiamine HCl 200 mg/Sodium Chloride 52 ml @ 210 mls/hr Q12H IV 11/15/16 14:30 12/15/16 14:29 11/17/16 02:06 210 MLS/HR Acetaminophen (Ofirmev Iv) 1,000 mg Q8H PRN IV 11/15/16 17:45 12/15/16 17:44 11/17/16 05:12 1,000 MG Heparin Sodium (Porcine) (Heparin 10 Unit/ ml 5 ml Flush) 5 ml PRN PRN FLUSH 11/16/16 01:00 12/16/16 00:59 Aspirin (Aspirin Chew) 81 mg QAM PO 11/16/16 09:00 12/16/16 08:59 11/17/16 07:53 81 MG Vancomycin HCl 1250 mg/Sodium Chloride 275 ml @ 125 mls/hr Q12H IV 11/16/16 18:00 11/22/16 17:59 11/17/16 05:31 125 MLS/HR Furosemide 40 mg/ Syringe 4 ml @ 4 mls/min Q12 IV 11/16/16 21:00 12/16/16 09:59 11/17/16 07:53 4 MLS/MIN Albumin Human (Albumin 25%) 25 gm Q6 IV 11/17/16 12:00 11/20/16 11:59
[2016-11-17] MEDS ORDERED: ALBUMIN HUMAN 25% 12.5 GM/50 ML VIAL IV SCH ×2 (10:00→12:00)
--- NOTE | 2016-11-17 10:53 | DIAGNOSTIC IMAGING REPORT ---
CHEST ONE VIEW PORTABLE CLINICAL HISTORY: s/p chest tube tube position COMPARISON STUDY: 11/16/2016 FINDINGS: Endotracheal tube 4 cm both jennifer. Nasogastric tube gastric fundus. Placement of right basilar drainage catheter with improved aeration right base. No significant pneumothorax. Slightly progressive increase in density left mid to lower lung. [place]-Henry catheter placed in left pulmonary artery IMPRESSION: Interval placement of right basilar drainage catheter with improved aeration right lung base. No pneumothorax. Tubes and lines positioned as noted. [place]-Henry catheter placed in the left pulmonary artery The above report was generated using voice recognition software. It may contain grammatical, syntax or spelling errors. Electronically signed by: Idris Schaffer M.D. 11/17/2016 10:52 AM Dictated Date/Time: 11/17/2016 10:50 AM
[2016-11-17 11:21] LABS: PLEURAL FLUID APPEARANCE CLEAR; PLEURAL FLUID COLOR YELLOW; PLEURAL FLUID MONONUC RELAT 45.7 %; PLEURAL FLUID POLYNUC 54.3 %; PLEURAL FLUID SOURCE RIGHT LUNG; PLEURAL FLUID WBC (A) 357 /uL
[2016-11-17 12:46] LABS: BUN/CREATININE RATIO 10.1 (10-20); CALCIUM 6.3 mg/dl (8.5-10.1); CREATININE 1.2 mg/dl (0.60-1.40); POTASSIUM 3.9 mmol/L (3.5-5.1)
--- NOTE | 2016-11-17 12:56 | Procedure Note ---
Procedure Note Procedure Date Nov 17, 2016. Procedure Description Procedure Name: RIGHT Radial Artery Line Procedure time out: side/site verified, patient ID confirmed, correct procedure Consent obtained: verbal, emergent consent implied Time of procedure: 12:00 Performed by: physician metal lather Indications: diagnostic, therapeutic Contraindications: none Description: Artery AND Vein visualized: Using Bedside Ultrasound Noncompressible RIGHT Radial Artery: Noted Guidewire or Short Catheter seen in artery prior to guidewire placement: YES Line confirmed in Artery with ultrasound: YES Impression: Likely clotted RIGHT radial artery as cannulation confirmed via bedside ultrasound and guidewire thread on 3 separate occasions despite no blood return. Plan: Continue with LEFT Radial artery site. Assess need for new site if line fails. Complications: other (Failed Canulation) Patient tolerated procedure: well Post-procedure vital signs: reviewed and stable
--- NOTE | 2016-11-17 13:29 | NEPHROLOGY CONSULTATION ---
DATE OF CONSULTATION: 11/17/2016 ATTENDING OF RECORD: Dr. Bain. REASON FOR CONSULTATION: Hyponatremia. HISTORY OF PRESENT ILLNESS: This is a 65-year-old male who presented with chest pain with a STEMI. The patient on admission had cardiac catheterization and currently now is intubated on 100% FiO2. Dr. Morelos of critical care recently placed a chest tube this morning on the right side and got 1200 mL out. The patient overall is 13 liters positive. Sodium levels during the hospitalization started at 141 on the , on the it went to 125 and today is down to 116. The patient currently is on albumin 25 grams IV q. 6 hours as well as Lasix 40 IV q. 12 hours. He is getting about 250 mL of IV fluids an hour and is currently on Levophed drip. The patient is with coarse breath sounds, sedated on the vent 100% FiO2 with the chest tube and a pressor. He has bloody secretions to suction. Pupils are sluggish. Bowel sounds are minimally active. He did have urine osmolality of 485. Urine random sodium of 23. REVIEW OF SYSTEMS: Unobtainable. PAST MEDICAL HISTORY: Back pain, hyperlipidemia, and hypertension. PAST SURGICAL HISTORY: None noted. FAMILY HISTORY: Significant for heart disease. SOCIAL HISTORY: Quit smoking in 1980. No alcohol. No drugs. Lives with . CURRENT MEDICATIONS: Albumin 25 grams IV q. 6 hours, Lasix 40 IV q. 12 hours, vancomycin 1250 mg IV q. 12 hours, aspirin 81 mg a day, Zosyn 4.5 grams IV q. 8 hours, ascorbic acid 1500 mg IV q. 6 hours, hydrocortisone 50 IV q. 6 hours, thiamine IV q. 12 hours, insulin drip, Levophed drip, Plavix 75 mg a day, Lipitor 80 mg a day, and Protonix 40 IV q. 12 hours. PHYSICAL EXAMINATION: VITAL SIGNS: Temperature 38, pulse 103, blood pressure 95/78 and satting 90% on 100% FiO2. GENERAL: Sedated. Eyes sluggish. ENT: Moist mucous membranes. NECK: Supple. PULMONARY: Coarse breath sounds. CARDIAC: Tachy. ABDOMEN: No bowel sounds detected. Soft and nondistended. EXTREMITIES: Taut skin. Appears edematous. NEUROLOGICALLY: Sedated. DERMATOLOGIC: No rash or ulcers noted. LABORATORY DATA: White count 19,000. H&H 12 and 35. Platelet count is 235. Blood gas from this morning shows a pH 7.3, pCO2 of 33, pO2 of 66, bicarbonate 16 on 50% FiO2. INR is 1.2. Chemistries are pending for noon. LDH is elevated at 924. Sodium level is 116, potassium is 4.1, chloride is 85, bicarbonate is 21, BUN is 13, creatinine is 1.3, glucose is 100, and calcium is 6.5. Last albumin of 1.9. Chest x-ray from today shows interval placement of right basilar drainage catheter with improved aeration of the right lung base. No pneumothorax. ASSESSMENT AND PLAN: Hyponatremia. The patient's volume status appears hypervolemic at this time with third spacing of fluid. Sodium levels have trended down quickly from 141 to 125 to 116. The patient now is requiring about 250 mL of fluid per hour to maintain vital signs appropriately. Have concentrated volume as much as possible and we will speak to pharmacy to see what we can mix with normal saline to try to avoid further D5W. Agree with the Lasix 40 IV q. 12 hours and will speak with Dr. Morelos of critical care to see if we should increase the Lasix dose in an attempt to help improve the sodium levels. One could consider giving 3% normal saline 100 mL periodically to try to maintain the serum sodium above 120. The difficulty with this is that the patient is already on 100% FiO2 and is showing signs of fluid overloaded state. If sodium levels continue to trend down, we will recommend doing 3% normal saline at 100 mL bolus to try to help improve the sodium levels with the goal of above 120. We will speak to Dr. Morelos, concentrate the fluids as much as possible, continue IV diuretics and consider increasing the Lasix dose. Follow urine osmolalities and BMPs periodically with the goal to keep serum sodium above 120; however, when one looks at the clinical constellation of symptoms and the comorbidities in the patient, patient with a grave prognosis, we will continue the current measures. I appreciate the consultation. MELISSA
[2016-11-17] MEDS ORDERED: DOPamine 400MG / 250ML D5W ONE (13:46)
[2016-11-17] MEDS ORDERED: POTASSIUM CHLR 20 MEQ / WTR 40 MEQ in PREMIXED WATER 100 ML IV SCH (14:00)
[2016-11-17] MEDS ORDERED: DOPAMINE 400MG / D5W IV PRN (14:00)
[2016-11-17] MEDS ORDERED: KETAMINE HCL INJ 500 MG in SODIUM CHLORIDE 0.9% 500ML 490 ML IV PRN (14:00)
[2016-11-17] MEDS ORDERED: DEXTROSE 5% 100 ML BAG IV ONE (14:55)
[2016-11-17] MEDS ORDERED: AMIODARONE HCL INJ 50 MG/ML 3 ML VIAL IV ONE (14:55)
[2016-11-17] MEDS ORDERED: SODIUM CHLORIDE 3% 500 ML BAG IV ONE (14:55)
[2016-11-17] MEDS ORDERED: SODIUM BICARB 8.4% INJ 50 MEQ/50 ML SYR IV ONE (14:55)
[2016-11-17] MEDS ORDERED: DEXTROSE 50% 50 ML SYR IV ONE (14:55)
[2016-11-17] MEDS ORDERED: DOPamine 400MG / 250ML D5W IV ONE (14:55)
[2016-11-17] MEDS ORDERED: SODIUM CHLORIDE 0.9% 10ML FLUSH IV ONE (14:55)
[2016-11-17] MEDS ORDERED: ATROPINE SULFATE 0.1 MG/ML 10 ML SYR IV ONE (14:55)
[2016-11-17] MEDS ORDERED: POTASSIUM CHLR 20 MEQ / WTR 20 MEQ in PREMIXED WATER 100 ML IV SCH (15:00)
[2016-11-17 15:02] LABS: ISTAT ARTERIAL BLOOD GAS HCO3 40 meq/L (19-24); ISTAT ARTERIAL BLOOD GAS PCO2 > 115 mmHg (35-46); ISTAT ARTERIAL BLOOD GAS PO2 43 mmHg (80-95); ISTAT ARTERIAL BLOOD GAS pH 7.14 (7.35-7.45); ISTAT CARBON DIOXIDE > 40 mEq/l (24-31); ISTAT HEMATOCRIT 33 % (42-52); ISTAT HEMOGLOBIN 11.2 g/dl (14.0-18.0); ISTAT SODIUM 131 mEq/L (135-144)
--- NOTE | 2016-11-17 16:43 | Progress Note ---
Progress Note Date of Service Nov 17, 2016. Progress Note PRONOUNCEMENT Prolonged resuscitation attempted after cardiopulmonary arrest. Resuscitation was not successful and efforts ceased at 14:56. Agonal rhythm followed by asystole at 14:58. Pupils midposition / fixed. No heart sounds or respirations. Cause of : respiratory failure due to pulmonary edema due to cardiogenic shock due to acute anterior myocardial infarction Family present and offered condolences. certificate will be completed electronically by the undersigned. .
--- NOTE | 2016-11-17 17:16 | Critical Care Progress Note ---
Critical Care Progress Note Date of Service Nov 17, 2016. Attending Dr. Morelos Subjective ROS is not obtainable. Objective S1S2 RRR, Pa catheter showing the PAD of 23 and PAOP of 19, no JVP, lungs with rhonchi, abdomen is benign, CCE. neuro he is sedated. Current SOFA Score SOFA Score Response (Comments) Value PaO2/FiO2 (mmHg) < 200 3 SaO2 / FIO2 142 - 220 2 Platelets (x10) > 150 0 Bilirubin (mg/dL) < 1.2 0 [place] Coma Score 6 - 9 3 Level of Hypotension MAP less than 70 1 Creatinine (mg/dL) 1.2 - 1.9 1 Total 10 Previous SOFA Scores 5 Assessment & Plan 1- NSTEMI s/p stenting of the LAD. 2- acute resp failure, intubated day 3. 3- hyponatremia developed yesterday combination of Vasopressin and fluid overload. 4- cardiogenic shock converted to distributive shock. 5- bilateral pleural effusion. 6- COPD. 7- ARDS. 8- possible splanchnic ischemia. Plan: 1- continue fentanyl and versed for sedation and adjust for volume of distribution. 2- continue vent support with Vap bundle. 3- stop vasopressin due to the hyponatremia. 4- obtain last hemodynamic profile, with ABG and MVO2. 5- dc Hitesh and Dobutamin. 6- continue dopa and levo for now. 7- the HP reviewed showing poor cardiac output with elevated SV and decreased LVSW. this is compatible with CHF. 8- PAOP is 21 with CVP 17, will continue with lasix at 40 mg q6h. 9- start albumin infusion while on lasix. 10- attempted to change the A line but the pt so clamped in the periphery. 11- dc PA catheter, removed without any arrhythmia and complication. 12- Labs every 4 hrs to monitor the hyponatremia. 13- chest tube placement right sided placed with pig tail , 1600 ml removed and placed to suction. 14. US to the left pleural effusion did not show significant pleural fluid. 15- discussed with the family in details on several occasions. At 2:24 I was called to the bed side as the pt is having massive hemoptysis from the ETT, cyanotic and bradycardic without a pulse., code blue started with CPR and the pt went into V tach arrest, multiple defib shocks delivered throughout the code with rhythm alternating between V tach and V fib , also occasional bradycardia with wide complex , treated with several doses of Epi and given also Bicarb, atropine, ambu bagging, CPR non stop. epi and dopa drips started, Fentanyl and versed stopped, Dr. Reyez was at the bed side, Dr. Bain presented at the bed side, unable to recover a life sustaining rhythm, the massive hemoptysis continued, family were called to the bed side, after 34 minutes the code was called off and the pt pronounced at 2:56 pm . Cause of was natural due to STEMI , ARDS with massive hemoptysis, also, profound hyponatremia, fluid overload and possible splanchnic ischemia. discussed with the and the family, emotional support provided. the PCP was notified via Dr. Bain, appreciate all the providers and the staff involved in the care of this pt. CCT 90 min excluding procedure time. Consults & Procedures Consultants: cardiology. Procedures: non today Data Medications: Current Inpatient Medications Medications (Trade) Dose Ordered Sig/Guillaume Route Start Time Stop Time Status Last Admin Dose Admin Atropine Sulfate (Atropine Sulfate 0.1MG/Ml Inj) 0.5 mg ONE PRN IV 11/15/16 04:00 12/15/16 03:59 Ondansetron HCl 8 mg/Dextrose 54 ml @ 200 mls/hr Q6H PRN IV 11/15/16 04:00 12/15/16 03:59 Clopidogrel Bisulfate (plAVix TAB) 75 mg QAM PO 11/15/16 09:00 12/15/16 08:59 11/17/16 07:54 75 MG Atorvastatin Calcium (Lipitor Tab) 80 mg QAM PO 11/15/16 09:00 12/15/16 08:59 11/17/16 07:54 80 MG Fentanyl Citrate (Fentanyl Inj) 50 mcg Q1H PRN IV 11/15/16 04:00 11/29/16 03:59 11/15/16 05:02 50 MCG Midazolam HCl (Versed Inj) 1 mg Q1HWA PRN IV 11/15/16 04:00 12/15/16 03:59 Midazolam HCl 250 ml @ 0 mls/hr Q0M PRN IV 11/15/16 03:52 12/15/16 03:51 11/17/16 02:51 16 MLS/HR Glucose (Glucose 40% Gel) 15-30 GRAMS 15 GRAMS... UD PRN PO 11/15/16 06:30 12/15/16 06:29 Glucose (Glucose Chew Tab) 4-8 Tablets 4 Tabl... UD PRN PO 11/15/16 06:30 12/15/16 06:29 Dextrose (Dextrose 50% 50ML Syringe) 25-50ML OF 50% DW IV FOR... UD PRN IV 11/15/16 06:30 12/15/16 06:29 Glucagon (Glucagon Inj) 1 mg UD PRN SQ 11/15/16 06:30 12/15/16 06:29 Chlorhexidine Gluconate (Peridex Oral Soln) 15 ml DAILY MT 11/15/16 09:00 12/15/16 08:59 11/17/16 07:56 15 ML Artificial Tears (Artificial Tears) 1 drops DAILY OP 11/15/16 09:00 12/15/16 08:59 11/17/16 07:56 1 DROPS Pantoprazole Sodium 40 mg/ Syringe 10 ml @ 5 mls/min Q12H IV 11/15/16 09:00 12/15/16 08:59 11/17/16 07:53 5 MLS/MIN Piperacillin Sod/ Tazobactam Sod (Consult) 1 ea UD PRN N/A 11/15/16 09:15 12/15/16 09:14 Vancomycin HCl (Consult) 1 ea UD PRN N/A 11/15/16 09:15 12/15/16 09:14 Fentanyl Citrate 250 ml @ 0 mls/hr Q0M PRN IV 11/15/16 09:45 11/29/16 09:44 11/16/16 22:17 20 MLS/HR Norepinephrine Bitartrate 8 mg/ Dextrose 508 ml @ 0 mls/hr Q0M PRN IV 11/15/16 09:45 12/15/16 09:44 11/17/16 05:36 165 MLS/HR Silver Nitrate/ Potassium Nitrate (Silver Nitrate Applicators) 1 pkt UD PRN EXT 11/15/16 10:30 12/15/16 10:29 Piperacillin Sod/ Tazobactam Sod 4.5 gm/Dextrose 120 ml @ 30 mls/hr Q8H IV 11/15/16 18:00 11/22/16 17:59 11/17/16 11:03 30 MLS/HR Miscellaneous Information (Pending Order) 1 ea Q4H N/A 11/15/16 16:30 12/15/16 16:29 11/15/16 20:48 1 EA Insulin Human Regular 250 units/ Sodium Chloride 252.5 ml @ 0 mls/hr DAILY@1130 IV 11/15/16 13:45 12/15/16 13:44 11/17/16 11:42 5 MLS/HR Ascorbic Acid 1500 mg/Sodium Chloride 103 ml @ 206 mls/hr Q6H IV 11/15/16 14:30 11/19/16 08:59 11/17/16 08:05 206 MLS/HR Hydrocortisone Sodium Succinate 50 mg/Syringe 1 ml @ 4 mls/min Q6H IV 11/15/16 14:30 12/15/16 14:29 11/17/16 07:53 4 MLS/MIN Thiamine HCl 200 mg/Sodium Chloride 52 ml @ 210 mls/hr Q12H IV 11/15/16 14:30 12/15/16 14:29 11/17/16 02:06 210 MLS/HR Acetaminophen (Ofirmev Iv) 1,000 mg Q8H PRN IV 11/15/16 17:45 12/15/16 17:44 11/17/16 05:12 1,000 MG Heparin Sodium (Porcine) (Heparin 10 Unit/ ml 5 ml Flush) 5 ml PRN PRN FLUSH 11/16/16 01:00 12/16/16 00:59 Aspirin (Aspirin Chew) 81 mg QAM PO 11/16/16 09:00 12/16/16 08:59 11/17/16 07:53 81 MG Vancomycin HCl 1250 mg/Sodium Chloride 275 ml @ 125 mls/hr Q12H IV 11/16/16 18:00 11/22/16 17:59 11/17/16 05:31 125 MLS/HR Albumin Human (Albumin 25%) 25 gm Q6H IV 11/17/16 10:00 11/20/16 09:59 11/17/16 11:04 25 GM Ketamine HCl 500 mg/Sodium Chloride 500 ml @ 0 mls/hr Q0M PRN IV 11/17/16 14:00 12/17/16 13:59 Dopamine HCl/ Dextrose 250 ml @ 0 mls/hr Q0M PRN IV 11/17/16 14:00 12/17/16 13:59 Furosemide 40 mg/ Syringe 4 ml @ 4 mls/min Q6 IV 11/17/16 18:00 12/16/16 09:59 Potassium Chloride 20 meq/ Prmx 100 ml @ 50 mls/hr Q2H IV 11/17/16 15:00 11/17/16 18:59 Vital Signs: Date Time Temp Pulse Resp B/P (MAP) Pulse Ox O2 Delivery O2 Flow Rate FiO2 11/17/16 14:51 36.8 145 0 29/ (19) 98 64/13 11/17/16 14:47 36.9 151 0 (25) 68 49/9 11/17/16 14:44 36.9 134 0 99/ (25) 100 47/10 11/17/16 14:24 36.3 95 0 45/12 (19) 81 54/25 11/17/16 14:00 37.2 94 23 (61) 100 90/49 11/17/16 13:01 37.4 97 20 85/63 (66) 100 11/17/16 13:00 37.4 94 28 100 11/17/16 12:50 37.4 96 32 99/76 (80) 100 11/17/16 12:01 37.5 98 19 92/80 (46) 99 300/300 58/36 11/17/16 12:00 37.5 98 20 (48) 98 300/300 60/39 11/17/16 11:15 100 11/17/16 11:01 37.5 95 20 98/72 (39) 98 90/61 52/28 11/17/16 11:00 37.5 95 18 (40) 98 89/59 53/29 11/17/16 10:47 37.5 100 18 90/68 (76) 98 87/59 53/29 11/17/16 10:11 37.6 94 30 (39) 78/54 52/27 11/17/16 10:01 37.6 97 19 145/120 (38) 300/47 53/26 11/17/16 10:00 37.6 97 28 (38) 76/53 50/26 11/17/16 09:00 37.7 95 14 (40) 83 75/50 54/31 11/17/16 08:01 37.8 97 27 94/64 (41) 92 85/57 55/30 11/17/16 08:00 37.9 96 27 (41) 92 84/57 54/30 11/17/16 08:00 94 Mechanical Ventilator 100 11/17/16 08:00 100 11/17/16 07:25 50 11/17/16 07:00 38.0 103 28 (40) 90 80/56 53/31 11/17/16 06:01 38.1 102 30 95/78 (39) 95 81/58 53/30 11/17/16 05:58 70 11/17/16 05:30 38.2 102 19 81/57 94 52/29 11/17/16 05:01 38.2 104 18 85/73 (37) 95 80/56 49/27 11/17/16 04:01 38.0 97 24 105/74 (40) 96 96/63 53/30 11/17/16 04:00 100 11/17/16 04:00 92 Mechanical Ventilator 100 11/17/16 03:40 38.0 97 30 (38) 90 87/59 51/26 11/17/16 03:01 37.9 99 27 118/82 (42) 91 106/66 60/29 11/17/16 02:30 37.9 101 27 119/73 92 68/35 11/17/16 02:01 37.9 98 21 130/96 (39) 91 105/68 55/28 11/17/16 02:00 100 11/17/16 01:31 37.8 102 16 133/85 (42) 92 105/70 58/32 11/17/16 01:01 37.8 96 27 120/98 (43) 91 104/68 57/32 11/17/16 01:00 37.8 96 28 105/70 92 58/32 11/17/16 00:30 37.7 108 20 89/79 93 61/33 11/17/16 00:01 37.7 110 22 117/76 (48) 92 112/74 62/38 11/17/16 00:00 100 11/17/16 00:00 92 Mechanical Ventilator 100 11/16/16 23:29 37.7 109 24 116/71 (37) 94 121/55 11/16/16 23:27 37.7 99 22 102/66 95 56/31 11/16/16 23:00 37.7 99 19 101/65 96 55/32 11/16/16 22:30 37.7 114 19 112/69 94 59/36 11/16/16 22:01 37.6 98 21 115/73 (39) 91 98/63 54/28 11/16/16 21:30 37.6 96 27 89/59 89 50/26 11/16/16 21:01 37.5 116 28 105/72 (37) 91 93/61 59/21 11/16/16 20:30 37.5 126 29 102/65 92 68/25 11/16/16 20:01 37.5 115 25 115/74 (44) 94 104/65 70/23 11/16/16 20:00 92 Mechanical Ventilator 40 11/16/16 20:00 37.5 116 27 105/66 94 71/24 11/16/16 20:00 40 11/16/16 20:00 40 11/16/16 19:48 37.5 109 26 104/65 92 71/30 11/16/16 19:30 37.5 103 26 104/64 93 69/26 11/16/16 18:30 37.4 117 25 (44) 95 94/62 68/28 11/16/16 18:15 37.4 113 25 (44) 94 100/63 69/30 11/16/16 18:01 37.4 101 24 106/71 (42) 96 98/61 67/26 11/16/16 18:00 37.4 101 24 (40) 96 100/61 65/23 11/16/16 17:30 40 11/16/16 17:00 95 24 (36) 95 101/61 64/19 Laboratory Results: Last 24 Hours Test 11/16/16 17:51 11/16/16 19:49 11/16/16 23:49 11/17/16 03:41 Bedside Glucose (other) 145 mg/dl 152 mg/dl 157 mg/dl 147 mg/dl Test 11/17/16 05:42 11/17/16 08:47 11/17/16 08:50 11/17/16 08:55 White Blood Count 19.82 K/uL Red Blood Count 4.12 M/uL Hemoglobin 12.9 g/dL Hematocrit 35.5 % Mean Corpuscular Volume 86.2 fL Mean Corpuscular Hemoglobin 31.3 pg Mean Corpuscular Hemoglobin Concent 36.3 g/dl Platelet Count 235 K/uL Mean Platelet Volume 12.2 fL Neutrophils (%) (Auto) 87.2 % Lymphocytes (%) (Auto) 7.1 % Monocytes (%) (Auto) 5.4 % Eosinophils (%) (Auto) 0.0 % Basophils (%) (Auto) 0.0 % Neutrophils # (Auto) 17.29 K/uL Lymphocytes # (Auto) 1.40 K/uL Monocytes # (Auto) 1.08 K/uL Eosinophils # (Auto) 0.00 K/uL Basophils # (Auto) 0.00 K/uL RDW Standard Deviation 41.2 fL RDW Coefficient of Variation 13.0 % Immature Granulocyte % (Auto) 0.3 % Immature Granulocyte # (Auto) 0.05 K/uL Toxic Vacuolation 1+ Echinocytes 1+ Sodium Level 116 mmol/L 116 mmol/L Potassium Level 4.2 mmol/L 4.1 mmol/L Chloride Level 86 mmol/L 85 mmol/L Carbon Dioxide Level 18 mmol/L 21 mmol/L Anion Gap 12.0 mmol/L 10.0 mmol/L Blood Urea Nitrogen 12 mg/dl 13 mg/dl Creatinine 1.20 mg/dl 1.30 mg/dl Est Creatinine Clear Calc Drug Dose 66.2 ml/min 61.1 ml/min Estimated GFR () 72.6 65.9 Estimated GFR (Non- 62.6 56.9 BUN/Creatinine Ratio 9.8 10.0 Random Glucose 112 mg/dl 100 mg/dl Calcium Level 6.3 mg/dl 6.5 mg/dl Phosphorus Level 2.6 mg/dl Magnesium Level 1.8 mg/dl Osmolality 236 mOsm/kg Urine Color DK YELLOW Urine Appearance CLEAR Urine pH 5.0 Urine Specific [place] 1.026 Urine Protein NEG Urine Glucose (UA) NEG Urine Ketones NEG Urine Occult Blood TRACE Urine Nitrite NEG Urine Bilirubin NEG Urine Urobilinogen NEG Urine Leukocyte Esterase NEG Urine WBC (Auto) 1-5 /hpf Urine RBC (Auto) 10-30 /hpf Urine Hyaline Casts (Auto) 1-5 /lpf Urine Epithelial Cells (Auto) 10-20 /lpf Urine Bacteria (Auto) NEG Urine Crystals URIC ACID Urine Pathogenic Casts 1-5 GRANULAR CASTS /lpf Urine Yeast (Auto) Urine Osmolality 485 mOms/kg Urine Random Sodium 23 mEq/L Mixed Venous Blood pH 7.31 Mixed Venous Blood PCO2 44 mmHg Mixed Venous Blood PO2 33 mmHg Mixed Venous Blood HCO3 22 mmol/L Mixed Venous Blood Base Excess -4.3 mEq/L Mixed Venous Blood O2 Saturation 62.8 % Lactate Dehydrogenase 924 U/L Total Protein 4.9 gm/dl Procalcitonin 4.50 ng/ml Test 11/17/16 09:00 11/17/16 10:38 11/17/16 11:18 11/17/16 11:56 Blood Gas Sample Site Art Line Bedside Blood Gas pH (LAB) 7.30 Bedside Blood Gas pCO2 (LAB) 33 mmHg Bedside Blood Gas pO2 (LAB) 66 mmHg Bedside Blood Gas HCO3 (LAB) 16 meq/L Bedside Blood Gas Total CO2 17 mEq/l Bedside Blood Gas Base Excess (LAB) -10.0 meq/L Bedside Blood Gas O2 Saturation 90.0 % Gold Test NA Oxygen Delivery Device Ventilator Bedside Oxygen Rate (breaths/min) 24 Bedside FiO2 50 % Blood Gas PEEP 50 Pleural Fluid Source RIGHT LUNG Pleural Fluid Color YELLOW Pleural Fluid Appearance CLEAR Pleural Fluid WBC 357 /uL Pleural Fluid RBC < 3000 /uL Pleural Fluid Polynuclear WBCs % 54.3 % Pleural Fluid Mononuclear WBCs % 45.7 % Pleural Fluid Total Protein 1.0 g/dl Pleural Fluid LDH 234 IU Bedside Glucose (other) 129 mg/dl Sodium Level 117 mmol/L Potassium Level 3.9 mmol/L Chloride Level 87 mmol/L Carbon Dioxide Level 18 mmol/L Anion Gap 11.0 mmol/L Blood Urea Nitrogen 12 mg/dl Creatinine 1.20 mg/dl Est Creatinine Clear Calc Drug Dose 66.2 ml/min Estimated GFR () 72.6 Estimated GFR (Non- 62.6 BUN/Creatinine Ratio 10.1 Random Glucose 97 mg/dl Calcium Level 6.3 mg/dl Test 11/17/16 14:52 Bedside Hemoglobin 11.2 g/dl Bedside Hematocrit 33 % Bedside Blood Gas pH (LAB) 7.14 Bedside Blood Gas pCO2 (LAB) > 115 mmHg Bedside Blood Gas pO2 (LAB) 43 mmHg Bedside Blood Gas HCO3 (LAB) 40 meq/L Bedside Blood Gas Total CO2 > 40 mEq/l Bedside Blood Gas Base Excess (LAB) 11.0 meq/L Bedside Blood Gas O2 Saturation 59.0 % Bedside Sodium 131 mEq/L Bedside Potassium 3.8 mEq/L
--- NOTE | 2016-11-17 17:21 | Procedure Note ---
Procedure Note Procedure Date Nov 17, 2016. Procedure Description Procedure Name: chest tube placement. Procedure time out: side/site verified, patient ID confirmed, correct procedure Consent obtained: verbal Performed by: attending Indications: therapeutic Contraindications: none Description: the pt needed the chest tube due to persistent pleural effusion bilaterally with increasing FIO2 requirement on the vent. the right sided at the level of the 5th ICS at the mid axillary line, the skin prepped with chlorhexidine and injected with 15 ml 1% lido, then using [employer] tech, the pig tail catheter placed into the pleural cavity ( right sided) with ease, using a dilator, no scalpel, the pig tail placed to 16 dc, 8 fr, and connected to adaptor to the suction at 20 cm, 1600 ml of yellow fluid removed instantly, CXR confirmed the position of the catheter and reduction of the pleural effusion, the catheter secured with 2-0 silk suture and covered with sterile surgical dressing, the procedure done with strict sterility, in the ICU room 10. no immediate complication. Complications: none
[2016-11-17] MEDS ORDERED: VANCOMYCIN TROUGH ONE (17:30)
[2016-11-17] MEDS ORDERED: FUROSEMIDE INJ 40 MG in SYRINGE 0 ML IV SCH (18:00)
--- NOTE | 2016-11-17 20:14 | Discharge Summary ---
Discharge Summary Date of Service Nov 17, 2016. Discharge Summary Admission Date: Nov 15, 2016 at 03:32 Discharge Date: Nov 17, 2016 Discharge Disposition: Principal Diagnosis: anterior myocardial infarction cardiogenic shock acute left ventricular systolic heart failure pulmonary edema acute respiratory failure hyperglycemia hyponatremia . Procedures: emergent cardiac catheterization PCI LAD x 2 with drug-eluting stents endotracheal intubation mechanical ventilation right subclavian triple lumen central venous catheter right internal jugular introducer catheter [place] catheter right chest tube echocardiogram cardiac monitoring IV medications . Consultations: Cardiology Critical Care Medicine Nephrology . Admission Information HPI (per Admitting provider): HISTORY OF PRESENT COMPLAINT: He is a 65-year-old male with significant past medical history including hypertension, hyperlipidemia, history of duodenal ulcer, history of back pain with sciatica and a strong family history of ischemic heart disease. Apparently he has been complaining of chest pain off and on since yesterday morning. The pain got worse around 5:00 p.m. yesterday and it went up to about 10/10. At that time, he was feeling that somebody was sitting on his chest associated with shortness of breath, diaphoresis, nausea. He called EMS for help and he received 324 mg of aspirin and 4 mg of Zofran and also got fentanyl IV. In the Emergency Room, he was noted to have ST elevation MS in the anterior leads and from that point, Heart Alert was called and he was straightaway taken to the cardiac tree tapping laborer by Dr. Reyez. In the tree tapping laborer, the patient was having difficulty breathing and his saturation was going down and also blood pressure was going down as well. At that time, the ER physician was called and he was intubated. The cath was finished and it did show that he has complete occlusion of LAD and he is status post 2 stent placement in that area and also he has blockage of the right coronary artery and circumflex artery had good collaterals. At one point, the thought was given that the patient might need to be transferred to tertiary care center for blood pressure control. He was started with vasopressor and he was transferred to ICU. In the ICU, when I saw the patient, his blood pressure is improving and his saturation is improving as well. He receives Lasix as well for pulmonary edema. . Physical Exam (per Admitting): VITAL SIGNS: In the ICU, temperature 34.8 rectal, pulse is 130, blood pressure 135/62 and saturation 88% on 100% FiO2. HEENT: Unremarkable. NECK: Supple. No JVD, no bruit. CHEST: Decreased breath sounds with coarse crackles at the bases. HEART: S1, S2 regular. No definite murmur appreciated. ABDOMEN: Nondistended, soft, benign. No organomegaly. Bowel sounds present. RECTAL: Deferred. EXTREMITIES: Negative for any edema. CENTRAL NERVOUS SYSTEM: He was intubated and was on sedation. . Hospital Course As detailed in the admission H&P and consultation notes, the patient was a 65 YO male with history of hypertension and dyslipidemia. Presented to ED with anterior ST elevation myocardial infarction. Taken emergently to tree tapping laborer. Found to have 100% proximal LAD occlusion, 75% mid LAD stenosis, 100% RCA occlusion. PCI with SHAWANDA x 2 to LAD lesions performed. Required intubation in tree tapping laborer for respiratory failure due to pulmonary edema and started on pressors for hemodynamic support. Admitted to ICU. Complicated ICU course as detailed in progress notes. Hemodynamic monitoring demonstrated low cardiac output. Required multiple pressors for cardiogenic shock and remained ventilator- dependent. Respiratory status worsened the afternoon of 11/17/16 with worsening oxygenation , unstable cardiac rhythm, cardiac arrest. ACLS initiated. Despite aggressive and prolonged resuscitative efforts, there was no return to spontaneous circulation and ACLS stopped at 14:56. Agonal rhythm followed by asystole at 14:58. Cause of : respiratory failure due to pulmonary edema due to cardiogenic shock due to acute anterior myocardial infarction . Discharge Instructions N/A . Additional Copies To Alex Lobo D.O.
== END 2016-11-17 14:56 | disposition expired | DRG 246 ==
LOC: C.EDB 01:19 → C.MSICU 03:32
PROVIDERS: ADMIT Internal Medicine Cardiovascular Disease; ATTEND Hospitalist
PROC: 02H Heart and Great Vessels, Insertion (ICD-10-PCS; 2016-11-15)
PROC: 03HY32Z Insertion of Monitoring Device into Upper Artery, Percutaneous Approach (ICD-10-PCS; 2016-11-15)
PROC: 02HV33Z Insertion of Infusion Device into Superior Vena Cava, Percutaneous Approach (ICD-10-PCS; 2016-11-15)
PROC: 0BH17EZ Insertion of Endotracheal Airway into Trachea, Via Natural or Artificial Opening (ICD-10-PCS; 2016-11-15)
PROC: 5A1945Z Respiratory Ventilation, 24-96 Consecutive Hours (ICD-10-PCS; 2016-11-15)
PROC: 3E033PZ Introduction of Platelet Inhibitor into Peripheral Vein, Percutaneous Approach (ICD-10-PCS; principal; 2016-11-15 03:52)
PROC: B2151ZZ Fluoroscopy of Left Heart using Low Osmolar Contrast (ICD-10-PCS; principal; 2016-11-15 03:52)
PROC: B2111ZZ Fluoroscopy of Multiple Coronary Arteries using Low Osmolar Contrast (ICD-10-PCS; principal; 2016-11-15 03:52)
PROC: 027035Z Dilation of Coronary Artery, One Artery with Two Drug-eluting Intraluminal Devices, Percutaneous Approach (ICD-10-PCS; principal; 2016-11-15 03:52)
PROC: 03HY32Z Insertion of Monitoring Device into Upper Artery, Percutaneous Approach (ICD-10-PCS; 2016-11-17)
PROC: 0WH93YZ Insertion of Other Device into Right Pleural Cavity, Percutaneous Approach (ICD-10-PCS; 2016-11-17)
DX: I21.09 ST elevation (STEMI) myocardial infarction involving other coronary artery of anterior wall (principal); I50.21 Acute systolic (congestive) heart failure; J96.00 Acute respiratory failure, unspecified whether with hypoxia or hypercapnia; E87.1 Hypo-osmolality and hyponatremia; N17.9 Acute kidney failure, unspecified; K72.00 Acute and subacute hepatic failure without coma; Z82.41 Family history of sudden cardiac death; R57.0 Cardiogenic shock; K21.9 Gastro-esophageal reflux disease without esophagitis; Z87.891 Personal history of nicotine dependence; E78.5 Hyperlipidemia, unspecified; Z82.49 Family history of ischemic heart disease and other diseases of the circulatory system; K26.9 Duodenal ulcer, unspecified as acute or chronic, without hemorrhage or perforation; I11.0 Hypertensive heart disease with heart failure; R73.9 Hyperglycemia, unspecified; I25.10 Atherosclerotic heart disease of native coronary artery without angina pectoris; I25.2 Old myocardial infarction; J44.9 Chronic obstructive pulmonary disease, unspecified; E83.42 Hypomagnesemia